=== PATIENT | female | born 1940 | race Caucasian/White ===

== ENCOUNTER → 2016-12-03 | Outpatient (CLI) | payer OTHER ==
[~2016-12-03] MED LIST: ACET-1311 PO; ALLO100T PO; ASPI81TA28 PO; CETI10TA73 PO; CHOL200010 PO; CITA40TA4 PO; CLOP1TAB15 PO; CYAN100020 PO; DICL1GEL34 TOP; FERR325T18 PO; FLV1 PO; METO-217 PO; PANT40TA PO; POLY1SOL6 OPB; SENN-61 PO; SIMV20TA2 PO; TRAM-10 PO
[2016-12-03 12:49] LABS: HEMATOCRIT 38.2 % (37-47); MEAN CORPUSCULAR HEMOGLOBIN 31.9 pg (25-34); MEAN CORPUSCULAR HGB CONC 31.9 g/dl (32-36); MEAN PLATELET VOLUME 10.6 fL (7.4-10.4); PLATELET COUNT 163 K/uL (130-400); RED BLOOD COUNT 3.82 M/uL (4.2-5.4); WHITE BLOOD COUNT 4.51 K/uL (4.8-10.8)
[2016-12-03 13:12] LABS: BLOOD UREA NITROGEN 37 mg/dl (7-18); BUN/CREATININE RATIO 28.4 (10-20); CALCIUM 9.4 mg/dl (8.5-10.1); CARBON DIOXIDE 32 mmol/L (21-32); CHLORIDE 101 mmol/L (98-107); GLUCOSE 72 mg/dl (70-99); POTASSIUM 4.4 mmol/L (3.5-5.1); SODIUM 137 mmol/L (136-145)
== END | disposition home or self-care (01) ==
LOC: C.LABWYN 14:03
PROVIDERS: ATTEND Internal Medicine
DX: I48.91 Unspecified atrial fibrillation (principal); N18.4 Chronic kidney disease, stage 4 (severe)

== ENCOUNTER 2017-03-04 01:22 | Emergency (ER) | payer OTHER ==
[~2017-03-04] VITALS: Ht 157.5 cm; Wt 63.4 kg
[2017-03-04 01:31] VITALS: TEMP 36.5; Ht 157.5 cm; Wt 63.4 kg
[2017-03-04] MEDS ORDERED: CLOP1TAB15 PO (02:37)
[2017-03-04] MEDS ORDERED: SIMV20TA2 PO (02:37)
[2017-03-04] MEDS ORDERED: PANT40TA PO (02:37)
[2017-03-04] MEDS ORDERED: ACET-1311 PO (02:37)
[2017-03-04] MEDS ORDERED: ASPI81TA28 PO (02:39)
[2017-03-04] MEDS ORDERED: CITA40TA4 PO (02:39)
[2017-03-04] MEDS ORDERED: ALLO100T PO (02:39)
[2017-03-04] MEDS ORDERED: FLV1 PO (02:40)
[2017-03-04] MEDS ORDERED: FERR325T18 PO (02:40)
[2017-03-04] MEDS ORDERED: CETI10TA73 PO (02:42)
[2017-03-04] MEDS ORDERED: METO-217 PO (02:42)
[2017-03-04] MEDS ORDERED: DICL1GEL34 TOP (02:43)
[2017-03-04] MEDS ORDERED: SENN-61 PO (02:43)
[2017-03-04] MEDS ORDERED: POLY1SOL6 OPB (02:47)
[2017-03-04] MEDS ORDERED: TRAM-10 PO (02:47)
[2017-03-04] MEDS ORDERED: CHOL200010 PO (02:47)
[2017-03-04] MEDS ORDERED: CYAN100020 PO (02:47)
[2017-03-04 05:11] VITALS: BP 159/90; PULSE 64; O2SAT 98
--- NOTE | 2017-03-04 06:39 | DIAGNOSTIC IMAGING REPORT ---
CT OF THE HEAD WITHOUT CONTRAST CLINICAL HISTORY: Fall. COMPARISON STUDY: No previous studies for comparison. TECHNIQUE: Helical axial images of the head were obtained without IV contrast. Automated exposure control was utilized for the study. A dose lowering technique was utilized adhering to the principles of ALARA. FINDINGS: No acute intracranial hemorrhage, midline shift or mass effect is present. The basilar cisterns are patent. There are no extra-axial collections. Ventricular dilatation is due to atrophy. There is moderate white matter hypodensity which suggests small vessel disease. A moderate size right forehead contusion is present. There is no calvarial fracture. Facial bones will be reported separately. IMPRESSION: 1. No acute intracranial findings. 2. Right forehead contusion. No calvarial fracture. Electronically signed by: Harjeet Myers M.D. 03/04/2017 6:38 AM Dictated Date/Time: 03/04/2017 6:35 AM
--- NOTE | 2017-03-04 06:52 | DIAGNOSTIC IMAGING REPORT ---
CT OF THE CERVICAL SPINE CLINICAL HISTORY: Neck pain status post trauma COMPARISON STUDY: No previous studies for comparison. CT DOSE: 933.08 mGy.cm TECHNIQUE: CT scan of the cervical spine was performed from the skull base to the thoracic inlet. Images are reviewed in the axial, sagittal, and coronal planes. IV contrast was not administered for this examination. A dose lowering technique was utilized adhering to the principles of ALARA. FINDINGS: The visualized portions of the lung apices reveal no evidence of pneumothorax. The prevertebral soft tissues are normal. No fractures or traumatic subluxations are visualized. There are moderately advanced multilevel degenerative changes. There is reversal of the normal cervical lordosis. There is 3.4 mm of anterior subluxation of C3 on C4. There is 3.6 mm of anterior subluxation of C4 on C5. These findings are likely degenerative. IMPRESSION: 1. No acute fractures. 2. Reversal of the normal cervical lordosis 3. 3.4 mm of anterior subluxation of C3 on C4. 3.6 mm of anterior subluxation of C4 and C5. The findings are likely degenerative 4. Multilevel degenerative change Electronically signed by: Roly Hardwick M.D. 03/04/2017 6:50 AM Dictated Date/Time: 03/04/2017 6:47 AM
--- NOTE | 2017-03-04 06:59 | EMERGENCY ROOM VISIT NOTE ---
History Report prepared by Ian: Higinio Solomon Under the Supervision of: Dr. Heron Mcgregor M.D. First contact with patient: 01:31 Chief Complaint: FALL Stated Complaint: FALL History of Present Illness The patient is a 76 year old female who presents to the Emergency Room with complaints of fall that happened prior to arrival. At this time, the patient needed to go the bathroom badly, so she quickly got up to go. On her way to the commode, she tripped and fell, hitting her head and her right arm in the process. She denies any loss of consciousness. She is experiencing a mild headache, posterior neck pain, and right arm pain all secondary to the fall. She denies any facial pain other than her nose. She is currently taking Pradaxa for her history of atrial fibrillation. She denies any hip pain or leg pain. 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 She denies and hip or leg pain. Review of Systems See HPI for pertinent positives & negatives. A total of 10 systems reviewed and were otherwise negative. Past Medical & Surgical Medical Problems: (1) Atrial fibrillation Family History Omitted secondary to patient's age. Social History Smoking Status: Never Smoker Smokeless Tobacco Use: No Alcohol Use: none Drug Use: none Occupation Status: retired Current/Historical Medications Scheduled Acetaminophen (Tylenol), 650 MG PO TID Allopurinol (Zyloprim), 100 MG PO DAILY Aspirin (Aspirin Ec), 81 MG PO DAILY Cetirizine Hcl (All Day Allergy), 5 MG PO DAILY Cholecalciferol (Vitamin D), 2,000 UNIT PO DAILY Citalopram Hydrobromide (Citalopram Hydrobromide), 40 MG PO DAILY Clopidogrel (Plavix), 75 MG PO DAILY Cyanocobalamin (Vitamin B12), 1,000 MCG PO DAILY Diclofenac Sodium (Topical) (Diclofenac Sodium), 1 APPLN TOP BID Ferrous Gluconate (Ferrous Gluconate), 324 MG PO BID Folic Acid (Folic Acid), 1 MG PO Q2D Metoprolol Succinate (Toprol Xl), 50 MG PO BID Pantoprazole (Protonix), 40 MG PO DAILY Polyethylene Glycol-Propylene (Systane Ultra), 2 DROPS OPB BID Senna (Senokot), 1 TAB PO HS Simvastatin (Zocor), 20 MG PO QPM Scheduled PRN Tramadol (Ultram), 50 MG PO Q6 PRN for Pain Allergies Coded Allergies: Ciprofloxacin (Verified Allergy, Unknown, unknown, 03/04/17) Clindamycin (Verified Allergy, Unknown, unknown, 03/04/17) Lisinopril (Verified Allergy, Unknown, unknown, 03/04/17) Physical Exam Vital Signs Date Time Temp Pulse Resp B/P (MAP) Pulse Ox O2 Delivery O2 Flow Rate FiO2 03/04/17 05:11 64 18 159/90 98 03/04/17 03:29 66 18 148/93 97 Room Air 03/04/17 01:31 36.5 85 18 170/102 96 Room Air Physical Exam Constitutional: Vital signs reviewed. Eyes: Pupils are equal round reactive to light. Conjunctiva are noninjected. ENT: Pharynx is clear without erythema or exudate. Mucous membranes are moist. Neck supple without meningeal signs. Hematoma and ecchymosis to the right forehead. Tenderness to the nasal bridge with a small abrasion. No midline tenderness to the c-spine. Respiratory: Clear to auscultation bilaterally. Breath sounds are equal bilaterally. Cardiovascular: Irregularly irregular rhythm and normal rate. No rubs or gallops. GI: Soft, nondistended and nontender. Bowel sounds are present. Musculoskeletal: No peripheral edema. Ecchymosis to the volar aspect of the right forearm. No bony tenderness to the right arm. No hip tenderness. Integumentary: No cyanosis. Neurological: The patient is awake and alert. Cranial nerves II-XII are intact. Motor is 5 out of 5 all extremities. Sensation is intact to light touch all extremities. Normal speech. No pronator drift. GCS 15. Psychiatric: Normal affect. Medical Decision & Procedures ER Provider Diagnostic Interpretation: Radiology results as stated below per my review and the radiologist's interpretation: CT HEAD: No ICH, mass effect or edema. Right frontal scalp hematoma with no underlying fracture. Moderate cerebral volume loss with chronic microvascular ischemia changes. Radiologist: Weston Moreland MD CT FACIAL: Question minimally displaced nasal bone fracture. Correlate for focal tenderness. No other fracture is seen. Right frontal scalp and periorbital hematoma. Radiologist: Weston Moreland MD CT C SPINE: No acute fracture or subluxation. 3 mm anterolisthesis of C3 on C4 and 4 mm anterolisthesis of C4 on C5, likely degenerative. No facet or disk space widening. Multilevel degenerative changes. Radiologist: Weston Moreland MD ED Course 0131: The patient was evaluated in room A12. A complete history and physical exam was performed. 0245: After reassessment, the patient is feeling better. We discussed the her test results and head injury precautions. She verbalized agreement of the treatment plan. She was discharged home. Medical Decision This is a 76-year-old female presents after mechanical fall with facial and head injuries. Differential diagnosis includes contusion, concussion, skull fracture, intracranial hemorrhage, nasal fracture. I did perform a limited focused review of portions of the patient's old chart on the electronic medical record. The patient has had no recent pertinent visits to this hospital. I did evaluate the patient as noted above. The patient suffered a mechanical fall while going to the bathroom. She has injuries to her head and face as well as right arm. Her wound was cleaned and dressed. She has no bony tenderness to her arm or other signs of extremity injuries. I did order a CT of the head, facial bones and cervical spine. I did review the images myself as well as the radiology report as described above. She has no intracranial hemorrhage. She does have a nondisplaced nasal fracture. I did discuss the test results with the patient. She is feeling better at this time. I did discuss head injury precautions with her. She was discharged back home. Head Trauma GCS Score: 15 Medication Reconcilliation Current Medication List: was personally reviewed by me Blood Pressure Screening Patient's blood pressure: Elevated blood pressure Blood pressure disposition: Referred to PCP Impression Primary Impression: Acute head injury Additional Impressions: Injury of right lower arm Nasal fracture Fall Anticoagulated Scribe Attestation The scribe's documentation has been prepared under my direct and personally reviewed by me in its entirety. I confirm that the note above accurately reflects all work, treatment, procedures, and medical decision making performed by me. Departure Information Dispostion Home / Self-Care Referrals Be Ayers D.O. Forms HOME CARE DOCUMENTATION FORM, IMPORTANT VISIT INFORMATION Patient Instructions Broken Nose - [facility], ED Head Injury Closed, My [facility] Additional Instructions You have been examined and treated today on an emergency basis only. This is not a substitute for, or an effort to provide, complete comprehensive medical care. It is impossible to recognize and treat all injuries or illnesses in a single emergency department visit. It is therefore important that you follow up closely with your physician. Call as soon as possible for an appointment. Return for worsening symptoms or if you develop fever, vomiting, severe headache , numbness or weakness on one side of your body, difficulty with your speech, vision or walking or any other concerning symptoms. Problem Qualifiers Primary Impression: Acute head injury Encounter type: initial encounter Qualified Codes: S09.90XA - Unspecified injury of head, initial encounter Additional Impressions: Injury of right lower arm Encounter type: initial encounter Qualified Codes: S59.911A - Unspecified injury of right forearm, initial encounter Nasal fracture Encounter type: initial encounter Fracture type: closed Qualified Codes: S02.2XXA - Fracture of nasal bones, initial encounter for closed fracture Fall Encounter type: initial encounter Qualified Codes: W19.XXXA - Unspecified fall, initial encounter
--- NOTE | 2017-03-04 07:17 | DIAGNOSTIC IMAGING REPORT ---
MAXILLOFACIAL CT CT DOSE: HISTORY: Facial pain. eval for fx TECHNIQUE: Multiaxial CT images of the maxillofacial region were performed and reformatted in the coronal plane without the use of contrast. A dose lowering technique was utilized adhering to the principles of ALARA. COMPARISON: None. FINDINGS: Age-indeterminate minimally displaced nasal bone fractures. Mild right nasal septal deviation. The orbital floors, lamina papyracea, skull base, mandible, pterygoid plates, and zygomatic arches are intact. Right periorbital soft tissue hematoma. The globes and retrobulbar fat are intact. IMPRESSION: Age-indeterminate minimally displaced nasal bone fractures. Right periorbital soft tissue hematoma. Electronically signed by: Cal Griggs M.D. 03/04/2017 7:16 AM Dictated Date/Time: 03/04/2017 7:12 AM
== END 2017-03-04 05:14 | disposition home or self-care (01) ==
LOC: EDBD 01:22 → C.EDA 01:26
DX: S09.90XA Unspecified injury of head, initial encounter (principal); S02.2XXA Fracture of nasal bones, initial encounter for closed fracture; S49.91XA Unspecified injury of right shoulder and upper arm, initial encounter; W01.0XXA Fall on same level from slipping, tripping and stumbling without subsequent striking against object, initial encounter; I48.91 Unspecified atrial fibrillation; Z79.01 Long term (current) use of anticoagulants; Z79.82 Long term (current) use of aspirin; Z79.899 Other long term (current) drug therapy; Z88.2 Allergy status to sulfonamides; Z88.8 Allergy status to other drugs, medicaments and biological substances

== ENCOUNTER 2017-06-30 01:36 | Emergency (ER) | payer OTHER ==
[~2017-06-30] VITALS: Ht 154.9 cm; Wt 63.3 kg
[2017-06-30 01:48] VITALS: TEMP 36.5; Ht 154.9 cm; Wt 63.3 kg
--- NOTE | 2017-06-30 01:53 | EMERGENCY ROOM VISIT NOTE ---
History Report prepared by Ian: Amando Redmond Under the Supervision of: Dr. Artemio Tavares D.O. First contact with patient: 01:41 Chief Complaint: SYNCOPE Stated Complaint: SYNCOPE History of Present Illness The patient is a 77 year old female who presents to the Emergency Room via [facility] following a mechanical fall that occurred just prior to arrival. The patient states that she took a shower this evening with the help of a nurse. She fell asleep in her chair following the shower, and needed to use the restroom when she awoke. 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 She lost consciousness from the fall. Nursing staff states that the patient was found on the floor of the bathroom and was not able to be aroused for 15 minutes. She is complaining of pain in her right forehead and left arm. She is on Plavix and Aspirin as a blood thinner. Source of History: patient Onset: Just prior to arrival Position: head Quality: other (Falling episode) Note: Left arm pain, syncope. Review of Systems See HPI for pertinent positives and negatives. A total of ten systems were reviewed and were otherwise negative. Past Medical & Surgical Medical Problems: (1) Atrial fibrillation Family History No pertinent family history secondary to age. Social History Smoking Status: Never Smoker Alcohol Use: none Drug Use: none Occupation Status: retired Current/Historical Medications Scheduled Acetaminophen (Tylenol), 650 MG PO TID Allopurinol (Zyloprim), 100 MG PO DAILY Aspirin (Aspirin Ec), 81 MG PO DAILY Cetirizine Hcl (All Day Allergy), 5 MG PO DAILY Cholecalciferol (Vitamin D), 2,000 UNIT PO DAILY Citalopram Hydrobromide (Citalopram Hydrobromide), 40 MG PO DAILY Clopidogrel (Plavix), 75 MG PO DAILY Cyanocobalamin (Vitamin B12), 1,000 MCG PO DAILY Diclofenac Sodium (Topical) (Diclofenac Sodium), 1 APPLN TOP BID Ferrous Gluconate (Ferrous Gluconate), 324 MG PO BID Folic Acid (Folic Acid), 1 MG PO Q2D Metoprolol Succinate (Toprol Xl), 50 MG PO BID Pantoprazole (Protonix), 40 MG PO DAILY Polyethylene Glycol-Propylene (Systane Ultra), 2 DROPS OPB BID Senna (Senokot), 1 TAB PO HS Simvastatin (Zocor), 20 MG PO QPM Scheduled PRN Tramadol (Ultram), 50 MG PO Q6 PRN for Pain Allergies Coded Allergies: Ciprofloxacin (Verified Allergy, Unknown, unknown, 03/04/17) Clindamycin (Verified Allergy, Unknown, unknown, 03/04/17) Lisinopril (Verified Allergy, Unknown, unknown, 03/04/17) Physical Exam Vital Signs Date Time Temp Pulse Resp B/P (MAP) Pulse Ox O2 Delivery O2 Flow Rate FiO2 06/30/17 03:10 66 19 122/67 95 Room Air 06/30/17 02:14 65 16 128/69 99 Room Air 06/30/17 02:05 58 06/30/17 01:55 99 Room Air 06/30/17 01:55 99 Room Air 06/30/17 01:48 36.5 60 18 169/81 98 Room Air Physical Exam GENERAL: Awake, alert, well-appearing, in no distress HENT: Right forehead contusion. Oropharynx unremarkable. EYES: Normal conjunctiva. Sclera non-icteric. NECK: Supple. No nuchal rigidity. FROM. No JVD. RESPIRATORY: Clear to auscultation. CARDIAC: Regular rate, normal rhythm. Extremities warm and well perfused. Pulses equal. ABDOMEN: Soft, non-distended. No tenderness to palpation. No rebound or guarding. Large left lateral hernia that is reducible. RECTAL: Deferred. MUSCULOSKELETAL: There is tenderness to the left shoulder proximal. NO obvious deformity. Chest examination reveals no tenderness. The back is symmetrical on inspection without obvious abnormality. There is no CVA tenderness to palpation. No joint edema. LOWER EXTREMITIES: Calves are equal size bilaterally and non-tender. No edema. No discoloration. NEURO: Normal sensorium. No sensory or motor deficits noted. SKIN: No rash or jaundice noted. Medical Decision & Procedures ER Provider Diagnostic Interpretation: X ray results as stated below per my interpretation and radiologist interpretation. Other radiology results as stated below per my review and radiologist interpretation CT HEAD: Involutional and chronic small bessel ischemic changes. No ICH, mass effect, or edema. No skull fracture. Visualized sinuses and mastoid air cells are clear. CT C SPINE: There is cervical kyphosis. Vertebral body heights are maintained. There are multilevel degenerative changes with 2.5 mm atherolisthesis of C2 on C3 and 3.5 anterolisthesis of C3 on C4, likely related to facet arthropathy. There is no evidence of acute fracture or subluxation. Laboratory Results 06/30/17 01:55 Red Blood Count 3.48, Mean Corpuscular Volume 97.4, Mean Corpuscular Hemoglobin 31.9, Mean Corpuscular Hemoglobin Concent 32.7, Mean Platelet Volume 9.5, Neutrophils (%) (Auto) 62.9, Lymphocytes (%) (Auto) 20.5, Monocytes (%) (Auto) 5.8, Eosinophils (%) (Auto) 10.1, Basophils (%) (Auto) 0.3, Neutrophils # (Auto ) 4.53, Lymphocytes # (Auto) 1.48, Monocytes # (Auto) 0.42, Eosinophils # (Auto ) 0.73, Basophils # (Auto) 0.02 06/30/17 01:55 Test 06/30/17 01:55 White Blood Count 7.21 K/uL (4.8-10.8) Red Blood Count 3.48 M/uL (4.2-5.4) Hemoglobin 11.1 g/dL (12.0-16.0) Hematocrit 33.9 % (37-47) Mean Corpuscular Volume 97.4 fL (80-100) Mean Corpuscular Hemoglobin 31.9 pg (25-34) Mean Corpuscular Hemoglobin Concent 32.7 g/dl (32-36) Platelet Count 159 K/uL (130-400) Mean Platelet Volume 9.5 fL (7.4-10.4) Neutrophils (%) (Auto) 62.9 % Lymphocytes (%) (Auto) 20.5 % Monocytes (%) (Auto) 5.8 % Eosinophils (%) (Auto) 10.1 % Basophils (%) (Auto) 0.3 % Neutrophils # (Auto) 4.53 K/uL (1.4-6.5) Lymphocytes # (Auto) 1.48 K/uL (1.2-3.4) Monocytes # (Auto) 0.42 K/uL (0.11-0.59) Eosinophils # (Auto) 0.73 K/uL (0-0.5) Basophils # (Auto) 0.02 K/uL (0-0.2) RDW Standard Deviation 50.8 fL (36.4-46.3) RDW Coefficient of Variation 14.2 % (11.5-14.5) Immature Granulocyte % (Auto) 0.4 % Immature Granulocyte # (Auto) 0.03 K/uL (0.00-0.02) Prothrombin Time 10.7 SECONDS (9.0-12.0) Prothromb Time International Ratio 1.0 (0.9-1.1) Anion Gap 4.0 mmol/L (3-11) Est Creatinine Clear Calc Drug Dose 23.0 ml/min Estimated GFR () 32.9 Estimated GFR (Non- 28.4 BUN/Creatinine Ratio 22.5 (10-20) Calcium Level 9.0 mg/dl (8.5-10.1) Total Bilirubin 0.4 mg/dl (0.2-1) Direct Bilirubin 0.1 mg/dl (0-0.2) Aspartate Amino Transf (AST/SGOT) 49 U/L (15-37) Alanine Aminotransferase (ALT/SGPT) 87 U/L (12-78) Alkaline Phosphatase 68 U/L (45-117) Total Protein 7.1 gm/dl (6.4-8.2) Albumin 3.7 gm/dl (3.4-5.0) Laboratory results reviewed by me ECG Indication: syncope Rate (beats per minute): 63 Rhythm: atrial fibrillation Findings: no acute ischemic change, no ectopy ED Course 0143: The patient was evaluated in room A3. A complete history and physical exam was performed. 0312: I reevaluated the patient. Reevaluation is totally normal. Discussed results and discharge instructions: she verbalized understanding and agreement. The patient is ready for discharge. Medical Decision Differential diagnosis: Etiologies such as vasovagal event, infection, hypoglycemia, electrolyte abnormalities, cardiac sources, intracerebral event, toxicologic, neurologic, as well as others were entertained. Repeat examination of patient at 3:19 AM she is resting in no distress nonfocal GCS of 15. Patient reportedly may have had a non-syncopal fall earlier this evening clearly had right sided for head trauma. Patient's on Plavix and aspirin she underwent lab and radiologic imaging. Patient states that she feels fine on reexamination at 319 and I discussed evaluation with the patient I feel comfortable discharging her home Medication Reconcilliation Current Medication List: was personally reviewed by me Blood Pressure Screening Patient's blood pressure: Normal blood pressure Impression Primary Impression: Closed head injury Additional Impression: Fall Scribe Attestation The scribe's documentation has been prepared under my direction and personally reviewed by me in its entirety. I confirm that the note above accurately reflects all work, treatment, procedures, and medical decision making performed by me. Departure Information Dispostion Home / Self-Care Referrals Be Ayers D.O. (PCP) Patient Instructions ED Head Injury Closed, My [facility] Problem Qualifiers
[2017-06-30 01:55] VITALS: O2SAT 99
[2017-06-30 02:18] LABS: BASO % 0.3 %; BASO ABS # 0.02 K/uL (0-0.2); COMPLETE YES; EOS % 10.1 %; HEMATOCRIT 33.9 % (37-47); IG% 0.4 %; LYMPH % 20.5 %; LYMPH ABS # 1.48 K/uL (1.2-3.4); MEAN CELL VOLUME 97.4 fL (80-100); MEAN CORPUSCULAR HEMOGLOBIN 31.9 pg (25-34); MEAN CORPUSCULAR HGB CONC 32.7 g/dl (32-36); MEAN PLATELET VOLUME 9.5 fL (7.4-10.4); MONO % 5.8 %; NEUT % 62.9 %; PLATELET COUNT 159 K/uL (130-400); RED BLOOD COUNT 3.48 M/uL (4.2-5.4); WHITE BLOOD COUNT 7.21 K/uL (4.8-10.8)
[2017-06-30 02:25] LABS: PROTHROMBIN TIME (PATIENT) 10.7 SECONDS (9.0-12.0)
[2017-06-30 02:27] LABS: BUN/CREATININE RATIO 22.5 (10-20); CREATININE 1.69 mg/dl (0.60-1.20); POTASSIUM 4.4 mmol/L (3.5-5.1)
[2017-06-30 03:30] VITALS: BP 102/65; PULSE 60; O2SAT 95
--- NOTE | 2017-06-30 06:47 | DIAGNOSTIC IMAGING REPORT ---
HEAD WITHOUT CONTRAST (CT) CLINICAL HISTORY: 77 years-old Female with pain. Acute head pain status post syncope TECHNIQUE: Multiple axial CT images of the head were obtained without contrast. A dose lowering technique was utilized adhering to the principles of ALARA. COMPARISON: CT cervical spine of same day, CT head 03/04/2017. FINDINGS: No acute intracranial hemorrhage, midline shift, intracranial mass, hydrocephalus, territorial ischemia or abnormal extra-axial collection. Moderate to advanced atrophy with ex vacuo ventriculomegaly and advanced chronic microvascular ischemic changes. Vascular calcifications are again seen at the level of the skull base. Remote appearing lacunar infarctions of the basal ganglia. The calvarium is intact. The paranasal sinuses, mastoid air cells, and middle ear cavities are clear. Mildly heterogeneous appearance of the bone marrow is unchanged and nonspecific. Mild right periorbital soft tissue swelling. IMPRESSION: Mild right periorbital soft tissue swelling without acute intracranial abnormality or calvarial fracture. The above report was generated using voice recognition software. It may contain grammatical, syntax or spelling errors. Electronically signed by: Momo Drummond M.D. 06/30/2017 6:46 AM Dictated Date/Time: 06/30/2017 6:43 AM
--- NOTE | 2017-06-30 06:53 | DIAGNOSTIC IMAGING REPORT ---
CERVICAL SPINE W/O CT DOSE: 966.16 mGy.cm HISTORY: Trauma. Mental status change. pain TECHNIQUE: Multiaxial CT images of the cervical spine were performed and reformatted in the sagittal and coronal plane without the use of contrast. A dose lowering technique was utilized adhering to the principles of ALARA. COMPARISON: None. FINDINGS: Considerable reversal of the normal cervical curvature. Grade 1 anterolisthesis of C3 on C4 and C4 on C5 felt to be secondary to degenerative changes of the posterior elements. Degenerative change of vertebral endplates. Degenerative changes C1-C2 complex. IMPRESSION: Degenerative change. Muscular spasm. No acute bony abnormality. The above report was generated using voice recognition software. It may contain grammatical, syntax or spelling errors. Electronically signed by: Juan Jose Cardenas M.D. 06/30/2017 6:52 AM Dictated Date/Time: 06/30/2017 6:51 AM
== END 2017-06-30 03:30 | disposition home or self-care (01) ==
LOC: EDBD 01:36 → C.EDA 01:39
DX: S00.83XA Contusion of other part of head, initial encounter (principal); M79.602 Pain in left arm; W18.39XA Other fall on same level, initial encounter; Y93.89 Activity, other specified; Y92.121 Bathroom in nursing home as the place of occurrence of the external cause; I48.91 Unspecified atrial fibrillation; Z79.82 Long term (current) use of aspirin; Z79.02 Long term (current) use of antithrombotics/antiplatelets

== ENCOUNTER 2017-07-17 08:09 | Emergency (ER) | payer OTHER ==
[~2017-07-17] VITALS: Ht 154.9 cm; Wt 64.3 kg
[2017-07-17 08:15] VITALS: TEMP 36.6; Ht 154.9 cm; Wt 64.3 kg
[2017-07-17] MEDS ORDERED: POLYSOL4 OP (08:24)
[2017-07-17] MEDS ORDERED: IBUP-1050 PO (08:24)
[2017-07-17] MEDS ORDERED: DTR5 PO (08:24)
[2017-07-17] MEDS ORDERED: CETI10TA62 PO (08:24)
[2017-07-17 08:36] VITALS: O2SAT 97
--- NOTE | 2017-07-17 08:46 | EMERGENCY ROOM VISIT NOTE ---
History Report prepared by Ian: Alda Gore Under the Supervision of: Dr. Pankaj Covarrubias M.D. First contact with patient: 08:12 Stated Complaint: FALL/HIP PAIN History of Present Illness The patient is a 77 year old white female with a past medical history of atrial fibrillation who presents to the ED with a cc of a sudden fall that occurred just prior to arrival. Positive pain in right hip. Negative loss of consciousness, head trauma, back pain. She currently rates her discomfort as a 7/10 in severity. Per nursing notes that the patient was recently evaluated in the emergency department after a fall. Nursing notes report that the patient had two falls today, one after going to the bathroom and the second while she was ambulating with assistance. The patient states that she is on Aspirin and Plavix. She states that she fell due to the pain in her right hip. Source of History: patient Onset: prior to arrival Position: other (global) Symptom Intensity: 7/10 Quality: other (fall) Timing: other (sudden) Associated Symptoms: No LOC Note: Associated Symptoms: right hip pain Review of Systems See HPI for pertinent positives and negatives. A total of ten systems were reviewed and were otherwise negative. Past Medical & Surgical Medical Problems: (1) Atrial fibrillation Family History Noncontributory secondary to age Social History Smoking Status: Never Smoker Alcohol Use: none Drug Use: none Occupation Status: retired Current/Historical Medications Scheduled Acetaminophen (Tylenol), 650 MG PO TID Allopurinol (Zyloprim), 100 MG PO DAILY Aspirin (Aspirin Ec), 81 MG PO DAILY Cetirizine Hcl (Qc All Day Allergy), 5 MG PO DAILY Cholecalciferol (Vitamin D), 2,000 UNIT PO DAILY Citalopram Hydrobromide (Citalopram Hydrobromide), 40 MG PO DAILY Clopidogrel (Plavix), 75 MG PO DAILY Cyanocobalamin (Vitamin B12), 1,000 MCG PO DAILY Diclofenac Sodium (Topical) (Diclofenac Sodium), 1 APPLN TOP BID Ferrous Gluconate (Ferrous Gluconate), 324 MG PO BID Folic Acid (Folic Acid), 1 MG PO Q2D Metoprolol Succinate (Toprol Xl), 50 MG PO BID Oxybutynin Chloride (Oxybutynin Chloride), 1 TAB PO TID Pantoprazole (Protonix), 40 MG PO DAILY Polyethylene Glycol-Propylene (Systane Ultra), 2 DROPS OPB BID Polyethylene Glycol-Propylene (Systane), 2 DROPS OP QID Senna (Senokot), 1 TAB PO HS Simvastatin (Zocor), 20 MG PO QPM Miscellaneous Medications Ibuprofen (Advil), 200 MG PO Allergies Coded Allergies: Ciprofloxacin (Verified Allergy, Unknown, unknown, 07/17/17) Clindamycin (Verified Allergy, Unknown, unknown, 07/17/17) Lisinopril (Verified Allergy, Unknown, unknown, 07/17/17) Physical Exam Vital Signs Date Time Temp Pulse Resp B/P (MAP) Pulse Ox O2 Delivery O2 Flow Rate FiO2 07/17/17 11:26 83 18 97 07/17/17 11:21 83 20 98 07/17/17 11:16 83 17 94 07/17/17 11:11 81 26 88 07/17/17 11:06 84 14 97 07/17/17 11:01 89 17 125/93 95 07/17/17 10:56 88 17 95 07/17/17 10:51 84 17 96 07/17/17 10:46 87 20 95 07/17/17 10:41 90 18 95 07/17/17 10:36 93 16 97 07/17/17 10:31 93 17 123/77 96 07/17/17 10:26 88 19 97 07/17/17 10:21 84 18 98 07/17/17 10:18 85 18 115/85 97 Room Air 07/17/17 10:16 81 22 91 07/17/17 10:11 82 26 84 07/17/17 10:06 87 17 91 07/17/17 10:05 115/85 07/17/17 09:01 111/69 07/17/17 08:41 84 07/17/17 08:39 82 19 97 07/17/17 08:36 97 Room Air 07/17/17 08:34 120/77 07/17/17 08:15 36.6 76 18 108/81 97 Room Air Physical Exam GENERAL: Awake, alert, well-appearing, NAD HENT: Normocephalic, atraumatic. EYES: Normal conjunctiva. Sclera non-icteric. Right periorbital ecchymosis, no proptosis, EOMI, gross vision intact. NECK: Supple. No nuchal rigidity. FROM. No midline c-spine TTP RESPIRATORY: CTAB, no rhonchi, wheezing, crackles CARDIAC: RRR, no MRG ABDOMEN: Soft, NTND, BS+ MSK: No chest wall, back TTP, no LE edema, right elbow has diffuse posterior swelling with ecchymosis, neuro intact distally. Right hip with large area of ecchymosis and swelling with TTP, leg does not appear short, NVI distally. NEURO: GCS 15, CN 2-12 intact, moves all 4s on command SKIN: No rash or jaundice noted. Medical Decision & Procedures ER Provider Diagnostic Interpretation: Radiology results as stated below per my review and radiologist interpretation: MAXILLOFACIAL CT WITHOUT CONTRAST CLINICAL HISTORY: s/p fall, bruising to R forehead. COMPARISON STUDY: Maxillofacial CT March 04, 2017. TECHNIQUE: A maxillofacial CT was performed without IV contrast. Coronal and sagittal reformats were viewed. A dose lowering technique was utilized adhering to the principles of ALARA. FINDINGS: There is a small left forehead contusion. The globes are intact. There is no retrobulbar hematoma. There is no acute facial fracture. Alignment of the temporomandibular joints is anatomic. There is mild polypoid mucosal thickening of the right maxillary sinus. Cervical spine CT will be reported separately. There are suspected old bilateral nasal bone fractures. These are unchanged since CT of March 04, 2017. IMPRESSION: No acute facial fracture. Electronically signed by: Harjeet Myers M.D. 07/17/2017 9:30 AM Dictated Date/Time: 07/17/2017 9:26 AM R PELVIS/UNILATERAL HIP 2-3VIEWS CLINICAL HISTORY: s/p fall, asa/plavix, hematoma, bruising R hip COMPARISON: None FINDINGS: The patient is status post left hip arthroplasty. The distal aspect of the femoral component is not visualized on this exam but no periprosthetic fracture is identified. There is extensive vascular calcification. The sacroiliac joints and symphysis pubis are intact. No acute fracture within the pelvis or hips is identified. There is moderate right hip arthritis. IMPRESSION: 1. No acute fracture within the pelvis or hips. 2. Status post left hip arthroplasty. Electronically signed by: Harjeet Myers M.D. 07/17/2017 9:13 AM Dictated Date/Time: 07/17/2017 9:[address] HEAD WITHOUT CONTRAST (CT) CLINICAL HISTORY: Head pain status post trauma COMPARISON STUDY: 06/30/2017 TECHNIQUE: Axial CT of the brain is performed from the vertex to the skull base. IV contrast was not administered for this examination. A dose lowering technique was utilized adhering to the principles of ALARA. CT DOSE: 638.56 mGycm FINDINGS: No intra or extra-axial mass lesions are visualized. There is no CT evidence of acute cortical infarction. There is no evidence of midline shift. There is no acute hemorrhage. No calvarial fractures are visualized. There are patchy white matter hypodensities likely on a small vessel basis. There is stable ventricular dilatation, finding which is felt to be secondary to volume loss. There is no evidence of acute sinusitis. There is minor frontal scalp swelling IMPRESSION: No acute intracranial findings Electronically signed by: Roly Hardwick M.D. 07/17/2017 9:18 AM Dictated Date/Time: 07/17/2017 9:17 AM R ELBOW MIN 3 VIEWS ROUTINE HISTORY: 77 years-old Female s/p fall acute right elbow pain status post fall COMPARISON: None available TECHNIQUE: 3 views of the right elbow FINDINGS: Peripheral vascular disease. Moderate to severe soft tissue swelling about the elbow, greatest dorsally. Possible small joint effusion. Dystrophic appearing calcifications are seen within the region of the distal triceps tendon adjacent to the left parotid process and also within the region of the common extensor tendon. Mild marginal spurring and joint space narrowing about the elbow. No acute fracture or subluxation. IMPRESSION: 1. Moderate to severe focal soft tissue swelling about the elbow, greatest dorsally with suspected small joint effusion. No acute fracture or dislocation. 2. Mild degenerative changes about the elbow with dystrophic appearing calcifications within the region of the distal triceps and common extensor tendons. 3. Peripheral vascular disease. The above report was generated using voice recognition software. It may contain grammatical, syntax or spelling errors. Electronically signed by: Momo Drummond M.D. 07/17/2017 8:59 AM Dictated Date/Time: 07/17/2017 8:57 AM CHEST ONE VIEW PORTABLE CLINICAL HISTORY: Fall. COMPARISON STUDY: No previous studies for comparison. FINDINGS: No pneumothorax or pleural effusion is present. Moderate cardiomegaly is noted without evidence of pulmonary edema. No airspace opacities are identified. There is severe arthritis of the left glenohumeral joint with elevation of both humeral heads which suggests chronic rotator cuff tears. Lordotic positioning is noted on this examination. There are numerous bilateral rib fractures which are likely old. An anterolateral right eighth rib fracture is age indeterminate but probably old. There is a suspected calcified AP window lymph node. IMPRESSION: 1. No acute cardiopulmonary findings. 2. Moderate cardiomegaly. 3. Numerous bilateral rib fractures which are likely old. Electronically signed by: Harjeet Myers M.D. 07/17/2017 9:02 AM Dictated Date/Time: 07/17/2017 8:[address] OF THE CERVICAL SPINE WITHOUT CONTRAST CLINICAL HISTORY: Fall. COMPARISON STUDY: Cervical spine CT June 30, 2017. TECHNIQUE: Helical axial images of the cervical spine were obtained without IV contrast. Sagittal and coronal reconstructions were viewed. A dose lowering technique was utilized adhering to the principles of ALARA. FINDINGS: Reversal of the normal cervical lordosis is unchanged from earlier studies. 3 mm of anterolisthesis of C3 on C4 and C4 on C5 is also unchanged and likely due to facet arthrosis. There is no acute cervical spine fracture. There is severe multilevel facet arthrosis and moderate multilevel degenerative disc disease. The craniocervical junction is intact. There is no acute cervical spine fracture. There is no prevertebral edema. IMPRESSION: 1. No acute cervical spine fracture or subluxation. 2. No change in appearance of the cervical spine since prior studies. Moderate multilevel degenerative disc disease and severe facet arthrosis. Electronically signed by: Harjeet Myers M.D. 07/17/2017 9:25 AM Dictated Date/Time: 07/17/2017 9:17 AM Laboratory Results 07/17/17 09:00 Red Blood Count 3.03, Mean Corpuscular Volume 102.0, Mean Corpuscular Hemoglobin 32.7, Mean Corpuscular Hemoglobin Concent 32.0, Mean Platelet Volume 9.2, Neutrophils (%) (Auto) 79.2, Lymphocytes (%) (Auto) 13.5, Monocytes (%) ( Auto) 4.3, Eosinophils (%) (Auto) 2.4, Basophils (%) (Auto) 0.2, Neutrophils # ( Auto) 8.25, Lymphocytes # (Auto) 1.41, Monocytes # (Auto) 0.45, Eosinophils # ( Auto) 0.25, Basophils # (Auto) 0.02 07/17/17 09:00 Test 07/17/17 09:00 White Blood Count 10.42 K/uL (4.8-10.8) Red Blood Count 3.03 M/uL (4.2-5.4) Hemoglobin 9.9 g/dL (12.0-16.0) Hematocrit 30.9 % (37-47) Mean Corpuscular Volume 102.0 fL (80-100) Mean Corpuscular Hemoglobin 32.7 pg (25-34) Mean Corpuscular Hemoglobin Concent 32.0 g/dl (32-36) Platelet Count 192 K/uL (130-400) Mean Platelet Volume 9.2 fL (7.4-10.4) Neutrophils (%) (Auto) 79.2 % Lymphocytes (%) (Auto) 13.5 % Monocytes (%) (Auto) 4.3 % Eosinophils (%) (Auto) 2.4 % Basophils (%) (Auto) 0.2 % Neutrophils # (Auto) 8.25 K/uL (1.4-6.5) Lymphocytes # (Auto) 1.41 K/uL (1.2-3.4) Monocytes # (Auto) 0.45 K/uL (0.11-0.59) Eosinophils # (Auto) 0.25 K/uL (0-0.5) Basophils # (Auto) 0.02 K/uL (0-0.2) RDW Standard Deviation 61.4 fL (36.4-46.3) RDW Coefficient of Variation 16.5 % (11.5-14.5) Immature Granulocyte % (Auto) 0.4 % Immature Granulocyte # (Auto) 0.04 K/uL (0.00-0.02) Prothrombin Time 10.5 SECONDS (9.0-12.0) Prothromb Time International Ratio 1.0 (0.9-1.1) Activated Partial Thromboplast Time 22.7 SECONDS (21.0-31.0) Partial Thromboplastin Ratio 0.9 Anion Gap 4.0 mmol/L (3-11) Est Creatinine Clear Calc Drug Dose 25.3 ml/min Estimated GFR () 36.5 Estimated GFR (Non- 31.5 BUN/Creatinine Ratio 24.0 (10-20) Calcium Level 8.9 mg/dl (8.5-10.1) Total Bilirubin 0.7 mg/dl (0.2-1) Direct Bilirubin 0.2 mg/dl (0-0.2) Aspartate Amino Transf (AST/SGOT) 22 U/L (15-37) Alanine Aminotransferase (ALT/SGPT) 34 U/L (12-78) Alkaline Phosphatase 64 U/L (45-117) Troponin I < 0.015 ng/ml (0-0.045) Total Protein 7.3 gm/dl (6.4-8.2) Albumin 3.7 gm/dl (3.4-5.0) Laboratory results reviewed by me ECG Indication: other (fall) Rate (beats per minute): 78 Rhythm: atrial fibrillation Findings: other (normal QRS, normal axis, no other STS changes or TWI) ED Course 0823: The patient was evaluated in room B7. A complete history and physical exam was performed. 1000: I reevaluated the patient and she is doing well. I discussed the test results with her and I discussed the treatment plan. She verbalized complete understanding and agreement. She is going to have an ambulation trial. 1120: The patient's ambulation trial went well. I discussed the test results with her and I discussed the treatment plan. She verbalized complete understanding and agreement. She is ready to go home. Medical Decision Differential diagnosis: Etiologies such as fracture, dislocation, intra-abdominal, pneumothorax, intrathoracic , intracranial, neurologic, as well as other traumatic pathologies were entertained. The patient is a 77 year old white female with a past medical history of atrial fibrillation who presents to the ED with a cc of a sudden fall that occurred just prior to arrival. Patient was seen and evaluated the bedside. Patient did suffer a fall this morning after she got up to use her walker and fell toward her right side. Patient appears to have struck her head although she denies any LOC. Patient does take aspirin and Plavix but does not take any other blood thinners but does have a history of A. fib. Patient states the other blood thinner was discontinued as she had had some issue prior secondary to bleeding. On exam the patient did have some pain to the right elbow and did have some ecchymosis there in addition to some ecchymosis to the right forehead in addition to some ecchymosis to the right lateral hip. Patient did not appear shortened and was neurovascularly intact distally. Patient did have plain films of the right hip and right elbow. Patient also did have CTs of the head and the neck. Patient had no noted fractures, ICH, or dislocation. Patient's EKG did show A. fib was rate controlled. Patient's other blood work was fairly unremarkable. Patient does have CK D which is essentially at baseline. She does have anemia. 1 point drop in hgb since prior being seen. Normal platelet count. No signs of symptomatic anemia ie SOB, CP, lightheadedness. I do believe this was a mechanical fall in nature and not related to syncope. Patient was able to ambulate although with some mild difficulty. I did discuss with the patient about rehabilitation. Patient declined inpatient rehabilitation. Patient does live at a personal detention where she does receive assistance. Patient was then deemed suitable for outpatient follow-up and treatment. Patient was given strict follow-up, discharge, and return precautions. All questions were answered. Patient was deemed suitable for outpatient follow-up at this time. Patient agreed with the plan of care and was safely discharged home. Medication Reconcilliation Current Medication List: was personally reviewed by me Blood Pressure Screening Patient's blood pressure: Normal blood pressure Blood pressure disposition: Did not require urgent referral Impression Primary Impression: Anemia Additional Impressions: Fall Contusion, hip Elbow contusion Forehead contusion Scribe Attestation The scribe's documentation has been prepared under my direction and personally reviewed by me in its entirety. I confirm that the note above accurately reflects all work, treatment, procedures, and medical decision making performed by me. Departure Information Dispostion Home / Self-Care Referrals Be Ayers D.O. (PCP) Forms HOME CARE DOCUMENTATION FORM, IMPORTANT VISIT INFORMATION, WORK / SCHOOL INSTRUCTIONS Patient Instructions Bruises Contusions, ED Tabatha CASTELAN [facility] Additional Instructions Please return to the emergency department if you have worsening or recurrent symptoms not amenable to at-home treatment. Please call for a follow-up appointment with her primary care physician. Please take your medications as prescribed. If you have other concerns and/or complaints please feel free to also call your primary care physician's office or return the ED for further evaluation, management, and treatment. You may take tylenol 1000 mg every 6 hours as needed for pain. Take your medications as prescribed. You have been examined and treated today on an emergency basis only. This is not a substitute for, or an effort to provide, complete comprehensive medical care. It is impossible to recognize and treat all injuries or illnesses in a single emergency department visit. It is therefore important that you follow up closely with [facility], your PCP, and/or your specialist(s). Call as soon as possible for an appointment. Thank you for your time and consideration. I look forward to speaking with you again soon. Please don't hesitate to call us if you have any questions. Problem Qualifiers Primary Impression: Anemia Anemia type: unspecified type Qualified Codes: D64.9 - Anemia, unspecified Additional Impressions: Fall Encounter type: initial encounter Qualified Codes: W19.XXXA - Unspecified fall, initial encounter Contusion, hip Encounter type: initial encounter Laterality: right Qualified Codes: S70.01XA - Contusion of right hip, initial encounter Elbow contusion Encounter type: initial encounter Laterality: right Qualified Codes: S50.01XA - Contusion of right elbow, initial encounter Forehead contusion Encounter type: initial encounter Qualified Codes: S00.83XA - Contusion of other part of head, initial encounter
--- NOTE | 2017-07-17 09:01 | DIAGNOSTIC IMAGING REPORT ---
R ELBOW MIN 3 VIEWS ROUTINE HISTORY: 77 years-old Female s/p fall acute right elbow pain status post fall COMPARISON: None available TECHNIQUE: 3 views of the right elbow FINDINGS: Peripheral vascular disease. Moderate to severe soft tissue swelling about the elbow, greatest dorsally. Possible small joint effusion. Dystrophic appearing calcifications are seen within the region of the distal triceps tendon adjacent to the left parotid process and also within the region of the common extensor tendon. Mild marginal spurring and joint space narrowing about the elbow. No acute fracture or subluxation. IMPRESSION: 1. Moderate to severe focal soft tissue swelling about the elbow, greatest dorsally with suspected small joint effusion. No acute fracture or dislocation. 2. Mild degenerative changes about the elbow with dystrophic appearing calcifications within the region of the distal triceps and common extensor tendons. 3. Peripheral vascular disease. The above report was generated using voice recognition software. It may contain grammatical, syntax or spelling errors. Electronically signed by: Momo Drummond M.D. 07/17/2017 8:59 AM Dictated Date/Time: 07/17/2017 8:57 AM
--- NOTE | 2017-07-17 09:04 | DIAGNOSTIC IMAGING REPORT ---
CHEST ONE VIEW PORTABLE CLINICAL HISTORY: Fall. COMPARISON STUDY: No previous studies for comparison. FINDINGS: No pneumothorax or pleural effusion is present. Moderate cardiomegaly is noted without evidence of pulmonary edema. No airspace opacities are identified. There is severe arthritis of the left glenohumeral joint with elevation of both humeral heads which suggests chronic rotator cuff tears. Lordotic positioning is noted on this examination. There are numerous bilateral rib fractures which are likely old. An anterolateral right eighth rib fracture is age indeterminate but probably old. There is a suspected calcified AP window lymph node. IMPRESSION: 1. No acute cardiopulmonary findings. 2. Moderate cardiomegaly. 3. Numerous bilateral rib fractures which are likely old. Electronically signed by: Harjeet Myers M.D. 07/17/2017 9:02 AM Dictated Date/Time: 07/17/2017 8:59 AM
--- NOTE | 2017-07-17 09:14 | DIAGNOSTIC IMAGING REPORT ---
R PELVIS/UNILATERAL HIP 2-3VIEWS CLINICAL HISTORY: s/p fall, asa/plavix, hematoma, bruising R hip COMPARISON: None FINDINGS: The patient is status post left hip arthroplasty. The distal aspect of the femoral component is not visualized on this exam but no periprosthetic fracture is identified. There is extensive vascular calcification. The sacroiliac joints and symphysis pubis are intact. No acute fracture within the pelvis or hips is identified. There is moderate right hip arthritis. IMPRESSION: 1. No acute fracture within the pelvis or hips. 2. Status post left hip arthroplasty. Electronically signed by: Harjeet Myers M.D. 07/17/2017 9:13 AM Dictated Date/Time: 07/17/2017 9:02 AM
--- NOTE | 2017-07-17 09:20 | DIAGNOSTIC IMAGING REPORT ---
CT HEAD WITHOUT CONTRAST (CT) CLINICAL HISTORY: Head pain status post trauma COMPARISON STUDY: 06/30/2017 TECHNIQUE: Axial CT of the brain is performed from the vertex to the skull base. IV contrast was not administered for this examination. A dose lowering technique was utilized adhering to the principles of ALARA. CT DOSE: 638.56 mGycm FINDINGS: No intra or extra-axial mass lesions are visualized. There is no CT evidence of acute cortical infarction. There is no evidence of midline shift. There is no acute hemorrhage. No calvarial fractures are visualized. There are patchy white matter hypodensities likely on a small vessel basis. There is stable ventricular dilatation, finding which is felt to be secondary to volume loss. There is no evidence of acute sinusitis. There is minor frontal scalp swelling IMPRESSION: No acute intracranial findings Electronically signed by: Roly Hardwick M.D. 07/17/2017 9:18 AM Dictated Date/Time: 07/17/2017 9:17 AM
[2017-07-17 09:23] LABS: BASO % 0.2 %; BASO ABS # 0.02 K/uL (0-0.2); COMPLETE YES; EOS % 2.4 %; HEMATOCRIT 30.9 % (37-47); IG% 0.4 %; LYMPH % 13.5 %; LYMPH ABS # 1.41 K/uL (1.2-3.4); MEAN CORPUSCULAR HEMOGLOBIN 32.7 pg (25-34); MEAN PLATELET VOLUME 9.2 fL (7.4-10.4); MONO % 4.3 %; NEUT % 79.2 %; PLATELET COUNT 192 K/uL (130-400); RED BLOOD COUNT 3.03 M/uL (4.2-5.4); WHITE BLOOD COUNT 10.42 K/uL (4.8-10.8)
--- NOTE | 2017-07-17 09:26 | DIAGNOSTIC IMAGING REPORT ---
CT OF THE CERVICAL SPINE WITHOUT CONTRAST CLINICAL HISTORY: Fall. COMPARISON STUDY: Cervical spine CT June 30, 2017. TECHNIQUE: Helical axial images of the cervical spine were obtained without IV contrast. Sagittal and coronal reconstructions were viewed. A dose lowering technique was utilized adhering to the principles of ALARA. FINDINGS: Reversal of the normal cervical lordosis is unchanged from earlier studies. 3 mm of anterolisthesis of C3 on C4 and C4 on C5 is also unchanged and likely due to facet arthrosis. There is no acute cervical spine fracture. There is severe multilevel facet arthrosis and moderate multilevel degenerative disc disease. The craniocervical junction is intact. There is no acute cervical spine fracture. There is no prevertebral edema. IMPRESSION: 1. No acute cervical spine fracture or subluxation. 2. No change in appearance of the cervical spine since prior studies. Moderate multilevel degenerative disc disease and severe facet arthrosis. Electronically signed by: Harjeet Myers M.D. 07/17/2017 9:25 AM Dictated Date/Time: 07/17/2017 9:17 AM
[2017-07-17 09:30] LABS: PARTIAL THROMBOPLASTIN RATIO 0.9; PROTHROMBIN TIME (PATIENT) 10.5 SECONDS (9.0-12.0)
--- NOTE | 2017-07-17 09:31 | DIAGNOSTIC IMAGING REPORT ---
MAXILLOFACIAL CT WITHOUT CONTRAST CLINICAL HISTORY: s/p fall, bruising to R forehead. COMPARISON STUDY: Maxillofacial CT March 04, 2017. TECHNIQUE: A maxillofacial CT was performed without IV contrast. Coronal and sagittal reformats were viewed. A dose lowering technique was utilized adhering to the principles of ALARA. FINDINGS: There is a small left forehead contusion. The globes are intact. There is no retrobulbar hematoma. There is no acute facial fracture. Alignment of the temporomandibular joints is anatomic. There is mild polypoid mucosal thickening of the right maxillary sinus. Cervical spine CT will be reported separately. There are suspected old bilateral nasal bone fractures. These are unchanged since CT of March 04, 2017. IMPRESSION: No acute facial fracture. Electronically signed by: Harjeet Myers M.D. 07/17/2017 9:30 AM Dictated Date/Time: 07/17/2017 9:26 AM
[2017-07-17 09:43] LABS: ALT/SGPT 34 U/L (12-78); AST/SGOT 22 U/L (15-37); BLOOD UREA NITROGEN 37 mg/dl (7-18); CALCIUM 8.9 mg/dl (8.5-10.1); CARBON DIOXIDE 29 mmol/L (21-32); CHLORIDE 101 mmol/L (98-107); CREATININE 1.55 mg/dl (0.60-1.20); GLUCOSE 111 mg/dl (70-99); POTASSIUM 4.6 mmol/L (3.5-5.1); SODIUM 134 mmol/L (136-145)
[2017-07-17 09:48] LABS: ALKALINE PHOSPHATASE 64 U/L (45-117)
[2017-07-17 11:01] VITALS: BP 125/93
[2017-07-17 11:26] VITALS: PULSE 83; O2SAT 97
[2017-07-20] MEDS ORDERED: CEFU1TAB35 PEG (11:50)
[2017-07-20] MEDS ORDERED: CEFU1TAB35 PO (12:53)
== END 2017-07-17 11:34 | disposition home or self-care (01) ==
LOC: EDBD 08:09 → C.EDB 08:10
DX: D64.9 Anemia, unspecified (principal); W19.XXXA Unspecified fall, initial encounter; S70.01XA Contusion of right hip, initial encounter; S50.01XA Contusion of right elbow, initial encounter; S00.83XA Contusion of other part of head, initial encounter; I48.91 Unspecified atrial fibrillation; Z79.82 Long term (current) use of aspirin

== ENCOUNTER 2017-07-17 18:34 | Inpatient (IN) | payer OTHER ==
[~2017-07-17] VITALS: Ht 162.6 cm; Wt 62.7 kg
[~2017-07-17 18:34] MED LIST changes: +CETI10TA62 PO; +DTR5 PO; +IBUP-1050 PO; +POLYSOL4 OP
--- NOTE | 2017-07-17 19:08 | EMERGENCY ROOM VISIT NOTE ---
History Report prepared by Ian: Osmany Henderson Under the Supervision of: Dr. Chase Rich M.D. First contact with patient: 18:48 Chief Complaint: SYNCOPE (NEAR SYNCOPE) Stated Complaint: SYNCOPE Nursing Triage Summary: patient brought in by ems from [facility] patient reports being here for syncope this morning staff at [facility] reports patient having 3 syncopal episodes today patient reports right hip pain from previous falls History of Present Illness The patient is a 77 year old female who presents to the Emergency Room with complaints of resolved syncopal episodes that occurred this afternoon. She rates her discomfort as a 7/10 in severity. The patient reports that she was here this morning due to another syncopal episode and was discharged home. She states that since being discharged, she experienced three more syncopal episodes , which she does not remember. The patient reports that she was using her walker to go to the bathroom. She states that she was holding onto the side of the wall and she remembers slipping. The patient states that she hit her head and right hip. She states that she was helped back to bed. The patient states that it happened again on her way to the bathroom in the doorway. She states that she has been experiencing right hip pain since the falls. The patient states that she was able to eat dinner and denies having a syncopal episode after eating. She denies any abdominal pain. Source of History: patient Onset: this afternoon Position: other (global) Symptom Intensity: 7/10 Quality: other (global) Timing: resolved Associated Symptoms: No abdominal pain Note: Associated symptoms include right hip pain. Review of Systems See HPI for pertinent positives & negatives. A total of 10 systems reviewed and were otherwise negative. Past Medical & Surgical Medical Problems: (1) A-fib (2) CKD (chronic kidney disease), stage III (3) CVA (cerebral vascular accident) (4) Depression (5) Gout (6) HTN (hypertension) Surgical Problems: (1) History of hemiarthroplasty of left hip (2) History of hernia repair (3) History of hysterectomy Family History Patient reports no known family medical history. Social History Smoking Status: Former Smoker Alcohol Use: none Drug Use: none Housing Status: assisted living Occupation Status: retired Current/Historical Medications Scheduled Acetaminophen (Tylenol), 650 MG PO TID Allopurinol (Zyloprim), 100 MG PO DAILY Aspirin (Aspirin Ec), 81 MG PO DAILY Cetirizine Hcl (Qc All Day Allergy), 5 MG PO DAILY Cholecalciferol (Vitamin D), 2,000 UNIT PO DAILY Citalopram Hydrobromide (Citalopram Hydrobromide), 40 MG PO DAILY Clopidogrel (Plavix), 75 MG PO DAILY Cyanocobalamin (Vitamin B12), 1,000 MCG PO DAILY Diclofenac Sodium (Topical) (Diclofenac Sodium), 1 APPLN TOP BID Ferrous Gluconate (Ferrous Gluconate), 324 MG PO BID17 Folic Acid (Folic Acid), 1 MG PO Q2D Metoprolol Succinate (Toprol Xl), 50 MG PO BID Oxybutynin Chloride (Oxybutynin Chloride), 1 TAB PO TID Pantoprazole (Protonix), 40 MG PO QAM Polyethylene Glycol-Propylene (Systane Ultra), 2 DROPS OPB BID Senna (Senokot), 1 TAB PO HS Simvastatin (Zocor), 20 MG PO QPM Scheduled PRN Ibuprofen (Advil), 200-400 MG PO Q6H PRN for Pain Allergies Coded Allergies: Ciprofloxacin (Verified Allergy, Unknown, unknown, 07/17/17) Clindamycin (Verified Allergy, Unknown, unknown, 07/17/17) Lisinopril (Verified Allergy, Unknown, unknown, 07/17/17) Physical Exam Vital Signs Date Time Temp Pulse Resp B/P (MAP) Pulse Ox O2 Delivery O2 Flow Rate FiO2 07/17/17 21:22 85 18 142/71 99 Room Air 07/17/17 20:51 93 18 179/87 99 Room Air 95 168/108 111 116/63 07/17/17 19:45 83 18 113/72 98 Room Air 07/17/17 19:27 96 Room Air 07/17/17 18:57 93 07/17/17 18:43 36.8 86 18 126/94 97 Room Air Physical Exam GENERAL: Patient is a healthy-appearing well-nourished 77 year old female HEAD: Normocephalic atraumatic EYES: Ocular movements intact pupils equal and react to light. Ecchymosis to right eye orbit. OROPHARYNX mucous membranes are moist no exudates present no erythema or edema present NECK: Supple no nuchal rigidity CHEST: Good equal expansion LUNGS: Clear and equal to auscultation CARDIAC: Normal S1 and S2 ABDOMEN: Soft nontender no guarding BACK: No CVA tenderness EXTREMITIES: No pain upon palpation normal muscle strength in all groups no clubbing cyanosis or edema. Ecchymosis 1 ft x ft on right hip. Good range of motion to right hip and right knee free from pain. Neurovascularly intact. NEURO: Patient is following commands and answering questions appropriately. Alert and oriented x3 Cranial Nerves 2-12 grossly intact Medical Decision & Procedures ER Provider Diagnostic Interpretation: Radiology results as stated below per my review and radiologist interpretation: HEAD CT NONCONTRAST CT DOSE: HISTORY: Pt multiple syncopal episodes today, hit head TECHNIQUE: Multiaxial CT images of the head were performed without the use of intravenous contrast. Automated exposure control was utilized for this study. A dose lowering technique was utilized adhering to the principles of ALARA. Comparison: Head CT 07/17/2017. Findings: The paranasal sinuses and mastoid air cells are clear. The calvarium and skull base are intact. There is no mass, hematoma, midline shift, acute infarct. White matter hypodensity is nonspecific but suggestive of moderate microvascular ischemic change. The ventricles and sulci demonstrate moderate age-related involutional changes. Impression: No significant change compared to the prior study. No acute intracranial abnormality. Electronically signed by: Cal Griggs M.D. 07/17/2017 9:15 PM Dictated Date/Time: 07/17/2017 9:11 PM CHEST CTA for PULMONARY ARTERIES CT DOSE: HISTORY: Atypical chest pain. TECHNIQUE: Multiaxial CT images of the chest were performed following the intravenous administration of contrast to evaluate the pulmonary arteries. Maximal intensity projection images were also obtained. A dose lowering technique was utilized adhering to the principles of ALARA. COMPARISON STUDY: None. FINDINGS: Multiple old, healed bilateral rib fractures. No acute fractures identified. The central airways are patent. No pneumothorax. Mild interstitial thickening at the lung bases. This is likely chronic. Small focal density at the right lower lobe posteriorly may represent atelectasis. Calcified mediastinal lymph nodes. No hilar or mediastinal lymphadenopathy. The heart is mildly enlarged. No pleural effusions. Normal caliber thoracic aorta. No evidence for dissection within the ascending aorta or aortic arch. Inadequate contrast opacification within the descending thoracic aorta to assess for a dissection. No filling defects within the pulmonary arteries to suggest pulmonary embolus. IMPRESSION: 1. No evidence for pulmonary embolus. 2. Mild cardiomegaly. 3. Small focal density within the right lower lobe posteriorly. This favors atelectasis. However, a small pneumonia could also have a similar appearance. Electronically signed by: Cal Griggs M.D. 07/17/2017 8:58 PM Dictated Date/Time: 07/17/2017 8:47 PM ABDOMEN AND PELVIS CT WITH IV CONTRAST CT DOSE: 1606.85 mGy.cm HISTORY: Recent trauma. Pt anemic TECHNIQUE: Multiaxial CT images of the abdomen and pelvis were performed following the use of intravenous contrast. A dose lowering technique was utilized adhering to the principles of ALARA. COMPARISON STUDY: None. FINDINGS: No pneumoperitoneum. No pneumatosis. There is a left total hip prosthesis. Old distal sacral fracture. Mild superior endplate compression deformity at L1. This is also likely old. No acute fractures within the visualized osseous structures. There is a large left lateral abdominal wall hernia which contains multiple loops of small large bowel. There is associated atrophy of the left lateral abdominal wall musculature. There is a right gluteal/flank subcutaneous hematoma which measures approximately 15 x 14 x 10 cm. No evidence for retroperitoneal hematoma. A 6 mm hypodense lesion within the right hepatic lobe which is too small to characterize. Otherwise, the liver, gallbladder, pancreas, and adrenal glands are unremarkable. There is a 9 mm hypodense lesion within the spleen which is also too small to characterize. No hydronephrosis. A 2.5 cm cyst within the left kidney. A few indeterminate subcentimeter hypodense lesions within the right kidney. Moderate calcified plaque within the normal caliber abdominal aorta. Mild bladder wall thickening. Hysterectomy. No bowel wall thickening or obstruction. IMPRESSION: 1. Large right flank/gluteal subcutaneous hematoma measuring 15 x 14 x 10 cm. 2. No evidence for a retroperitoneal hematoma. 3. Large left lateral abdominal wall hernia containing multiple loops of large and small bowel. No evidence for bowel obstruction. 4. Multiple old fractures as described above. No acute fractures identified. Electronically signed by: Cal Griggs M.D. 07/17/2017 9:07 PM Dictated Date/Time: 07/17/2017 8:58 PM Laboratory Results 07/17/17 19:25 Red Blood Count 2.69, Mean Corpuscular Volume 101.5, Mean Corpuscular Hemoglobin 32.0, Mean Corpuscular Hemoglobin Concent 31.5, Mean Platelet Volume 9.4, Neutrophils (%) (Auto) 71.0, Lymphocytes (%) (Auto) 21.4, Monocytes (%) ( Auto) 7.0, Eosinophils (%) (Auto) 0.4, Basophils (%) (Auto) 0.1, Neutrophils # ( Auto) 5.48, Lymphocytes # (Auto) 1.65, Monocytes # (Auto) 0.54, Eosinophils # ( Auto) 0.03, Basophils # (Auto) 0.01 07/17/17 19:25 Test 07/17/17 19:16 07/17/17 19:25 07/17/17 19:27 Bedside Glucose 139 mg/dl (70-90) White Blood Count 7.72 K/uL (4.8-10.8) Red Blood Count 2.69 M/uL (4.2-5.4) Hemoglobin 8.6 g/dL (12.0-16.0) Hematocrit 27.3 % (37-47) Mean Corpuscular Volume 101.5 fL (80-100) Mean Corpuscular Hemoglobin 32.0 pg (25-34) Mean Corpuscular Hemoglobin Concent 31.5 g/dl (32-36) Platelet Count 185 K/uL (130-400) Mean Platelet Volume 9.4 fL (7.4-10.4) Neutrophils (%) (Auto) 71.0 % Lymphocytes (%) (Auto) 21.4 % Monocytes (%) (Auto) 7.0 % Eosinophils (%) (Auto) 0.4 % Basophils (%) (Auto) 0.1 % Neutrophils # (Auto) 5.48 K/uL (1.4-6.5) Lymphocytes # (Auto) 1.65 K/uL (1.2-3.4) Monocytes # (Auto) 0.54 K/uL (0.11-0.59) Eosinophils # (Auto) 0.03 K/uL (0-0.5) Basophils # (Auto) 0.01 K/uL (0-0.2) RDW Standard Deviation 61.2 fL (36.4-46.3) RDW Coefficient of Variation 16.5 % (11.5-14.5) Immature Granulocyte % (Auto) 0.1 % Immature Granulocyte # (Auto) 0.01 K/uL (0.00-0.02) Ovalocytes 1+ Schistocytes 1+ Bedside D-Dimer > 450 ng/mlFEU (0-450) Est Creatinine Clear Calc Drug Dose 21.9 ml/min Estimated GFR () 30.7 Estimated GFR (Non- 26.5 BUN/Creatinine Ratio 23.4 (10-20) Calcium Level 8.6 mg/dl (8.5-10.1) Total Bilirubin 0.7 mg/dl (0.2-1) Direct Bilirubin 0.2 mg/dl (0-0.2) Aspartate Amino Transf (AST/SGOT) 18 U/L (15-37) Alanine Aminotransferase (ALT/SGPT) 29 U/L (12-78) Alkaline Phosphatase 61 U/L (45-117) Total Creatine Kinase 62 U/L (26-192) Creatine Kinase MB 1.3 ng/ml (0.5-3.6) Creatine Kinase MB Ratio 2.1 (0-3.0) Troponin I < 0.015 ng/ml (0-0.045) Total Protein 6.9 gm/dl (6.4-8.2) Albumin 3.6 gm/dl (3.4-5.0) Thyroid Stimulating Hormone (TSH) 3.700 uIu/ml (0.300-4.500) Bedside Hemoglobin 8.5 g/dl (12.0-16.0) Bedside Hematocrit 25 % (37-47) Bedside Sodium 136 mEq/L (135-144) Bedside Potassium 4.7 mEq/L (3.3-5.0) Bedside Chloride 99 mEq/L (101-112) Bedside Total CO2 26 mEq/l (24-31) Anion Gap 17.0 mmol/L (16-25) Bedside Blood Urea Nitrogen 39 mg/dl (7-18) Bedside Creatinine 1.9 mg/dl (0.6-1.3) Bedside Glucose (other) 110 mg/dl (70-99) Bedside Ionized Calcium (Sharla) 1.12 mmol/l (1.12-1.32) Labs reviewed by ED physician. Medications Administered Medications (Trade) Dose Ordered Sig/Gely Route Start Time Stop Time Status Last Admin Dose Admin Sodium Chloride 500 ml @ 999 mls/hr Q31M STAT IV 07/17/17 19:32 07/17/17 20:02 DC 07/17/17 19:44 999 MLS/HR ECG Indication: syncope Rate (beats per minute): 97 Rhythm: atrial fibrillation Findings: T-wave inversion (Inferior), no acute ischemic change ED Course 1854: Past medical records reviewed. The patient was evaluated in room C07. A complete history and physical examination was performed. 1931: Ordered 500 ml @ 999 mls/hr IV. 2126: I reevaluated the patient and updated her on her results. I discussed the treatment plan and she agrees to the plan. The patient will be further evaluated. 2132: I discussed the patients case with RAMÓN Loomis [facility]ist. She understands the patients case and agrees to accept the patient. The patient will be further evaluated. Medical Decision Differential diagnosis: Etiologies such as vasovagal event, infection, hypoglycemia, electrolyte abnormalities, cardiac sources, intracerebral event, toxicologic, neurologic, as well as others were entertained. This is a 77-year-old female who presents emergency department complaining of syncope. Since the patient was discharged earlier today the patient has syncopized 3 times. She is complaining of pain to the right hip. Due to the multiple falls since her discharge and the patient being on Plavix she was sent for CAT scan of the head abdomen pelvis as well as the chest. The patient has a large hematoma to the right hip area and I believe this is where her hemoglobin drop came from. The patient was typed and crossed. I did discuss the case with the hospitalist service who agreed to admit the patient. She was given fluid for her creatinine. Patient was in agreement with the treatment plan. Medication Reconcilliation Current Medication List: was personally reviewed by me Blood Pressure Screening Patient's blood pressure: Normal blood pressure Consults Time Called: 2132 Consulting Physician: RAMÓN Loomis [facility] Returned Call: 2132 I discussed the patients case with Basia [facility]. She understands the patients case and agrees to accept the patient. The patient will be further evaluated. Impression Primary Impression: Syncope Additional Impressions: Anemia Hematoma Scribe Attestation The scribe's documentation has been prepared under my direction and personally reviewed by me in its entirety. I confirm that the note above accurately reflects all work, treatment, procedures, and medical decision making performed by me. Departure Information Dispostion Being Evaluated By Hospitalist Referrals Be Ayers D.O. (PCP) Patient Instructions My [facility] Health Problem Qualifiers Primary Impression: Syncope Syncope type: unspecified Qualified Codes: R55 - Syncope and collapse Additional Impressions: Anemia Anemia type: unspecified type Qualified Codes: D64.9 - Anemia, unspecified
[2017-07-17] MEDS ORDERED: OPTIRAY 320 IV PRN (19:15)
[2017-07-17] MEDS ORDERED: SODIUM CHLORIDE 0.9% 500ML 500 ML IV STA (19:32)
[2017-07-17 19:36] LABS: BASO % 0.1 %; BASO ABS # 0.01 K/uL (0-0.2); EOS % 0.4 %; HEMATOCRIT 27.3 % (37-47); IG% 0.1 %; LYMPH % 21.4 %; LYMPH ABS # 1.65 K/uL (1.2-3.4); MEAN CELL VOLUME 101.5 fL (80-100); MEAN CORPUSCULAR HGB CONC 31.5 g/dl (32-36); MEAN PLATELET VOLUME 9.4 fL (7.4-10.4); PLATELET COUNT 185 K/uL (130-400); RED BLOOD COUNT 2.69 M/uL (4.2-5.4); WHITE BLOOD COUNT 7.72 K/uL (4.8-10.8)
[2017-07-17 19:40] LABS: ISTAT CREATININE 1.9 mg/dl (0.6-1.3); ISTAT HEMOGLOBIN 8.5 g/dl (12.0-16.0); ISTAT IONIZED CALCIUM 1.12 mmol/l (1.12-1.32)
[2017-07-17 19:57] LABS: ALT/SGPT 29 U/L (12-78); BLOOD UREA NITROGEN 42 mg/dl (7-18); BUN/CREATININE RATIO 23.4 (10-20); CALCIUM 8.6 mg/dl (8.5-10.1); CARBON DIOXIDE 28 mmol/L (21-32); CHLORIDE 101 mmol/L (98-107); CREATININE 1.79 mg/dl (0.60-1.20); GLUCOSE 109 mg/dl (70-99); POTASSIUM 4.6 mmol/L (3.5-5.1); SODIUM 135 mmol/L (136-145)
[2017-07-17 20:08] LABS: ALKALINE PHOSPHATASE 61 U/L (45-117); AST/SGOT 18 U/L (15-37); CKMB/CK RATIO 2.1 (0-3.0)
[2017-07-17 20:11] LABS: COMPLETE YES; OVALOCYTES 1+; SCHISTOCYTES 1+
--- NOTE | 2017-07-17 20:59 | DIAGNOSTIC IMAGING REPORT ---
CHEST CTA for PULMONARY ARTERIES CT DOSE: HISTORY: Atypical chest pain. TECHNIQUE: Multiaxial CT images of the chest were performed following the intravenous administration of contrast to evaluate the pulmonary arteries. Maximal intensity projection images were also obtained. A dose lowering technique was utilized adhering to the principles of ALARA. COMPARISON STUDY: None. FINDINGS: Multiple old, healed bilateral rib fractures. No acute fractures identified. The central airways are patent. No pneumothorax. Mild interstitial thickening at the lung bases. This is likely chronic. Small focal density at the right lower lobe posteriorly may represent atelectasis. Calcified mediastinal lymph nodes. No hilar or mediastinal lymphadenopathy. The heart is mildly enlarged. No pleural effusions. Normal caliber thoracic aorta. No evidence for dissection within the ascending aorta or aortic arch. Inadequate contrast opacification within the descending thoracic aorta to assess for a dissection. No filling defects within the pulmonary arteries to suggest pulmonary embolus. IMPRESSION: 1. No evidence for pulmonary embolus. 2. Mild cardiomegaly. 3. Small focal density within the right lower lobe posteriorly. This favors atelectasis. However, a small pneumonia could also have a similar appearance. Electronically signed by: Cal Griggs M.D. 07/17/2017 8:58 PM Dictated Date/Time: 07/17/2017 8:47 PM
--- NOTE | 2017-07-17 21:09 | DIAGNOSTIC IMAGING REPORT ---
ABDOMEN AND PELVIS CT WITH IV CONTRAST CT DOSE: 1606.85 mGy.cm HISTORY: Recent trauma. Pt anemic TECHNIQUE: Multiaxial CT images of the abdomen and pelvis were performed following the use of intravenous contrast. A dose lowering technique was utilized adhering to the principles of ALARA. COMPARISON STUDY: None. FINDINGS: No pneumoperitoneum. No pneumatosis. There is a left total hip prosthesis. Old distal sacral fracture. Mild superior endplate compression deformity at L1. This is also likely old. No acute fractures within the visualized osseous structures. There is a large left lateral abdominal wall hernia which contains multiple loops of small large bowel. There is associated atrophy of the left lateral abdominal wall musculature. There is a right gluteal/flank subcutaneous hematoma which measures approximately 15 x 14 x 10 cm. No evidence for retroperitoneal hematoma. A 6 mm hypodense lesion within the right hepatic lobe which is too small to characterize. Otherwise, the liver, gallbladder, pancreas, and adrenal glands are unremarkable. There is a 9 mm hypodense lesion within the spleen which is also too small to characterize. No hydronephrosis. A 2.5 cm cyst within the left kidney. A few indeterminate subcentimeter hypodense lesions within the right kidney. Moderate calcified plaque within the normal caliber abdominal aorta. Mild bladder wall thickening. Hysterectomy. No bowel wall thickening or obstruction. IMPRESSION: 1. Large right flank/gluteal subcutaneous hematoma measuring 15 x 14 x 10 cm. 2. No evidence for a retroperitoneal hematoma. 3. Large left lateral abdominal wall hernia containing multiple loops of large and small bowel. No evidence for bowel obstruction. 4. Multiple old fractures as described above. No acute fractures identified. Electronically signed by: Cal Griggs M.D. 07/17/2017 9:07 PM Dictated Date/Time: 07/17/2017 8:58 PM
--- NOTE | 2017-07-17 21:16 | DIAGNOSTIC IMAGING REPORT ---
HEAD CT NONCONTRAST CT DOSE: HISTORY: Pt multiple syncopal episodes today, hit head TECHNIQUE: Multiaxial CT images of the head were performed without the use of intravenous contrast. Automated exposure control was utilized for this study. A dose lowering technique was utilized adhering to the principles of ALARA. Comparison: Head CT 07/17/2017. Findings: The paranasal sinuses and mastoid air cells are clear. The calvarium and skull base are intact. There is no mass, hematoma, midline shift, acute infarct. White matter hypodensity is nonspecific but suggestive of moderate microvascular ischemic change. The ventricles and sulci demonstrate moderate age-related involutional changes. Impression: No significant change compared to the prior study. No acute intracranial abnormality. Electronically signed by: Cal Griggs M.D. 07/17/2017 9:15 PM Dictated Date/Time: 07/17/2017 9:11 PM
[2017-07-17] MEDS ORDERED: ACETAMINOPHEN 325 MG TAB PO PRN (22:15)
[2017-07-17] MEDS ORDERED: ONDANSETRON INJ 2 MG/ML 2 ML VIAL IV PRN (22:15)
--- NOTE | 2017-07-17 23:02 | History and Physical ---
History & Physical Date & Time of Service: Jul 17, 2017 ~ 21:45 Chief Complaint: Low Blood Pressure Primary Care Physician: Be Ayers D.O. History of Present Illness 77 year old female who presents to the ED with frequent falls, low blood pressure, and possible syncope. She reports she has difficulty with urinary frequency and often rushes to go to the bathroom. She has history of frequent falls. Patient reports she woke up early this morning and had to go to the bathroom. She reports she was trying to stand from the toilet when her right arm slipped off the hand rail and she fell to the ground hitting her right hip, right elbow, and head. Patient reports she called for help. She remembers the event and does not believe she passed out. She was helped back to her bed where she went back to sleep. Patient reports she got up to go to the bathroom again and suffered another fall. There is question of a syncopal event however again patient does not feel she passed out. I attempted to call [facility] however staff was not available to provide history of events this morning. Patient was seen in the ED earlier in the day for the aforementioned complaints. Imaging was negative for acute findings and patient was discharged back to [facility]. Patient reports she had a persistently low blood pressure since arriving back and the physician there referred her to back to the ED. Patient denies associated shortness of breath or chest pain. She denies any preceding lightheadedness or dizziness. Reports she otherwise has been feeling well recently. No abdominal pain, nausea, vomiting, or diarrhea. She denies fever and chills. She has chronic urinary frequency and urgency which is unchanged. In the ED, patient's hgb is found to be 8.5, orthostatic BPs are also positive. On exam and on imaging, patient is found to have a large hematoma over the right hip. Past Medical/Surgical History Medical Problems: (1) A-fib Status: Chronic (2) CKD (chronic kidney disease), stage III Status: Chronic (3) CVA (cerebral vascular accident) Status: Chronic (4) Depression Status: Chronic (5) Gout Status: Chronic (6) HTN (hypertension) Status: Chronic Surgical Problems: (1) History of hemiarthroplasty of left hip Status: Chronic (2) History of hernia repair Status: Chronic (3) History of hysterectomy Status: Chronic Family History non contributory due to patient's age Social History Smoking Status: Former Smoker Alcohol Use: none Allergies Coded Allergies: Ciprofloxacin (Verified Allergy, Unknown, unknown, 07/17/17) Clindamycin (Verified Allergy, Unknown, unknown, 07/17/17) Lisinopril (Verified Allergy, Unknown, unknown, 07/17/17) Home Medications Scheduled Acetaminophen (Tylenol), 650 MG PO TID Allopurinol (Zyloprim), 100 MG PO DAILY Aspirin (Aspirin Ec), 81 MG PO DAILY Cetirizine Hcl (Qc All Day Allergy), 5 MG PO DAILY Cholecalciferol (Vitamin D), 2,000 UNIT PO DAILY Citalopram Hydrobromide (Citalopram Hydrobromide), 40 MG PO DAILY Clopidogrel (Plavix), 75 MG PO DAILY Cyanocobalamin (Vitamin B12), 1,000 MCG PO DAILY Diclofenac Sodium (Topical) (Diclofenac Sodium), 1 APPLN TOP BID Ferrous Gluconate (Ferrous Gluconate), 324 MG PO BID17 Folic Acid (Folic Acid), 1 MG PO Q2D Metoprolol Succinate (Toprol Xl), 50 MG PO BID Oxybutynin Chloride (Oxybutynin Chloride), 1 TAB PO TID Pantoprazole (Protonix), 40 MG PO QAM Polyethylene Glycol-Propylene (Systane Ultra), 2 DROPS OPB BID Senna (Senokot), 1 TAB PO HS Simvastatin (Zocor), 20 MG PO QPM Scheduled PRN Ibuprofen (Advil), 200-400 MG PO Q6H PRN for Pain Review of Systems ROS per HPI, all other systems reviewed and negative Physical Exam Vital Signs Date Time Temp Pulse Resp B/P (MAP) Pulse Ox O2 Delivery O2 Flow Rate FiO2 07/17/17 22:16 86 18 162/90 99 Room Air 07/17/17 21:22 85 18 142/71 99 Room Air 07/17/17 20:51 93 18 179/87 99 Room Air 95 168/108 111 116/63 07/17/17 19:45 83 18 113/72 98 Room Air 07/17/17 19:27 96 Room Air 07/17/17 18:57 93 07/17/17 18:43 36.8 86 18 126/94 97 Room Air General Appearance: WD/WN, no apparent distress Head: normocephalic, + evidence of trama (echymosis over the right orbital ridge ) Eyes: normal inspection, EOMI, sclerae normal ENT: hearing grossly normal, + pertinent finding (mucous membranes moist) Neck: supple, no JVD, trachea midline Respiratory/Chest: lungs clear, normal breath sounds, no respiratory distress Cardiovascular: normal peripheral pulses, + irregularly irregular (rate controlled), + pertinent finding (trace edema BLLE) Abdomen/GI: normal bowel sounds, non tender, soft, no organomegaly Extremities/Musculoskelatal: no calf tenderness, normal capillary refill, + pertinent finding (sigfniciant hematoma/edema noted over right hip extending into the right buttocks; edema and ecchymosis noted over right elbow) Neurologic/Psych: no motor/sensory deficits, alert, normal mood/affect, oriented x 3 Skin: warm/dry, + pertinent finding (scattered bruising noted over BLUE in various stages of healing) Diagnostics Laboratory Results Results Past 24 Hours Test 07/17/17 19:16 07/17/17 19:25 07/17/17 19:27 Range/Units Bedside Glucose 139 70-90 mg/dl White Blood Count 7.72 4.8-10.8 K/uL Red Blood Count 2.69 4.2-5.4 M/uL Hemoglobin 8.6 12.0-16.0 g/dL Hematocrit 27.3 37-47 % Mean Corpuscular Volume 101.5 80-100 fL Mean Corpuscular Hemoglobin 32.0 25-34 pg Mean Corpuscular Hemoglobin Concent 31.5 32-36 g/dl Platelet Count 185 130-400 K/uL Mean Platelet Volume 9.4 7.4-10.4 fL Neutrophils (%) (Auto) 71.0 % Lymphocytes (%) (Auto) 21.4 % Monocytes (%) (Auto) 7.0 % Eosinophils (%) (Auto) 0.4 % Basophils (%) (Auto) 0.1 % Neutrophils # (Auto) 5.48 1.4-6.5 K/uL Lymphocytes # (Auto) 1.65 1.2-3.4 K/uL Monocytes # (Auto) 0.54 0.11-0.59 K/uL Eosinophils # (Auto) 0.03 0-0.5 K/uL Basophils # (Auto) 0.01 0-0.2 K/uL RDW Standard Deviation 61.2 36.4-46.3 fL RDW Coefficient of Variation 16.5 11.5-14.5 % Immature Granulocyte % (Auto) 0.1 % Immature Granulocyte # (Auto) 0.01 0.00-0.02 K/uL Ovalocytes 1+ Schistocytes 1+ Bedside D-Dimer > 450 0-450 ng/mlFEU Sodium Level 135 136-145 mmol/L Potassium Level 4.6 3.5-5.1 mmol/L Chloride Level 101 98-107 mmol/L Carbon Dioxide Level 28 21-32 mmol/L Anion Gap 6.0 17.0 16-25 mmol/L Blood Urea Nitrogen 42 7-18 mg/dl Creatinine 1.79 0.60-1.20 mg/dl Est Creatinine Clear Calc Drug Dose 21.9 ml/min Estimated GFR () 30.7 Estimated GFR (Non- 26.5 BUN/Creatinine Ratio 23.4 10-20 Random Glucose 109 70-99 mg/dl Calcium Level 8.6 8.5-10.1 mg/dl Total Bilirubin 0.7 0.2-1 mg/dl Direct Bilirubin 0.2 0-0.2 mg/dl Aspartate Amino Transf (AST/SGOT) 18 15-37 U/L Alanine Aminotransferase (ALT/SGPT) 29 12-78 U/L Alkaline Phosphatase 61 45-117 U/L Total Creatine Kinase 62 26-192 U/L Creatine Kinase MB 1.3 0.5-3.6 ng/ml Creatine Kinase MB Ratio 2.1 0-3.0 Troponin I < 0.015 0-0.045 ng/ml Total Protein 6.9 6.4-8.2 gm/dl Albumin 3.6 3.4-5.0 gm/dl Thyroid Stimulating Hormone (TSH) 3.700 0.300-4.500 uIu/ml Bedside Hemoglobin 8.5 12.0-16.0 g/dl Bedside Hematocrit 25 37-47 % Bedside Sodium 136 135-144 mEq/L Bedside Potassium 4.7 3.3-5.0 mEq/L Bedside Chloride 99 101-112 mEq/L Bedside Total CO2 26 24-31 mEq/l Bedside Blood Urea Nitrogen 39 7-18 mg/dl Bedside Creatinine 1.9 0.6-1.3 mg/dl Bedside Glucose (other) 110 70-99 mg/dl Bedside Ionized Calcium (Sharla) 1.12 1.12-1.32 mmol/l Microbiology Results 07/17/17 Urine Culture, Ordered Pending Diagnostic Radiology CT Head Impression: No significant change compared to the prior study. No acute intracranial abnormality. CTA CHEST IMPRESSION: 1. No evidence for pulmonary embolus. 2. Mild cardiomegaly. 3. Small focal density within the right lower lobe posteriorly. This favors atelectasis. However, a small pneumonia could also have a similar appearance. CT ABD/PELVIS IMPRESSION: 1. Large right flank/gluteal subcutaneous hematoma measuring 15 x 14 x 10 cm. 2. No evidence for a retroperitoneal hematoma. 3. Large left lateral abdominal wall hernia containing multiple loops of large and small bowel. No evidence for bowel obstruction. 4. Multiple old fractures as described above. No acute fractures identified. Impression Assessment and Plan FALL, RIGHT HIP HEMATOMA POSSIBLE SYNCOPE ANEMIA - admit to tele - patient presenting from [facility] with falls x 2 today, possible syncope ( staff unavailable at [facility] to give history) - found to have significant right hip hematoma with hgb 8.5; positive orthostatics - if patient did pass out, likely due to orthostasis from volume depletion from blood loss; noted negative troponin, EKG without acute ST changes, no reports of chest pain - baseline hgb ~ 11.0 - serial H/H, transfuse PRN - hold ASA and Plavix - check U/A for fall work up - imaging preformed in ED earlier today and current visit negative for fractures - PT/OT CKD STAGE III - creat from 2016 ~ 1.0, labs from this month have been running in the mid 1's - creat 1.7 today - will place on IVF - monitor renal functions ATRIAL FIBRILLATION - rate controlled on metoprolol, will continue - not anticoagulated due to frequent falls HX CVA - holding ASA and Plavix due to hematoma - continue statin GOUT - continue allopurinol DVT PROPHYLAXIS - SCDs due to hematoma CODE STATUS - Patient is a full code as per my discussion with her. DISPO - In my clinical judgment this beneficiary meets acute admission criteria, established by [facility], that includes being hospitalized through two midnights. - PT/OT, case management consults; currently at [facility], may need higher level of care at discharge VTE Prophylaxis VTE Risk Assessment Done? Y/N: Yes Risk Level: Moderate Note ATTENDING ADDENDUM Record reviewed. Patient interviewed and examined. Care coordinated with RAMÓN Loomis. Please refer to her documentation for patient's history. Briefly, 77 YO female with history of chronic AF, hypertension, and other problems who resides at [facility]. Referred to ED because of multiple falls and possible syncope. EXAM: General- no acute distress VS- as noted HEENT- right periorbital ecchymosis; anicteric Neck- supple; no JVD Lungs- clear Heart- irregular, no gallop Abdomen- + BS, soft, nontender Back- ecchymoses Extremities- ecchymoses RUE; large hematoma proximal right thigh Neuro- alert, oriented x3, mild confusion DATA: Hgb 8.6, plts 185,000. PT 10.5, INR 1.0, PTT 22.7 earlier today. BUN 42, creatinine 1.79. Other lab studies as noted. ASSESSMENT AND PLAN: ACUTE BLOOD LOSS ANEMIA Hgb 11.1 06/30/17 --> 9.9 this morning --> 8.6 this evening. Acute blood loss anemia secondary to hematomas right flank / buttock / thigh. Hold antiplatelet meds. Follow H/H. Transfuse per guidelines. FALLS Multiple ecchymoses and hematomas right flank / buttock / thigh, but no apparent acute fractures per imaging. CT head neg this morning and again this evening. Falls may be secondary to generalized weakness from UTI. PT / OT evals. SUSPECTED UTI UA shows leukocyte esterase, WBC's, bacteria. Does not appear to be septic. Rx with ceftriaxone pending culture results. URINARY RETENTION Postvoid residual > 200 ml per US. Stop oxybutynin. CHRONIC AF Rate controlled. Not anticoagulated due to falls in past. Continue metoprolol. CEREBROVASCULAR DISEASE History of stroke. Chronic AF; not anticoagulated due to fall risk. No apparent new events per CT head x 2 today. Need to hold aspirin and clopidogrel due to falls and large hematomas. Please refer to ELIDIA Marvin's documentation for discussion of other issues. Sarabjit Osborn MD .
[2017-07-17] MEDS ORDERED: PNEUMOCOCCAL ADMINISTRATION CHARGE ONE (23:45)
[2017-07-17] MEDS ORDERED: PNEUMOCOCCAL POLYSACCHARIDES 25 MCG/0.5 ML VIAL/SYR IM. ONE (23:45)
[2017-07-17 23:49] VITALS: BP 168/89; PULSE 93; TEMP 36.9; O2SAT 95; Ht 162.6 cm; Wt 62.7 kg
[2017-07-18] VITALS (10 sets, daily range): BP systolic 90–138; BP diastolic 58–94; PULSE 82–142; TEMP 36.5–37.1; O2SAT 94–99
[2017-07-18] MEDS: SODIUM CHLORIDE 0.9% 1000ML 1,000 ML IV SCH ×2 (00:05→13:33)
[2017-07-18 00:28] LABS: URINE APPEARANCE TURBID (CLEAR); URINE BILIRUBIN NEG (NEG); URINE COLOR YELLOW; URINE NITRITE NEG (NEG); URINE PH 5.5 (4.5-7.5); URINE SPECIFIC GRAVITY 1.031 (1.000-1.030); UROBILINOGEN NEG (NEG)
[2017-07-18 00:29] LABS: MANUAL MICROSCOPIC REQUIRED? NO; REVIEW REQ? NO
[2017-07-18] MEDS: CEFTRIAXONE SOD INJ 1 GM in DEXTROSE 5% ADD-VANTAGE 50ML 50 ML IV SCH (01:24)
[2017-07-18 02:12] LABS: HEMATOCRIT 26.5 % (37-47)
[2017-07-18 07:46] LABS: HEMATOCRIT 26.5 % (37-47); MEAN CELL VOLUME 102.3 fL (80-100); MEAN CORPUSCULAR HEMOGLOBIN 32.8 pg (25-34); MEAN CORPUSCULAR HGB CONC 32.1 g/dl (32-36); MEAN PLATELET VOLUME 9.1 fL (7.4-10.4); PLATELET COUNT 165 K/uL (130-400); RED BLOOD COUNT 2.59 M/uL (4.2-5.4); WHITE BLOOD COUNT 6.35 K/uL (4.8-10.8)
[2017-07-18 08:19] LABS: BUN/CREATININE RATIO 25.9 (10-20); CALCIUM 8.5 mg/dl (8.5-10.1); CREATININE 1.51 mg/dl (0.60-1.20); POTASSIUM 4.2 mmol/L (3.5-5.1)
[2017-07-18] MEDS: CHOLECALCIFEROL 1000 INTER.UNIT TAB PO SCH (08:32)
[2017-07-18] MEDS: PANTOprazole SOD 40 MG TAB PO SCH (08:32)
[2017-07-18] MEDS: METOPROLOL SUCC 50MG EXT REL TAB PO SCH ×3 (08:33→20:30)
[2017-07-18] MEDS: CETIRIZINE HCL 10 MG TAB PO SCH (08:33)
[2017-07-18] MEDS: FERROUS GLUCONATE 324 MG TAB PO SCH ×2 (08:34→16:51)
[2017-07-18] MEDS: CYANOCOBALAMIN 500 MCG TAB (VIT B-12) PO SCH (08:34)
[2017-07-18] MEDS: CITALOPRAM 40 MG TAB PO SCH (08:34)
[2017-07-18] MEDS: ALLOPURINOL 100 MG TAB PO SCH (08:35)
[2017-07-18] MEDS ORDERED: OXYBUTYNIN CHLORIDE 5 MG TAB PO SCH (09:00)
[2017-07-18] MEDS: ARTIFICIAL TEARS OP SOLN OPB SCH ×4 (09:15→20:31)
--- NOTE | 2017-07-18 16:03 | Progress Note ---
Internal Med Progress Note Date of Service: Jul 18, 2017. Provider Documentation: SUBJECTIVE: Seen and examined at bedside States feeling well Pain at the site of hematoma resolved Denies Urinary symptoms Eager to get discharged Denies any chest pain, SOB, abd pain, dizziness No other complaints OBJECTIVE: Vital Signs-as noted below Physical Exam: General Appearance:Moderately built and nourished, no apparent distress Head: normocephalic, Atraumatic Eyes: normal inspection, EOMI, PERRL Neck: supple, Trachea midline Respiratory/Chest: Decreased breath sounds, CTA Cardiovascular: Irregularly Irregular, No murmur Abdomen/GI:Soft, Non tender, Bowel sounds present +Large abdominal hernia Extremities/Musculoskelatal:normal inspection, no edema, + Hematoma on RUE and RLE Neurologic/Psych:grossly no focal neurological deficits, ecchymosis noted on right orbital region Skin: normal color, warm Lab data as noted below. ASSESSMENT & PLAN: Acute Blood loss Anemia Secondary to Right hip hematoma from fall Possible Syncope from Orthostatic hypotension Hb dropped to 8.4 from Last known Hb 11.1 Positive orthostatics Fall precautions Monitor Hb IV fluids Transfuse PRBCs PRN Held ASA, Plavix PT/OT compression stockings Abnormal UA: Possible UTI Denies Urinary symptoms Continue IV ceftriaxone Urine culture:pending CKD III Cr at baseline monitor renal functions Atrial Fibrillation: Continue metoprolol for rate control Not a candidate for anticoagulated due to frequent falls H/O CVA hold ASA and Plavix due to hematoma continue statin Urinary Retention: Postvoid residual > 200 ml oxybutynin discontinued Gout continue allopurinol DVT Px: SCDs due to hematoma Code Status: full code Disposition: To be determined PROCEDURES: CT Head: No significant change compared to the prior study. No acute intracranial abnormality. CTA: 1. No evidence for pulmonary embolus. 2. Mild cardiomegaly. 3. Small focal density within the right lower lobe posteriorly. This favors atelectasis. However, a small pneumonia could also have a similar appearance. CT ABD: 1. Large right flank/gluteal subcutaneous hematoma measuring 15 x 14 x 10 cm. 2. No evidence for a retroperitoneal hematoma. 3. Large left lateral abdominal wall hernia containing multiple loops of large and small bowel. No evidence for bowel obstruction. 4. Multiple old fractures as described above. No acute fractures identified. Vital Signs: Date Time Temp Pulse Resp B/P (MAP) Pulse Ox O2 Delivery O2 Flow Rate FiO2 07/18/17 11:32 95 Room Air 07/18/17 10:46 36.8 97 18 127/84 (98) 95 07/18/17 08:27 36.9 93 20 113/73 (86) 94 132 108/72 (84) 142 90/58 (69) 07/18/17 08:01 Room Air 07/18/17 07:55 36.9 91 20 117/66 (83) 99 07/18/17 04:47 36.5 82 16 138/94 (109) 97 Room Air 07/18/17 04:00 Room Air 07/18/17 00:00 Room Air 07/17/17 23:49 36.9 93 18 168/89 95 Room Air 07/17/17 22:44 83 18 166/96 99 Room Air 07/17/17 22:16 86 18 162/90 99 Room Air 07/17/17 21:22 85 18 142/71 99 Room Air 07/17/17 20:51 93 18 179/87 99 Room Air 95 168/108 111 116/63 07/17/17 19:45 83 18 113/72 98 Room Air 07/17/17 19:27 96 Room Air 07/17/17 18:57 93 07/17/17 18:43 36.8 86 18 126/94 97 Room Air Lab Results: Results Past 24 Hours Test 07/17/17 19:16 07/17/17 19:25 07/17/17 19:27 07/18/17 00:10 Range/Units Bedside Glucose 139 70-90 mg/dl White Blood Count 7.72 4.8-10.8 K/uL Red Blood Count 2.69 4.2-5.4 M/uL Hemoglobin 8.6 12.0-16.0 g/dL Hematocrit 27.3 37-47 % Mean Corpuscular Volume 101.5 80-100 fL Mean Corpuscular Hemoglobin 32.0 25-34 pg Mean Corpuscular Hemoglobin Concent 31.5 32-36 g/dl Platelet Count 185 130-400 K/uL Mean Platelet Volume 9.4 7.4-10.4 fL Neutrophils (%) (Auto) 71.0 % Lymphocytes (%) (Auto) 21.4 % Monocytes (%) (Auto) 7.0 % Eosinophils (%) (Auto) 0.4 % Basophils (%) (Auto) 0.1 % Neutrophils # (Auto) 5.48 1.4-6.5 K/uL Lymphocytes # (Auto) 1.65 1.2-3.4 K/uL Monocytes # (Auto) 0.54 0.11-0.59 K/uL Eosinophils # (Auto) 0.03 0-0.5 K/uL Basophils # (Auto) 0.01 0-0.2 K/uL RDW Standard Deviation 61.2 36.4-46.3 fL RDW Coefficient of Variation 16.5 11.5-14.5 % Immature Granulocyte % (Auto) 0.1 % Immature Granulocyte # (Auto) 0.01 0.00-0.02 K/uL Ovalocytes 1+ Schistocytes 1+ Bedside D-Dimer > 450 0-450 ng/mlFEU Sodium Level 135 136-145 mmol/L Potassium Level 4.6 3.5-5.1 mmol/L Chloride Level 101 98-107 mmol/L Carbon Dioxide Level 28 21-32 mmol/L Anion Gap 6.0 17.0 16-25 mmol/L Blood Urea Nitrogen 42 7-18 mg/dl Creatinine 1.79 0.60-1.20 mg/dl Est Creatinine Clear Calc Drug Dose 21.9 ml/min Estimated GFR () 30.7 Estimated GFR (Non- 26.5 BUN/Creatinine Ratio 23.4 10-20 Random Glucose 109 70-99 mg/dl Calcium Level 8.6 8.5-10.1 mg/dl Total Bilirubin 0.7 0.2-1 mg/dl Direct Bilirubin 0.2 0-0.2 mg/dl Aspartate Amino Transf (AST/SGOT) 18 15-37 U/L Alanine Aminotransferase (ALT/SGPT) 29 12-78 U/L Alkaline Phosphatase 61 45-117 U/L Total Creatine Kinase 62 26-192 U/L Creatine Kinase MB 1.3 0.5-3.6 ng/ml Creatine Kinase MB Ratio 2.1 0-3.0 Troponin I < 0.015 0-0.045 ng/ml Total Protein 6.9 6.4-8.2 gm/dl Albumin 3.6 3.4-5.0 gm/dl Thyroid Stimulating Hormone (TSH) 3.700 0.300-4.500 uIu/ml Bedside Hemoglobin 8.5 12.0-16.0 g/dl Bedside Hematocrit 25 37-47 % Bedside Sodium 136 135-144 mEq/L Bedside Potassium 4.7 3.3-5.0 mEq/L Bedside Chloride 99 101-112 mEq/L Bedside Total CO2 26 24-31 mEq/l Bedside Blood Urea Nitrogen 39 7-18 mg/dl Bedside Creatinine 1.9 0.6-1.3 mg/dl Bedside Glucose (other) 110 70-99 mg/dl Bedside Ionized Calcium (Sharla) 1.12 1.12-1.32 mmol/l Urine Color YELLOW Urine Appearance TURBID CLEAR Urine pH 5.5 4.5-7.5 Urine Specific [place] 1.031 1.000-1.030 Urine Protein TRACE NEG Urine Glucose (UA) NEG NEG Urine Ketones NEG NEG Urine Occult Blood 1+ NEG Urine Nitrite NEG NEG Urine Bilirubin NEG NEG Urine Urobilinogen NEG NEG Urine Leukocyte Esterase LARGE NEG Urine WBC (Auto) >30 0-5 /hpf Urine RBC (Auto) 10-30 0-4 /hpf Urine Hyaline Casts (Auto) 0 0-5 /lpf Urine Epithelial Cells (Auto) 5-10 0-5 /lpf Urine Bacteria (Auto) 4+ NEG Test 07/18/17 01:59 07/18/17 07:28 Range/Units Hemoglobin 8.4 8.5 12.0-16.0 g/dL Hematocrit 26.5 26.5 37-47 % White Blood Count 6.35 4.8-10.8 K/uL Red Blood Count 2.59 4.2-5.4 M/uL Mean Corpuscular Volume 102.3 80-100 fL Mean Corpuscular Hemoglobin 32.8 25-34 pg Mean Corpuscular Hemoglobin Concent 32.1 32-36 g/dl RDW Standard Deviation 62.3 36.4-46.3 fL RDW Coefficient of Variation 17.0 11.5-14.5 % Platelet Count 165 130-400 K/uL Mean Platelet Volume 9.1 7.4-10.4 fL Sodium Level 137 136-145 mmol/L Potassium Level 4.2 3.5-5.1 mmol/L Chloride Level 104 98-107 mmol/L Carbon Dioxide Level 25 21-32 mmol/L Anion Gap 8.0 3-11 mmol/L Blood Urea Nitrogen 39 7-18 mg/dl Creatinine 1.51 0.60-1.20 mg/dl Est Creatinine Clear Calc Drug Dose 25.5 ml/min Estimated GFR () 37.7 Estimated GFR (Non- 32.5 BUN/Creatinine Ratio 25.9 10-20 Random Glucose 93 70-99 mg/dl Calcium Level 8.5 8.5-10.1 mg/dl Microbiology Results 07/17/17 MRSA DNA Surveillance Screen - Final, Complete Specimen Negative for MRSA by DNA Probe
[2017-07-18 18:16] LABS: HEMATOCRIT 24.6 % (37-47)
[2017-07-18] MEDS: SIMVASTATIN 20 MG TAB PO SCH (20:30)
[2017-07-18] MEDS: SENNA 8.6 MG TAB PO SCH (20:31)
[2017-07-19] VITALS (11 sets, daily range): BP systolic 111–173; BP diastolic 67–93; PULSE 72–90; TEMP 36.7–37.2; O2SAT 92–96
[2017-07-19] MEDS: CEFTRIAXONE SOD INJ 1 GM in DEXTROSE 5% ADD-VANTAGE 50ML 50 ML IV SCH (01:08)
[2017-07-19] MEDS: SODIUM CHLORIDE 0.9% 1000ML 1,000 ML IV SCH (04:25)
[2017-07-19 06:17] LABS: HEMATOCRIT 23.4 % (37-47); MEAN CELL VOLUME 102.6 fL (80-100); MEAN CORPUSCULAR HEMOGLOBIN 32.9 pg (25-34); MEAN CORPUSCULAR HGB CONC 32.1 g/dl (32-36); MEAN PLATELET VOLUME 8.7 fL (7.4-10.4); PLATELET COUNT 140 K/uL (130-400); RED BLOOD COUNT 2.28 M/uL (4.2-5.4); WHITE BLOOD COUNT 4.92 K/uL (4.8-10.8)
[2017-07-19 06:55] LABS: CALCIUM 8.3 mg/dl (8.5-10.1); CREATININE 1.21 mg/dl (0.60-1.20); POTASSIUM 3.9 mmol/L (3.5-5.1)
[2017-07-19] MEDS: CHOLECALCIFEROL 1000 INTER.UNIT TAB PO SCH (08:15)
[2017-07-19] MEDS: CITALOPRAM 40 MG TAB PO SCH (08:15)
[2017-07-19] MEDS: ALLOPURINOL 100 MG TAB PO SCH (08:15)
[2017-07-19] MEDS: CYANOCOBALAMIN 500 MCG TAB (VIT B-12) PO SCH (08:15)
[2017-07-19] MEDS: CETIRIZINE HCL 10 MG TAB PO SCH (08:17)
[2017-07-19] MEDS: FERROUS GLUCONATE 324 MG TAB PO SCH ×2 (08:18→17:07)
[2017-07-19] MEDS: PANTOprazole SOD 40 MG TAB PO SCH (08:18)
[2017-07-19] MEDS: METOPROLOL SUCC 50MG EXT REL TAB PO SCH ×2 (08:18→20:52)
[2017-07-19] MEDS: ARTIFICIAL TEARS OP SOLN OPB SCH ×4 (08:19→20:52)
--- NOTE | 2017-07-19 14:26 | Progress Note ---
Internal Med Progress Note Date of Service: Jul 19, 2017. Provider Documentation: SUBJECTIVE: Seen and examined at bedside Doing well leg pain resolved Denies Urinary symptoms Eager to get discharged Denies any chest pain, SOB, abd pain, dizziness Hb:7.5 today OBJECTIVE: Vital Signs-as noted below Physical Exam: General Appearance:Moderately built and nourished, no apparent distress Head: normocephalic, Atraumatic Eyes: normal inspection, EOMI, PERRL Neck: supple, Trachea midline Respiratory/Chest: Decreased breath sounds, CTA Cardiovascular: Irregularly Irregular, No murmur Abdomen/GI:Soft, Non tender, Bowel sounds present +Large abdominal hernia Extremities/Musculoskelatal:normal inspection, no edema, + Hematoma on RUE and RLE Neurologic/Psych:grossly no focal neurological deficits, ecchymosis noted on right orbital region Skin: normal color, warm Lab data as noted below. ASSESSMENT & PLAN: Acute Blood loss Anemia Secondary to Right hip hematoma from fall Possible Syncope from Orthostatic hypotension Hb dropped to 8.4 from Last known Hb 11.1 Positive orthostatics Fall precautions Monitor Hb: 7.5 today DC IV fluids Transfuse PRBCs PRN Held ASA, Plavix PT/OT compression stockings Abnormal UA: Possible UTI Denies Urinary symptoms Continue IV ceftriaxone Urine culture:gram negative bacilli CKD III Cr at baseline monitor renal functions Atrial Fibrillation: Continue metoprolol for rate control Not a candidate for anticoagulated due to frequent falls H/O CVA hold ASA and Plavix due to hematoma continue statin Urinary Retention: Postvoid residual > 200 ml oxybutynin discontinued Gout continue allopurinol DVT Px: SCDs due to hematoma Code Status: full code Disposition: Expect to discharge to [facility] when stable PROCEDURES: CT Head: No significant change compared to the prior study. No acute intracranial abnormality. CTA: 1. No evidence for pulmonary embolus. 2. Mild cardiomegaly. 3. Small focal density within the right lower lobe posteriorly. This favors atelectasis. However, a small pneumonia could also have a similar appearance. CT ABD: 1. Large right flank/gluteal subcutaneous hematoma measuring 15 x 14 x 10 cm. 2. No evidence for a retroperitoneal hematoma. 3. Large left lateral abdominal wall hernia containing multiple loops of large and small bowel. No evidence for bowel obstruction. 4. Multiple old fractures as described above. No acute fractures identified. Vital Signs: Date Time Temp Pulse Resp B/P (MAP) Pulse Ox O2 Delivery O2 Flow Rate FiO2 07/19/17 11:24 36.7 78 18 169/93 (118) 95 Room Air 07/19/17 08:00 93 Room Air 07/19/17 07:49 37.0 76 18 144/85 (104) 93 Room Air 07/19/17 04:00 Room Air 07/19/17 03:40 36.9 18 93 Room Air 07/19/17 03:00 75 118/67 (84) 78 111/75 (87) 90 115/77 (90) 07/19/17 00:00 36.9 81 18 143/78 (99) 96 Room Air 07/19/17 00:00 Room Air 07/18/17 20:22 36.9 83 20 138/85 (102) 96 Room Air 07/18/17 20:00 96 Room Air 07/18/17 16:09 37.1 86 18 134/83 (100) 95 104 128/85 (99) 106 110/74 (86) 07/18/17 16:00 95 Room Air 07/18/17 16:00 95 Room Air Lab Results: Results Past 24 Hours Test 07/18/17 18:05 07/19/17 05:57 Range/Units Hemoglobin 7.9 7.5 12.0-16.0 g/dL Hematocrit 24.6 23.4 37-47 % White Blood Count 4.92 4.8-10.8 K/uL Red Blood Count 2.28 4.2-5.4 M/uL Mean Corpuscular Volume 102.6 80-100 fL Mean Corpuscular Hemoglobin 32.9 25-34 pg Mean Corpuscular Hemoglobin Concent 32.1 32-36 g/dl RDW Standard Deviation 63.4 36.4-46.3 fL RDW Coefficient of Variation 17.0 11.5-14.5 % Platelet Count 140 130-400 K/uL Mean Platelet Volume 8.7 7.4-10.4 fL Sodium Level 137 136-145 mmol/L Potassium Level 3.9 3.5-5.1 mmol/L Chloride Level 107 98-107 mmol/L Carbon Dioxide Level 26 21-32 mmol/L Anion Gap 4.0 3-11 mmol/L Blood Urea Nitrogen 36 7-18 mg/dl Creatinine 1.21 0.60-1.20 mg/dl Est Creatinine Clear Calc Drug Dose 31.8 ml/min Estimated GFR () 49.3 Estimated GFR (Non- 42.5 BUN/Creatinine Ratio 30.0 10-20 Random Glucose 85 70-99 mg/dl Calcium Level 8.3 8.5-10.1 mg/dl Magnesium Level 2.0 1.8-2.4 mg/dl
[2017-07-19 18:21] LABS: HEMATOCRIT 24.3 % (37-47)
[2017-07-19] MEDS: SENNA 8.6 MG TAB PO SCH (20:51)
[2017-07-19] MEDS: SIMVASTATIN 20 MG TAB PO SCH (20:52)
[2017-07-20] MEDS: CEFTRIAXONE SOD INJ 1 GM in DEXTROSE 5% ADD-VANTAGE 50ML 50 ML IV SCH (01:27)
[2017-07-20 04:28] VITALS: BP 160/96; PULSE 72; TEMP 36.7; O2SAT 98
[2017-07-20 06:17] LABS: HEMATOCRIT 24.3 % (37-47); MEAN CELL VOLUME 103.8 fL (80-100); MEAN CORPUSCULAR HEMOGLOBIN 33.3 pg (25-34); MEAN CORPUSCULAR HGB CONC 32.1 g/dl (32-36); MEAN PLATELET VOLUME 9.3 fL (7.4-10.4); PLATELET COUNT 152 K/uL (130-400); RED BLOOD COUNT 2.34 M/uL (4.2-5.4); WHITE BLOOD COUNT 5.42 K/uL (4.8-10.8)
[2017-07-20 06:45] LABS: BUN/CREATININE RATIO 25.1 (10-20); CALCIUM 8.3 mg/dl (8.5-10.1); CREATININE 1.13 mg/dl (0.60-1.20); MAGNESIUM 1.9 mg/dl (1.8-2.4); POTASSIUM 3.8 mmol/L (3.5-5.1)
[2017-07-20 07:27] VITALS: BP_SYST 167; BP_SYST 175; BP_DIAS 91; BP_DIAS 94; PULSE 76; TEMP 36.9; O2SAT 94
[2017-07-20] MEDS: ARTIFICIAL TEARS OP SOLN OPB SCH ×2 (07:29)
[2017-07-20] MEDS: CETIRIZINE HCL 10 MG TAB PO SCH (07:29)
[2017-07-20] MEDS: METOPROLOL SUCC 50MG EXT REL TAB PO SCH (07:30)
[2017-07-20] MEDS: FERROUS GLUCONATE 324 MG TAB PO SCH (07:30)
[2017-07-20] MEDS: PANTOprazole SOD 40 MG TAB PO SCH (07:30)
[2017-07-20] MEDS: ALLOPURINOL 100 MG TAB PO SCH (07:31)
[2017-07-20] MEDS: CHOLECALCIFEROL 1000 INTER.UNIT TAB PO SCH (07:31)
[2017-07-20] MEDS: CYANOCOBALAMIN 500 MCG TAB (VIT B-12) PO SCH (07:32)
[2017-07-20] MEDS: CITALOPRAM 40 MG TAB PO SCH (07:32)
[2017-07-20 11:30] VITALS: BP 175/94; PULSE 76; TEMP 36.9; O2SAT 94
--- NOTE | 2017-07-20 11:43 | Progress Note ---
Internal Med Progress Note Date of Service: Jul 20, 2017. Provider Documentation: SUBJECTIVE: Seen and examined at bedside Eager to get discharged No complaints Feels well Denies any chest pain, SOB, abd pain, dizziness Hb:7.8 today OBJECTIVE: Vital Signs-as noted below Physical Exam: General Appearance:Moderately built and nourished, no apparent distress Head: normocephalic, Atraumatic Eyes: normal inspection, EOMI, PERRL Neck: supple, Trachea midline Respiratory/Chest: Decreased breath sounds, CTA Cardiovascular: Irregularly Irregular, No murmur Abdomen/GI:Soft, Non tender, Bowel sounds present +Large abdominal hernia Extremities/Musculoskelatal:normal inspection, no edema, + Hematoma on RUE and RLE Neurologic/Psych:grossly no focal neurological deficits, ecchymosis noted on right orbital region Skin: normal color, warm Lab data as noted below. ASSESSMENT & PLAN: Acute Blood loss Anemia Secondary to Right hip hematoma from fall Possible Syncope from Orthostatic hypotension Hb dropped to 8.4 from Last known Hb 11.1 Positive orthostatics Fall precautions Monitor Hb: 7.8 today DC IV fluids Transfuse PRBCs PRN Held ASA, Plavix PT/OT compression stockings UTI Denies Urinary symptoms Continue IV ceftriaxone Urine culture:E.coli CKD III Cr at baseline monitor renal functions Atrial Fibrillation: Continue metoprolol for rate control Not a candidate for anticoagulated due to frequent falls H/O CVA hold ASA and Plavix due to hematoma continue statin Urinary Retention: Postvoid residual > 200 ml oxybutynin discontinued Gout continue allopurinol DVT Px: SCDs due to hematoma Code Status: full code Disposition: Plan to discharge back [facility] today Follow up with your Primary Care Physician in 1 week as advised Complete the antibiotic course as advised Seek immediate medical attention if your symptoms reoccur or worsen Hold Aspirin, Plavix for 1 week and restart after discussing with your Primary Care physician PROCEDURES: CT Head: No significant change compared to the prior study. No acute intracranial abnormality. CTA: 1. No evidence for pulmonary embolus. 2. Mild cardiomegaly. 3. Small focal density within the right lower lobe posteriorly. This favors atelectasis. However, a small pneumonia could also have a similar appearance. CT ABD: 1. Large right flank/gluteal subcutaneous hematoma measuring 15 x 14 x 10 cm. 2. No evidence for a retroperitoneal hematoma. 3. Large left lateral abdominal wall hernia containing multiple loops of large and small bowel. No evidence for bowel obstruction. 4. Multiple old fractures as described above. No acute fractures identified. Vital Signs: Date Time Temp Pulse Resp B/P (MAP) Pulse Ox O2 Delivery O2 Flow Rate FiO2 07/20/17 08:46 Room Air 07/20/17 07:27 36.9 76 20 167/91 (116) 94 Room Air 175/94 (121) 07/20/17 04:28 36.7 72 18 160/96 (117) 98 Room Air 07/20/17 04:00 Room Air 07/20/17 00:00 Room Air 07/19/17 23:36 173/92 (119) 07/19/17 20:00 92 Room Air 07/19/17 19:30 37.2 72 18 165/91 (115) 96 Room Air 07/19/17 16:00 92 Room Air 07/19/17 15:08 37.0 72 18 131/80 (97) 92 Room Air Lab Results: Results Past 24 Hours Test 07/19/17 18:09 07/20/17 05:56 Range/Units Hemoglobin 7.8 7.8 12.0-16.0 g/dL Hematocrit 24.3 24.3 37-47 % White Blood Count 5.42 4.8-10.8 K/uL Red Blood Count 2.34 4.2-5.4 M/uL Mean Corpuscular Volume 103.8 80-100 fL Mean Corpuscular Hemoglobin 33.3 25-34 pg Mean Corpuscular Hemoglobin Concent 32.1 32-36 g/dl RDW Standard Deviation 63.6 36.4-46.3 fL RDW Coefficient of Variation 16.9 11.5-14.5 % Platelet Count 152 130-400 K/uL Mean Platelet Volume 9.3 7.4-10.4 fL Sodium Level 138 136-145 mmol/L Potassium Level 3.8 3.5-5.1 mmol/L Chloride Level 105 98-107 mmol/L Carbon Dioxide Level 27 21-32 mmol/L Anion Gap 5.0 3-11 mmol/L Blood Urea Nitrogen 28 7-18 mg/dl Creatinine 1.13 0.60-1.20 mg/dl Est Creatinine Clear Calc Drug Dose 34.2 ml/min Estimated GFR () 53.5 Estimated GFR (Non- 46.2 BUN/Creatinine Ratio 25.1 10-20 Random Glucose 101 70-99 mg/dl Calcium Level 8.3 8.5-10.1 mg/dl Magnesium Level 1.9 1.8-2.4 mg/dl
[2017-07-20] MEDS ORDERED: CEFU1TAB35 PEG (11:50)
--- NOTE | 2017-07-20 11:53 | Discharge Summary ---
Discharge Summary Date of Service Jul 20, 2017. Discharge Summary Admission Date: Jul 17, 2017 at 22:05 Discharge Date: Jul 20, 2017 Discharge Disposition: Home with services Principal Diagnosis: Acute Blood loss anemia, UTI, Fall Procedures: CT head: No significant change compared to the prior study. No acute intracranial abnormality. CTA: 1. No evidence for pulmonary embolus. 2. Mild cardiomegaly. 3. Small focal density within the right lower lobe posteriorly. This favors atelectasis. However, a small pneumonia could also have a similar appearance. CT ABD: 1. Large right flank/gluteal subcutaneous hematoma measuring 15 x 14 x 10 cm. 2. No evidence for a retroperitoneal hematoma. 3. Large left lateral abdominal wall hernia containing multiple loops of large and small bowel. No evidence for bowel obstruction. 4. Multiple old fractures as described above. No acute fractures identified. Consultations: None Pending Studies/Follow-Up: Follow up with your Primary Care Physician in 1 week as advised Complete the antibiotic course as advised Seek immediate medical attention if your symptoms reoccur or worsen Hold Aspirin, Plavix for 1 week and restart after discussing with your Primary Care physician Your Oxybutynin is discontinued secondary to Urinary Retention Medication Reconciliation New Medications: Cefuroxime Axetil (Cefuroxime Axetil) 500 Mg Tab 500 MG PO BID for 4 Days, #8 TABS Continued Medications: Acetaminophen (Tylenol) 325 Mg Tab 650 MG PO TID administration times 0800/1200/1700 Allopurinol (Zyloprim) 100 Mg Tab 100 MG PO DAILY Aspirin (Aspirin Ec) 81 Mg Tab 81 MG PO DAILY Cetirizine Hcl (Qc All Day Allergy) 10 Mg Tab 5 MG PO DAILY for Allergic Reaction Cholecalciferol (Vitamin D) 2,000 Unit Cap 2000 UNIT PO DAILY Citalopram Hydrobromide (Citalopram Hydrobromide) 40 Mg Tab 40 MG PO DAILY Clopidogrel (Plavix) 75 Mg Tab 75 MG PO DAILY Cyanocobalamin (Vitamin B12) 1,000 Mcg Tab 1000 MCG PO DAILY Diclofenac Sodium (Topical) (Diclofenac Sodium) 1 % Gel 1 APPLN TOP BID application for left knee Ferrous Gluconate (Ferrous Gluconate) 324 Mg Tab 324 MG PO BID17 Folic Acid (Folic Acid) 1 Mg Tab 1 MG PO Q2D Metoprolol Succinate (Toprol Xl) 50 Mg Tabcr 50 MG PO BID Pantoprazole (Protonix) 40 Mg Tab 40 MG PO QAM Polyethylene Glycol-Propylene (Systane Ultra) 1 Ariadna Ariadna 2 DROPS OPB BID, 1 Refill Senna (Senokot) 8.6 Mg Tab 1 TAB PO HS hold for loose stools Simvastatin (Zocor) 20 Mg Tab 20 MG PO QPM Discontinued Medications: Ibuprofen (Advil) 200 Mg Tab 200-400 MG PO Q6H PRN for Pain, TAB Oxybutynin Chloride (Oxybutynin Chloride) 5 Mg Tab 1 TAB PO TID for Bladder pain TAKES AT 0800, 1200,1700 Admission Information HPI (per Admitting provider): 77 year old female who presents to the ED with frequent falls, low blood pressure, and possible syncope. She reports she has difficulty with urinary frequency and often rushes to go to the bathroom. She has history of frequent falls. Patient reports she woke up early this morning and had to go to the bathroom. She reports she was trying to stand from the toilet when her right arm slipped off the hand rail and she fell to the ground hitting her right hip, right elbow, and head. Patient reports she called for help. She remembers the event and does not believe she passed out. She was helped back to her bed where she went back to sleep. Patient reports she got up to go to the bathroom again and suffered another fall. There is question of a syncopal event however again patient does not feel she passed out. I attempted to call [facility] however staff was not available to provide history of events this morning. Patient was seen in the ED earlier in the day for the aforementioned complaints. Imaging was negative for acute findings and patient was discharged back to [facility]. Patient reports she had a persistently low blood pressure since arriving back and the physician there referred her to back to the ED. Patient denies associated shortness of breath or chest pain. She denies any preceding lightheadedness or dizziness. Reports she otherwise has been feeling well recently. No abdominal pain, nausea, vomiting, or diarrhea. She denies fever and chills. She has chronic urinary frequency and urgency which is unchanged. In the ED, patient's hgb is found to be 8.5, orthostatic BPs are also positive. On exam and on imaging, patient is found to have a large hematoma over the right hip. Physical Exam (per Admitting): General Appearance: WD/WN, no apparent distress Head: normocephalic, + evidence of trama (echymosis over the right orbital ridge ) Eyes: normal inspection, EOMI, sclerae normal ENT: hearing grossly normal, + pertinent finding (mucous membranes moist) Neck: supple, no JVD, trachea midline Respiratory/Chest: lungs clear, normal breath sounds, no respiratory distress Cardiovascular: normal peripheral pulses, + irregularly irregular (rate controlled), + pertinent finding (trace edema BLLE) Abdomen/GI: normal bowel sounds, non tender, soft, no organomegaly Extremities/Musculoskelatal: no calf tenderness, normal capillary refill, + pertinent finding (sigfniciant hematoma/edema noted over right hip extending into the right buttocks; edema and ecchymosis noted over right elbow) Neurologic/Psych: no motor/sensory deficits, alert, normal mood/affect, oriented x 3 Skin: warm/dry, + pertinent finding (scattered bruising noted over BLUE in various stages of healing) Hospital Course Acute Blood loss Anemia Secondary to Right hip hematoma from fall Possible Syncope from Orthostatic hypotension Hb dropped to 8.4 from Last known Hb 11.1 Positive orthostatics Fall precautions Monitor Hb: 7.8 today DC IV fluids Transfuse PRBCs PRN Held ASA, Plavix PT/OT compression stockings UTI Denies Urinary symptoms Continue IV ceftriaxone Urine culture:E.coli CKD III Cr at baseline monitor renal functions Atrial Fibrillation: Continue metoprolol for rate control Not a candidate for anticoagulated due to frequent falls H/O CVA hold ASA and Plavix due to hematoma continue statin Urinary Retention: Postvoid residual > 200 ml oxybutynin discontinued Gout continue allopurinol DVT Px: SCDs due to hematoma Code Status: full code Disposition: Plan to discharge back to [facility] today Follow up with your Primary Care Physician in 1 week as advised Complete the antibiotic course as advised Seek immediate medical attention if your symptoms reoccur or worsen Hold Aspirin, Plavix for 1 week and restart after discussing with your Primary Care physician PROCEDURES: CT Head: No significant change compared to the prior study. No acute intracranial abnormality. CTA: 1. No evidence for pulmonary embolus. 2. Mild cardiomegaly. 3. Small focal density within the right lower lobe posteriorly. This favors atelectasis. However, a small pneumonia could also have a similar appearance. CT ABD: 1. Large right flank/gluteal subcutaneous hematoma measuring 15 x 14 x 10 cm. 2. No evidence for a retroperitoneal hematoma. 3. Large left lateral abdominal wall hernia containing multiple loops of large and small bowel. No evidence for bowel obstruction. 4. Multiple old fractures as described above. No acute fractures identified. Total time spent on discharge = 33 minutes This includes examination of the patient, discharge planning, medication reconciliation, and communication with other providers. Discharge Instructions Discharge Instructions Date of Service Jul 20, 2017. Admission Reason for Admission: Anemia, Syncope Discharge Discharge Diagnosis / Problem: Acute Blood loss anemia, UTI, Fall Discharge Goals Goal(s): Decrease discomfort, Improve function Activity Recommendations Activity Limitations: resume your previous activity Exercise/Sports Limitations: as tolerated . Instructions / Follow-Up Instructions / Follow-Up Follow up with your Primary Care Physician in 1 week as advised Complete the antibiotic course as advised Seek immediate medical attention if your symptoms reoccur or worsen Hold Aspirin, Plavix for 1 week and restart after discussing with your Primary Care physician Your Oxybutynin is discontinued secondary to Urinary Retention Current Hospital Diet Patient's current hospital diet: AHA Diet (Heart Healthy) Discharge Diet Recommended Diet: AHA Diet (Heart Healthy) Pending Studies Studies pending at discharge: no Medical Emergencies . Who to Call and When: Medical Emergencies: If at any time you feel your situation is an emergency, please call 911 immediately. . Non-Emergent Contact Non-Emergency issues call your: Primary Care Provider Call Non-Emergent contact if: you have a fever, your pain is not controlled, your pain is worsening, your pain is unusual for you, your pain is concerning you, you have any medication questions Seek immediate medical attention if your symptoms reoccur or worsen . . "Provider Documentation" section prepared by Thien Craig. . VTE Core Measure Inpt VTE Proph given/why not?: SCD's
[2017-07-20 12:00] VITALS: BP 142/84; PULSE 84; TEMP 36.4; O2SAT 95
[2017-07-20] MEDS ORDERED: CEFU1TAB35 PO (12:53)
== END 2017-07-20 14:24 | disposition home or self-care (01) | DRG 812 ==
LOC: EDBD 18:34 → C.EDC 18:36 → C.MED 22:05 → ENRESERV 22:32
PROVIDERS: ADMIT Hospitalist; ATTEND Internal Medicine
DX: D62 Acute posthemorrhagic anemia (principal); N39.0 Urinary tract infection, site not specified; R55 Syncope and collapse; S05.11XA Contusion of eyeball and orbital tissues, right eye, initial encounter; S70.01XA Contusion of right hip, initial encounter; R29.6 Repeated falls; I48.2 Chronic atrial fibrillation; N18.3 Chronic kidney disease, stage 3 (moderate); M10.9 Gout, unspecified; F32.9 Major depressive disorder, single episode, unspecified; I12.9 Hypertensive chronic kidney disease with stage 1 through stage 4 chronic kidney disease, or unspecified chronic kidney disease; R35.0 Frequency of micturition; R33.9 Retention of urine, unspecified; Z79.02 Long term (current) use of antithrombotics/antiplatelets; Z79.82 Long term (current) use of aspirin; Z79.899 Other long term (current) drug therapy; Z86.73 Personal history of transient ischemic attack (TIA), and cerebral infarction without residual deficits; Z87.891 Personal history of nicotine dependence; Z88.1 Allergy status to other antibiotic agents; Z91.81 History of falling; W18.30XA Fall on same level, unspecified, initial encounter; Y92.121 Bathroom in nursing home as the place of occurrence of the external cause; S50.01XA Contusion of right elbow, initial encounter

== ENCOUNTER → 2018-03-03 | Outpatient (CLI) | payer OTHER ==
[~2018-03-03] MED LIST changes: +CEFU1TAB35 PO; -CETI10TA73 PO; -DTR5 PO; -IBUP-1050 PO; -POLYSOL4 OP; -TRAM-10 PO
[2018-03-03 12:52] LABS: HEMOGLOBIN 12.4 g/dL (12.0-16.0); MEAN CORPUSCULAR HEMOGLOBIN 32.3 pg (25-34); MEAN CORPUSCULAR HGB CONC 32.6 g/dl (32-36); MEAN PLATELET VOLUME 10.4 fL (7.4-10.4); PLATELET COUNT 154 K/uL (130-400); RED CELL DISTRIBUTION WIDTH CV 13.3 % (11.5-14.5); RED CELL DISTRIBUTION WIDTH SD 47.8 fL (36.4-46.3); WHITE BLOOD COUNT 3.66 K/uL (4.8-10.8)
[2018-03-03 13:42] LABS: BLOOD UREA NITROGEN 34 mg/dl (7-18); CALCIUM 8.9 mg/dl (8.5-10.1); CARBON DIOXIDE 27 mmol/L (21-32); CREATININE 1.44 mg/dl (0.60-1.20); GLUCOSE 76 mg/dl (70-99); POTASSIUM 4.5 mmol/L (3.5-5.1); SODIUM 135 mmol/L (136-145)
== END | disposition home or self-care (01) ==
LOC: C.LABWYN 16:19
PROVIDERS: ATTEND Internal Medicine
DX: I11.9 Hypertensive heart disease without heart failure (principal); Z88.1 Allergy status to other antibiotic agents; Z88.8 Allergy status to other drugs, medicaments and biological substances

== ENCOUNTER 2019-05-14 08:58 | Inpatient (IN) ==
--- NOTE | 2019-05-12 08:56 | Anesthesiology Consultation ---
Date of Service May 12, 2019 Assessment & Plan Chart Review Chart Review: Acceptable Risk for Surgery and Patient NOT seen in Pre Admission Testing Pt had a stroke--> fall--> broken hip/wrist on 04/02/19 Consults Requested none History Surgery Operation Date: 05/14/19 13:30 Proposed Procedures p Right Hip Incision and Drainage, - Trev Gupta DO s Possible Right Hip Arthroplasty Head Exchange - Trev Gupta DO Allergies Allergy/AdvReac Type Severity Reaction Status Date / Time Cipro Allergy Unknown unknown Verified 07/17/17 19:21 ciprofloxacin Allergy Unknown unknown Verified 04/22/19 20:22 clindamycin Allergy Unknown unknown Verified 04/22/19 20:22 lisinopril Allergy Unknown unknown Verified 04/22/19 20:22 Medications Home Medications Medication Instructions Recorded Confirmed Last Taken acetaminophen 650 mg PO TID PRN 04/02/19 04/22/19 Unknown allopurinol 100 mg PO DAILY 04/02/19 04/22/19 04/22/19 amlodipine 5 mg PO DAILY 04/02/19 04/22/19 04/22/19 aspirin 81 mg PO DAILY 04/02/19 04/22/19 04/22/19 cetirizine 5 mg PO DAILY PRN 04/02/19 04/22/19 04/22/19 citalopram 40 mg PO DAILY 04/02/19 04/22/19 04/22/19 clopidogrel [Plavix] 75 mg PO DAILY 04/02/19 04/22/19 04/22/19 cyanocobalamin (vitamin B-12) 1,000 mcg PO DAILY 04/02/19 04/22/19 04/22/19 diclofenac sodium 2 g TOPICAL QID 04/02/19 04/22/19 04/22/19 ferrous gluconate 324 mg PO DAILY 04/02/19 04/22/19 04/22/19 folic acid 1 mg PO Q2D 04/02/19 04/22/19 Unknown metoprolol succinate 50 mg PO BID 04/02/19 04/22/19 04/22/19 oxybutynin chloride 5 mg PO BID 04/02/19 04/22/19 04/22/19 sennosides [senna] 8.6 mg PO HS 04/02/19 04/22/19 04/21/19 docusate sodium 100 mg PO BID PRN #30 cap 04/07/19 04/22/19 Unknown polyethylene glycol 3350 [Miralax] 17 g PO DAILY PRN #30 ea 04/07/19 04/22/19 Unknown simvastatin 40 mg PO DAILY 04/22/19 04/22/19 04/21/19 Past Medical History Medical History A-fib (Chronic) CVA (cerebral vascular accident) (Chronic) CKD (chronic kidney disease), stage III (Chronic) Gout (Chronic) HTN (hypertension) (Chronic) Depression (Chronic) Past Surgical History Surgical History History of hemiarthroplasty of left hip (Chronic) History of hysterectomy (Chronic) History of hernia repair (Chronic) Social History Smoking Status: Former smoker Hx Alcohol Use: Yes Alcohol type: beer and wine alcohol intake frequency: 3 or more drinks per day Hx Substance Use: No substance use type: does not use Testing Electrocardiogram Date: 04/05/19 Findings: + AFIB @ (91 bpm) T wave abnormality inferior/anterior ischemia Echocardiogram Date: 04/05/19 EF: 55-60% Other Findings: + diastolic dysfunction (grade 3) Valvular Disease: + (moderate) and + pertinent finding (severe TR) severely reduced RV systolic function
--- NOTE | 2019-05-13 19:50 | History & Physical Report ---
Date of Service May 13, 2019 Assessment & Plan (1) Seroma after procedure: Schedule a right hip I & D and possible right hip hemiarthroplasty head exchange for 05.14.19. All potential risks, benefits, complications, alternatives, and rehab have been discussed with the patient and she wishes to proceed. Plan for restarting Plavix and ASA post op for DVT prophylaxis. (2) History of right hip hemiarthroplasty: (3) Delayed surgical wound healing: History of Present Illness Chief Complaint: right hip wound This is a patient who sustained a right hip fx approximately 6 weeks ago and had a right bipolar hemiarthroplasty done by Dr. Gupta during the admission. She was seen in a post operative visit and had an open area at the central portion of the incision with what appeared to be a draining seroma. She was placed on antibiotics and seen back the following week. She still had the draining wound and now she is being set up for surgical I & D. Allergies Allergy/AdvReac Type Severity Reaction Status Date / Time Cipro Allergy Unknown unknown Verified 07/17/17 19:21 ciprofloxacin Allergy Unknown unknown Verified 05/13/19 14:55 clindamycin Allergy Unknown unknown Verified 05/13/19 14:55 lisinopril Allergy Unknown unknown Verified 05/13/19 14:55 Home Medications Home Medications Medication Instructions Recorded Confirmed Type acetaminophen 650 mg PO TID PRN 04/02/19 05/13/19 History allopurinol 100 mg PO DAILY 04/02/19 05/13/19 History amlodipine 5 mg PO DAILY 04/02/19 05/13/19 History aspirin 81 mg PO DAILY 04/02/19 05/13/19 History cetirizine 5 mg PO DAILY PRN 04/02/19 05/13/19 History citalopram 40 mg PO DAILY 04/02/19 05/13/19 History clopidogrel [Plavix] 75 mg PO DAILY 04/02/19 05/13/19 History cyanocobalamin (vitamin B-12) 1,000 mcg PO DAILY 04/02/19 05/13/19 History diclofenac sodium 2 g TOPICAL QID 04/02/19 05/13/19 History ferrous gluconate 324 mg PO DAILY 04/02/19 05/13/19 History folic acid 1 mg PO Q2D 04/02/19 05/13/19 History metoprolol succinate 50 mg PO BID 04/02/19 05/13/19 History oxybutynin chloride 5 mg PO BID 04/02/19 05/13/19 History sennosides [senna] 8.6 mg PO HS 04/02/19 05/13/19 History docusate sodium 100 mg PO BID PRN #30 cap 04/07/19 05/13/19 Rx polyethylene glycol 3350 [Miralax] 17 g PO DAILY PRN #30 ea 04/07/19 05/13/19 Rx simvastatin 40 mg PO DAILY 04/22/19 05/13/19 History ascorbic acid (vitamin C) [Vitamin 500 mg PO DAILY 05/13/19 05/13/19 History C] multivitamin 1 cap PO DAILY 05/13/19 05/13/19 History Past Med/Surg History Medical History A-fib (Chronic) CVA (cerebral vascular accident) (Chronic) embolism of right cerebellar artery CKD (chronic kidney disease), stage III (Chronic) Gout (Chronic) HTN (hypertension) (Chronic) Depression (Chronic) Stenosis of right carotid artery Surgical History History of hemiarthroplasty of left hip (Chronic) History of hysterectomy (Chronic) History of hernia repair (Chronic) Social History Preferred Language: Luxembourgish Communication Ability: Effective Clinical Review Specialist Required: No Beliefs That Will Affect Care: None marital status: / Current Living Situation: [facility] Current Living Situation Comment: [facility] Other Information That Helps Us Care for You: No Feels Safe at Home: Yes Safety Concerns: Feels Safe At This Time Smoking Status: Never smoker Do You Dip or Chew Tobacco: No ; Second Hand Exposure: No ; Tobacco Cessation Education Requested by Patient: No Hx Alcohol Use: Yes Alcohol type: beer and wine Hx Substance Use: No Physical Exam Constitutional: well developed and well nourished; no acute distress ENMT: external ear and nose normal, oropharynx normal Neck: trachea midline, no thyromegaly Respiratory: normal respiratory effort, lungs clear to auscultation Cardiovascular: Rate/Rhythm: + irregularly irregular Gastrointestinal (Abdomen): normal bowel sounds, soft, nontender, no hepatosplenomegaly Musculoskeletal: Hip: + surgical incision (right hip with central draining area. Serous drainage.); no skin erythema, no ecchymosis, no crepitation with hip ROM and log roll test negative Skin: no rashes, warm and dry + wound (Draining right hip wound at incision , ~5 mm.) Neurologic: normal touch/pain/proprioception Psychiatric: A+Ox3, euthymic affect Lymphatic: no cervical or axillary lymphadenopathy
[~2019-05-14 08:58] MED LIST changes: -ACET-1311 PO; +ACETAMINOPHEN 500 MG TAB PO SCH; -ALLO100T PO; -ASPI81TA28 PO; -CEFU1TAB35 PO; -CETI10TA62 PO; -CHOL200010 PO; -CITA40TA4 PO; -CLOP1TAB15 PO; -CYAN100020 PO; +CeleBREX 200 MG CAP PO SCH; -DICL1GEL34 TOP; +FAMOTIDINE 20 MG TAB PO SCH; -FERR325T18 PO; -FLV1 PO; +GABAPENTIN 300 MG CAP PO SCH; +LR 15ML/HR IV SCH; -METO-217 PO; +METOCLOPRAMIDE HCL 10 MG TABLET PO SCH; -PANT40TA PO; -POLY1SOL6 OPB; -SENN-61 PO; -SIMV20TA2 PO; +dexAMETHasone 4 MG TAB PO SCH
[2019-05-14] MEDS ORDERED: CEFAZOLIN 1,000 MG/7.5 ML IV PUSH IV ONE (10:01)
[2019-05-14] MEDS ORDERED: ROPIVACAINE 0.5% HCL/PF 150 MG, BUPIVACAINE 0.5% MPF 30 ML, EPINEPHrine 30MG/30ML (OR U... INSTIL ONE (10:45)
[2019-05-14 11:06] LABS: Basophils # (auto) 0.02 K/uL (0-0.2); Basophils % (auto) 0.3 %; Eosinophils # (auto) 0.26 K/uL (0-0.5); Eosinophils % (auto) 3.8 %; Hematocrit (blood only) 32.7 % (37-47); Hemoglobin 10.5 g/dL (12.0-16.0); Immature Granulocytes # (auto) 0.01 K/uL (0.00-0.02); Immature Granulocytes % (auto) 0.1 %; Lymphocytes # (auto) 2.35 K/uL (1.2-3.4); Lymphocytes % (auto) 34.5 %; Mean Corpuscular Hemoglobin 32.7 pg (25-34); Mean Corpuscular Volume 101.9 fL (80-100); Mean Platelet Volume 9.3 fL (7.4-10.4); Monocytes # (auto) 0.42 K/uL (0.11-0.59); Monocytes % (auto) 6.2 %; Neutrophils # (auto) 3.76 K/uL (1.4-6.5); Neutrophils % (auto) 55.1 %; Platelet Count 212 K/uL (130-400); RDW Coefficient of Variation 16.7 % (11.5-14.5); RDW Standard Deviation 62.4 fL (36.4-46.3); Red Blood Count 3.21 M/uL (4.2-5.4); White Blood Count 6.82 K/uL (4.8-10.8)
[2019-05-14 11:12] LABS: Mean Corpuscular Hgb Conc 32.1 g/dL (32-36)
--- NOTE | 2019-05-14 11:13 | History & Physical Bridge Note ---
Date of Service May 14, 2019 History & Physical Bridge Note I have examined the patient, reviewed the History & Physical and in the interval since the performance of the History & Physical I have noted the following changes of clinical significance: no changes noted
[2019-05-14] MEDS ORDERED: ATROPINE SULFATE 0.1 MG/ML 10ML SYR IV PRN (12:30)
[2019-05-14] MEDS ORDERED: ONDANSETRON INJ 2 MG/ML 2 ML VIAL IV PRN ×2 (12:30→17:43)
[2019-05-14] MEDS ORDERED: KETOROLAC 30 MG/ML VIAL IV PRN (12:30)
[2019-05-14] MEDS ORDERED: LABETALOL HCL IV 5 MG/ML 20ML IV PRN (12:30)
[2019-05-14] MEDS ORDERED: HYDROmorphone INJ 1 MG/ML SYRINGE IV PRN (12:30)
[2019-05-14] MEDS ORDERED: MIDAZOLAM HCL 1 MG/ML 2ML VIAL ONE (12:55)
[2019-05-14] MEDS ORDERED: fentaNYL citrate 100 MCG/2 ML VIAL ONE (12:56)
[2019-05-14] MEDS ORDERED: ROCURONIUM BROMIDE 10 MG/ML 5 ML VIAL ONE (12:59)
[2019-05-14] MEDS ORDERED: LIDOCAINE HCL 2% 2 ML VIAL/AMP(20MG/ML) INFIL ONE (12:59)
[2019-05-14] MEDS ORDERED: PROPOFOL IV EMULSION 10 MG/ML 20 ML VIAL IV ONE (12:59)
[2019-05-14] MEDS ORDERED: ONDANSETRON INJ 2 MG/ML 2 ML VIAL ONE (12:59)
[2019-05-14] MEDS ORDERED: BACITRACIN INJ 50,000 UNIT VIAL ONE (13:22)
[2019-05-14] MEDS ORDERED: PHENYLEPHRINE HCL 10 MG/ML VIAL ONE (14:17)
--- NOTE | 2019-05-14 16:21 | Post Operative Brief Note ---
Immediate Post Op Note v1 Date of Surgery May 14, 2019 Pre & Post Diagnosis Operation Date: 05/14/19 11:30 Pre-Op Diagnosis: (1)Seroma after procedure: (2) History of right hip hemiarthroplasty: (3) Delayed surgical wound healing: Post-Op Diagnosis: (1)Seroma after procedure: (2) History of right hip hemiarthroplasty: (3) Delayed surgical wound healing: I identified the patient and participated in the time-out.: Yes Procedure Operation Date: 05/14/19 11:30 Actual Procedures p Right Hip Incision and Drainage, Right Hip Debridement skin, fascia, vastus lateralis, iliotibial band (Right) - Trev Gupta DO Surgeon Trev Gupta DO Reverberatory Skimmer Weston Felix PA-C Estimated Blood Loss 50 Findings Consistent with Post-Op Diagnosis Specimens Aerobic anaerobic Gram stain right hip, Deep tissue for frozen section Drains Hemovac Drain (10 fr dual x2) Anesthesia Type General Complications none Disposition Accompanied Patient To Recovery: Yes Disposition: Recovery Room
--- NOTE | 2019-05-14 16:46 | Anesthesiology Progress Note ---
Date of Service May 14, 2019 Anesthesia Post Procedure Vital Signs Vital Signs: Temp Pulse Pulse Resp BP BP Pulse Ox 05/14/19 16:35 83 18 81/59 L 100 05/14/19 16:25 92 H 18 94/58 L 100 05/14/19 16:19 36.3 C L 93 H 18 80/58 L 100 05/14/19 09:46 36.6 C 76 18 151/84 H 98 Transfer of Care Handoff Completed per policy Notes Mental Status: alert / awake / arousable Patient Amnestic to Procedure: Yes Nausea / Vomiting: adequately controlled Pain: adequately controlled Airway Patency, RR, SpO2: stable & adequate BP & HR: stable & adequate Hydration State: stable & adequate Anesthetic Complications: no major complications apparent
[2019-05-14] MEDS ORDERED: POLYETHYLENE (MIRALAX) 17 GM PACK PO PRN (17:43)
[2019-05-14] MEDS ORDERED: bisacodyL 10 MG SUPP PR PRN (17:43)
[2019-05-14] MEDS ORDERED: METOCLOPRAMIDE HCL INJ 5 MG/ML 2 ML VIAL IV PRN (17:43)
[2019-05-14] MEDS ORDERED: MAGNESIUM HYDROXIDE SUSP 30 ML UDC PO PRN (17:43)
[2019-05-14] MEDS ORDERED: OXYCODONE HCL IR 5 MG TAB (IMMEDIATE RELEASE) PO PRN (17:43)
[2019-05-14] MEDS ORDERED: NALOXONE HCL 0.4 MG/1 ML VIAL/CARP IV PRN (17:43)
[2019-05-14] MEDS ORDERED: HYDROmorphone INJ 0.5 MG/0.5 ML SYR IV PRN (17:43)
--- NOTE | 2019-05-14 18:04 | Operative Report ---
DATE OF OPERATION: 05/14/2019 PREOPERATIVE DIAGNOSES: 1. Right hip seroma. 2. Nonhealing surgical wound, wound dehiscence status post right hip hemiarthroplasty. POSTOPERATIVE DIAGNOSES: 1. Right hip seroma. 2. Nonhealing surgical wound, wound dehiscence status post right hip hemiarthroplasty. PROCEDURES: 1. Evacuation seroma, right hip. 2. Irrigation and debridement including hip skin, fascia, iliotibial band, vastus lateralis muscle. SURGEON: Trev Gupta DO. ADVERTISING REP: Weston Felix PA-C. who was present for patient positioning, sterile prep and drape, management of retractors and instruments. He was present through the critical portions of the case including wound closure, application of sterile dressing and transport of the patient to recovery. ANESTHESIA: General. SPECIMENS: 1. Aerobic, anaerobic, Gram stain, superficial right hip. 2. Tissue for frozen section and examination under microscopy. DRAINS: Hemovac x2 complete sets, 4 drains tubes with a Prevena drain, right hip. COMPLICATIONS: None. BLOOD LOSS: 50 mL. PERTINENT HISTORY: This is an 78-year-old female who had previously undergone a hemiarthroplasty of the right hip status post fall for fracture. Initially, she had an unremarkable recovery course with good progress with physical therapy and then developed persistent clear drainage which lasted for approximately 2-1/2 weeks until she was seen in clinic earlier this week and she was then scheduled for surgical treatment as indicated for persistent draining of the right hip. All potential risks, benefits, complications, alternatives, rehab, potential for incomplete the symptoms, need for further surgery, DVT, PE, , persistent pain, swelling, scarring, weakness, neurovascular injury, wound complications, hardware failure, need for revision surgery were discussed with the patient. The patient decided to proceed with the procedure as indicated. DESCRIPTION OF PROCEDURE: The patient was taken to the operative suite, placed supine on the operating room table. After review of consent and identification of proper operative site, the patient was anesthetized and rolled into the left lateral decubitus position with the affected side up. Stulberg positioner was used to stabilize the pelvis. All bony prominences were properly padded and protected. Next, the right hip was then sterilely prepped and draped in usual fashion. Next, 10 blade scalpel was used to make an incision in the mid pole of the incision extending proximally and distally. Incision through the soft tissue then yielded entry into the sinus which turned into a superficial pocket of tissue and fluid. Hemosiderin stained fluid was noted. This was then cultured, aerobic, anaerobic, Gram stain. Next, the blunt and sharp dissection was then used to open the soft tissue over the iliotibial band. This was clearly defined and noted to be more as a larger seroma pocket which involved the tissue superficial to the iliotibial band as well as the tissue deep to the iliotibial band to the level of the vastus lateralis. Next tissue plane was then further developed and further fluid was encountered. There was no evidence of obvious purulence. The deep capsular closure appeared to be intact using finger palpation and use of range of motion. There was noted to be no extrusion of any further fluid into the space. After the seroma was evacuated with suction, there was no more drainage into the seroma pocket. Next, a superficial soft tissue was harvested for aerobic, anaerobic, Gram stain and then a deep soft tissue adjacent to the greater trochanteric closure of the hip joint capsule was then taken for specimen with a rongeur and passed in a sterile cup for frozen section with high powered field analysis. Next, there was noted to be no obvious tracking into the deep structures were into the hip joint capsule. Initial debridement was performed with a large curette and rongeur, removing any obvious scar tissue or any encapsulation of the seroma. Next, after curettage was performed of the entire incision, the Versajet was used to debride the soft tissues in all surfaces of the hip joint including subcutaneous fascia, skin fascia multiple layers down below the lateral hip joint capsule closure. After this was completed laboratory informed there was no evidence of any obvious organisms for the Gram stain and the analysis per high powered field was inconclusive. The decision was made to stop with debridement only and not involve exchange of the head or polyethylene liner. Range of motion was noted to be stable. There was no extrusion of any fluid deep at the level of the hip joint prosthesis. Next, the tissue was then lavaged once again with pulsatile lavage with bacitracin, top gloves and top sheet were then changed, new sterile instruments were used and then closure over drains was performed in multiple layers after debridement of the vastus lateralis iliotibial band, skin and fascia had been completed. #1 Vicryl closure was performed over multiple layers with multiple drains x4. The vastus lateralis closed using #1 Vicryl. The iliotibial band was closed using #1 Vicryl. Next, the skin was then closed using a combination of skin bartolo and 2-0 nylon vertical mattress sutures. A Prevena drain was then applied and the drains were all placed to suction. Sterile compressive dressing was applied. The patient was awakened, rolled supine and taken to recovery in stable condition. I attest to the content of the Intraoperative Record and any orders documented therein. Any exception s are noted below.
[2019-05-14] MEDS ORDERED: CETIRIZINE HCL 10 MG TABLET PO PRN (18:30)
[2019-05-14] MEDS: SODIUM CHLORIDE 0.9% 1000ML 1,000 ML IV SCH ×2 (18:37→22:35)
[2019-05-14] MEDS: FERROUS GLUCONATE 324 MG TAB PO SCH (19:30)
[2019-05-14] MEDS ORDERED: SODIUM CHLORIDE 0.9% 500 ML IV SCH ×2 (19:30→21:15)
[2019-05-14] MEDS: FOLIC ACID 1 MG TAB PO SCH (19:31)
[2019-05-14] MEDS: OXYBUTYNIN CHLORIDE 5 MG TAB PO SCH (20:30)
[2019-05-14] MEDS: DOCUSATE SODIUM 100 MG CAP PO SCH (20:30)
[2019-05-14] MEDS: SENNA 8.6 MG TAB PO SCH (20:30)
[2019-05-14] MEDS: ASPIRIN 81 MG ECTAB PO SCH (20:30)
[2019-05-14] MEDS ORDERED: METOPROLOL SUCC 50MG EXT REL TAB PO SCH (21:00)
[2019-05-14] MEDS: ACETAMINOPHEN 500 MG TAB PO SCH (21:19)
--- NOTE | 2019-05-14 21:46 | Internal Medicine Consult Note ---
Date of Consultation May 14, 2019 Assessment & Plan (1) Postoperative hypotension: Hypotension postoperatively. Systolic BP's in 80s - 90s postop. Patient appears to be clinically stable and is in no distress. Creatinine elevated compared to baseline; may be dehydrated. No apparent significant postop blood loss, but consider thigh hematoma. Afebrile. No signs / symptoms of sepsis. IV NSS boluses ordered. Hold parameters for BP meds. Continue to monitor. (2) Dysphagia: Episode of airway obstruction while eating supper. Successful expulsion of large piece of meat after Heimlich maneuver performed by staff. Clear liquid diet. Aspiration precautions. Bedside swallow evaluation by MACHINING DEPARTMENT SUPERVISOR. (3) A-fib: Rate-controlled with metoprolol. Not anticoagulated because of high fall risk. (4) HTN (hypertension): BP's low postop. Hold parameters for metoprolol and amlodipine. (5) CKD (chronic kidney disease), stage III: CKD III with recent recent baseline creatinine 1.2 - 1.4. Creatinine this evening 1.61. Maintain adequate volume status. Avoid NSAID's if possible. Follow. (6) Gout: Continue allopurinol. (7) Dementia: Monitor for delirium. Avoid meds with BUHR DRESSER side effects whenever possible. (8) DVT prophylaxis: Per Orthopedics protocol. (9) Encounter for consultation: Thank you for this consultation. We will follow the patient with you during their hospital stay. My cell # is [phone]. You can reach a member of the [facility] Medicine Team 17/02 via pager @ [phone]. History of Present Illness Reason for Consultation: postoperative medical management Requesting Physician: Dr. Gupta. Attending Physician: Trev Gupta DO History of Present Illness 78-year-old female with history of atrial fibrillation, cerebrovascular disease, CKD, hypertension, dementia, and other problems. Resident at [facility], followed by Dr. Ayers. She fell on 04/02/2019 and suffered fractures of the right hip and right distal radius. Right hip fracture repaired on 04/03/2019. Patient transferred to [facility] for custodial care on 04/07/2019. She developed a postoperative seroma and poor healing of surgical wound. Readmitted today for evacuation of seroma, irrigation, debridement. Procedure was performed under general anesthesia. Estimated blood loss was around 50 mL's. Patient had low blood pressures in the 80s and 90s in the PACU and received IV fluids. She was admitted to the Mid-Surge Unit. This evening she had an episode of dysphagia and difficulty breathing while eating her dinner. Staff performed Heimlich maneuver with successful expulsion of a large piece of meat. Patient felt fine after the episode. At time of my assessment, she denied chest pain, shortness of breath, nausea, vomiting, or other problems. Allergies Allergy/AdvReac Type Severity Reaction Status Date / Time Cipro Allergy Unknown unknown Verified 07/17/17 19:21 ciprofloxacin Allergy Unknown unknown Verified 05/14/19 09:32 clindamycin Allergy Unknown unknown Verified 05/14/19 09:32 lisinopril Allergy Unknown unknown Verified 05/14/19 09:32 Home Medications Home Medications Medication Instructions Recorded Confirmed Type acetaminophen 650 mg PO TID PRN 04/02/19 05/14/19 History allopurinol 100 mg PO DAILY 04/02/19 05/14/19 History amlodipine 5 mg PO DAILY 04/02/19 05/14/19 History aspirin 81 mg PO DAILY 04/02/19 05/14/19 History cetirizine 5 mg PO DAILY PRN 04/02/19 05/14/19 History citalopram 40 mg PO DAILY 04/02/19 05/14/19 History clopidogrel [Plavix] 75 mg PO DAILY 04/02/19 05/14/19 History cyanocobalamin (vitamin B-12) 1,000 mcg PO DAILY 04/02/19 05/14/19 History diclofenac sodium 2 g TOPICAL QID 04/02/19 05/14/19 History ferrous gluconate 324 mg PO DAILY 04/02/19 05/14/19 History folic acid 1 mg PO Q2D 04/02/19 05/14/19 History metoprolol succinate 50 mg PO BID 04/02/19 05/14/19 History oxybutynin chloride 5 mg PO BID 04/02/19 05/14/19 History sennosides [senna] 8.6 mg PO HS 04/02/19 05/14/19 History docusate sodium 100 mg PO BID PRN #30 cap 04/07/19 05/14/19 Rx polyethylene glycol 3350 [Miralax] 17 g PO DAILY PRN #30 ea 04/07/19 05/14/19 Rx simvastatin 40 mg PO DAILY 04/22/19 05/14/19 History ascorbic acid (vitamin C) [Vitamin 500 mg PO DAILY 05/13/19 05/14/19 History C] multivitamin 1 cap PO DAILY 05/13/19 05/14/19 History Patient History Medical History Dementia (Chronic) A-fib (Chronic) CVA (cerebral vascular accident) (Chronic) embolism of right cerebellar artery CKD (chronic kidney disease), stage III (Chronic) Gout (Chronic) HTN (hypertension) (Chronic) Depression (Chronic) Dementia (Chronic) Stenosis of right carotid artery (Chronic) Surgical History History of hemiarthroplasty of left hip (Chronic) History of hysterectomy (Chronic) History of hernia repair (Chronic) Family History Mother , childbirth No problems noted. Social History Preferred Language: Finnish Communication Ability: Effective Screen Printing Stencil Preparer Required: No Beliefs That Will Affect Care: None marital status: / Current Living Situation: Jail Current Living Situation Comment: [facility] Other Information That Helps Us Care for You: No Feels Safe at Home: Yes Safety Concerns: Feels Safe At This Time Smoking Status: Never smoker Do You Dip or Chew Tobacco: No ; Second Hand Exposure: No ; Tobacco Cessation Education Requested by Patient: No Hx Alcohol Use: Yes Alcohol type: beer and wine Hx Substance Use: No Review of Systems Constitutional: no fever and no weight loss Respiratory: no cough and no dyspnea Cardiovascular: no chest pain Gastrointestinal: no nausea, no vomiting, no constipation, no diarrhea/loose stools and no blood in stools Genitourinary: no dysuria and no hematuria Musculoskeletal: + joint pain Physical Exam Constitutional: WD/WN, vitals as above no acute distress Eyes: PERRL, conjunctivae normal, anicteric sclerae ENMT: external ear and nose normal, oropharynx normal Mouth: + dentition abnormality (poor dentition) Neck: trachea midline, no thyromegaly Respiratory: normal respiratory effort, lungs clear to auscultation Cardiovascular: Rate/Rhythm: + irregularly irregular Heart Sounds: no gallop, no murmur and no cardiac rub Vessels: no JVD Extremities: normal capillary refill; no calf tenderness and no edema Gastrointestinal (Abdomen): normal bowel sounds, soft, nontender, no hepatosplenomegaly Musculoskeletal: Head/Neck/Chest: neck supple Extremities: strength 5/5 throughout; no cyanosis and no clubbing right hip / thigh bandaged Skin: no rashes, warm and dry Neurologic: PERRL, EOMI no facial palsy no dysarthria or aphasia Psychiatric: Orientation: alert, oriented to person and oriented to place; + not oriented x 3 and + not oriented to time (day of week, but not year) Affect: euthymic affect Lymphatic: no cervical lymphadenopathy Results & Data Vital Signs (Past 12 Hours) Vital Signs Temp Pulse Pulse Resp BP BP Pulse Ox 05/14/19 18:56 36.3 C L 18 85/56 L 05/14/19 18:34 90/59 L 05/14/19 18:14 36.3 C L 94 H 16 85/59 L 97 05/14/19 17:46 36.3 C L 86 16 92/64 L 100 05/14/19 17:30 36.2 C L 83 17 92/66 L 100 05/14/19 17:15 74 18 95/61 L 100 05/14/19 17:05 36.2 C L 87 18 96/54 L 100 05/14/19 16:55 36.2 C L 75 18 97/60 L 100 05/14/19 16:45 76 18 94/63 L 100 05/14/19 16:35 83 18 81/59 L 100 05/14/19 16:25 92 H 18 94/58 L 100 05/14/19 16:19 36.3 C L 93 H 18 80/58 L 100 05/14/19 09:46 36.6 C 76 18 151/84 H 98 Laboratory Results Laboratory Results - last 24 hr 05/14/19 05/14/19 05/14/19 09:48 10:48 10:48 WBC 6.82 RBC 3.21 L Hgb 10.5 L Hct 32.7 L MCV 101.9 H MCH 32.7 MCHC 32.1 RDW Std Deviation 62.4 H RDW Coeff of Marcia 16.7 H Plt Count 212 MPV 9.3 Immature Gran % (Auto) 0.1 Neut % (Auto) 55.1 Lymph % (Auto) 34.5 Cache % (Auto) 6.2 Eos % (Auto) 3.8 Baso % (Auto) 0.3 Immature Gran # (Auto) 0.01 Neut # (Auto) 3.76 Lymph # (Auto) 2.35 Cache # (Auto) 0.42 Eos # (Auto) 0.26 Baso # (Auto) 0.02 ESR 36 H Sodium Potassium Chloride Carbon Dioxide Anion Gap BUN Creatinine Est Cr Clr Drug Dosing Est GFR ( Amer) Est GFR (Non-Af Amer) BUN/Creatinine Ratio Glucose Calcium C-Reactive Protein Nasal Screen MRSA (PCR) Blood Type A Positive Antibody Screen NEGATIVE 05/14/19 05/14/19 05/14/19 10:48 18:30 21:34 WBC RBC Hgb 8.0 L Hct 24.9 L MCV MCH MCHC RDW Std Deviation RDW Coeff of Marcia Plt Count MPV Immature Gran % (Auto) Neut % (Auto) Lymph % (Auto) Cache % (Auto) Eos % (Auto) Baso % (Auto) Immature Gran # (Auto) Neut # (Auto) Lymph # (Auto) Cache # (Auto) Eos # (Auto) Baso # (Auto) ESR Sodium Potassium Chloride Carbon Dioxide Anion Gap BUN Creatinine Est Cr Clr Drug Dosing Est GFR ( Amer) Est GFR (Non-Af Amer) BUN/Creatinine Ratio Glucose Calcium C-Reactive Protein 1.47 H Nasal Screen MRSA (PCR) Negative Blood Type Antibody Screen 05/14/19 21:34 WBC RBC Hgb Hct MCV MCH MCHC RDW Std Deviation RDW Coeff of Marcia Plt Count MPV Immature Gran % (Auto) Neut % (Auto) Lymph % (Auto) Cache % (Auto) Eos % (Auto) Baso % (Auto) Immature Gran # (Auto) Neut # (Auto) Lymph # (Auto) Cache # (Auto) Eos # (Auto) Baso # (Auto) ESR Sodium 138 Potassium 4.3 Chloride 109 H Carbon Dioxide 21 Anion Gap 8.0 BUN 33 H Creatinine 1.61 H Est Cr Clr Drug Dosing 23.6 Est GFR ( Amer) 34.6 Est GFR (Non-Af Amer) 29.9 BUN/Creatinine Ratio 20.6 H Glucose 156 H Calcium 8.1 L C-Reactive Protein Nasal Screen MRSA (PCR) Blood Type Antibody Screen
[2019-05-14 21:51] LABS: Hematocrit (blood only) 24.9 % (37-47)
[2019-05-14] MEDS ORDERED: CEFAZOLIN IV SCH (22:00)
[2019-05-14 22:07] LABS: BUN Creatinine Ratio 20.6 (10-20); Calcium 8.1 mg/dl (8.5-10.1); Creatinine Clr Calc Pharmacy 23.6 ml/min; Est GFR (African American) 34.6; Est GFR (Non-African American) 29.9; Potassium 4.3 mmol/L (3.5-5.1)
[2019-05-14] MEDS: CEFAZOLIN 500 MG in SYRINGE 0 ML IV SCH (22:19)
[2019-05-15] MEDS: LACTATED RINGER'S 1,000 ML IV SCH ×3 (00:40→20:12)
[2019-05-15] MEDS ORDERED: DiphenhydrAMINE HCL 50 MG/ML VIAL IV SCH (06:00)
[2019-05-15] MEDS: ACETAMINOPHEN 500 MG TAB PO SCH ×3 (06:13→22:43)
[2019-05-15 06:58] LABS: Hematocrit (blood only) 21.8 % (37-47); Hemoglobin 6.8 g/dL (12.0-16.0); Mean Corpuscular Hemoglobin 32.1 pg (25-34); Mean Corpuscular Hgb Conc 31.2 g/dL (32-36); Mean Corpuscular Volume 102.8 fL (80-100); Platelet Count 167 K/uL (130-400); RDW Coefficient of Variation 17.1 % (11.5-14.5); RDW Standard Deviation 63.9 fL (36.4-46.3); Red Blood Count 2.12 M/uL (4.2-5.4); White Blood Count 12.97 K/uL (4.8-10.8)
[2019-05-15] MEDS ORDERED: SODIUM CHLORIDE 0.9% 250 ML IV PRN (07:25)
[2019-05-15 07:32] LABS: BUN Creatinine Ratio 20.4 (10-20); Creatinine Clr Calc Pharmacy 22.4 ml/min; Est GFR (African American) 30.1; Est GFR (Non-African American) 25.9; Potassium 4.7 mmol/L (3.5-5.1)
[2019-05-15] MEDS: METOPROLOL SUCC 25MG EXT REL TAB PO SCH ×2 (07:50→20:08)
[2019-05-15] MEDS: AMLODIPINE BESYLATE 5 MG TAB PO SCH (07:50)
[2019-05-15] MEDS: FERROUS GLUCONATE 324 MG TAB PO SCH ×2 (07:53→16:25)
[2019-05-15] MEDS: CITALOPRAM 40 MG TAB PO SCH (07:53)
[2019-05-15] MEDS: ASPIRIN 81 MG ECTAB PO SCH ×2 (07:54→20:08)
[2019-05-15] MEDS: allopurinoL 100 MG TAB PO SCH (07:54)
[2019-05-15] MEDS: MULTIVITAMIN TAB PO SCH (07:54)
[2019-05-15] MEDS: OXYBUTYNIN CHLORIDE 5 MG TAB PO SCH ×2 (07:54→20:09)
[2019-05-15] MEDS: DOCUSATE SODIUM 100 MG CAP PO SCH ×2 (07:54→20:12)
[2019-05-15] MEDS: SIMVASTATIN 40 MG TAB PO SCH (07:54)
[2019-05-15] MEDS ORDERED: NON-FORMULARY MEDICATION (Multivitamin 1 CAP) PO SCH (09:00)
[2019-05-15] MEDS: CEFAZOLIN 500 MG in SYRINGE 0 ML IV SCH ×2 (09:34→22:42)
--- NOTE | 2019-05-15 11:01 | Orthopedic Progress Note ---
Date of Service May 15, 2019 Assessment & Plan (1) Seroma after procedure: Postop day 1 status post evacuation hematoma right hip Fluid appeared to be a seroma the time of surgery. Cultures were obtained. We will follow cultures Plavix and ASA post op for DVT prophylaxis. Weightbearing as tolerated Hypotension postoperatively. She is currently receiving blood. Appreciate Medicine assistance. (2) History of right hip hemiarthroplasty: (3) Delayed surgical wound healing: Physical Exam Musculoskeletal: Dressings clean dry intact. Sensation is intact distally. Cap refill less than 2 seconds. Leg lengths appear appropriate with appropriate rotation Results & Data Vital Signs (Past 12 Hours) Vital Signs Temp Pulse Pulse Pulse Resp BP BP 05/15/19 09:18 36.8 C 94 H 18 92/63 L 05/15/19 07:50 36.7 C 90 18 92/50 L 05/15/19 06:09 91/61 L 05/15/19 04:00 36.4 C L 101 H 19 97/67 L 05/15/19 03:25 97 H 100/68 05/15/19 02:27 101 H 89/62 L 05/15/19 01:22 100 H 88/57 L 05/15/19 00:34 105 H 85/58 L 05/14/19 23:38 36.3 C L 105 H 20 73/50 L Pulse Ox 05/15/19 09:18 100 05/15/19 07:50 99 05/15/19 06:09 05/15/19 04:00 96 05/15/19 03:25 05/15/19 02:27 05/15/19 01:22 05/15/19 00:34 05/14/19 23:38 100
--- NOTE | 2019-05-15 13:25 | Hospitalist Progress Note ---
Date of Service May 15, 2019 Assessment & Plan (1) Postoperative hypotension: Status post evacuation of right thigh hematoma 0n 05/14 with history of right hip arthroplasty Hypotension postoperatively. Systolic BP's in 80s - 90s postop. Patient appears to be clinically stable and is in no distress. Creatinine elevated compared to baseline; may be dehydrated. No apparent significant postop blood loss, but consider thigh hematoma. Afebrile. No signs / symptoms of sepsis. Hemoglobin dropped down to 6.8-likely secondary to blood loss and administration of intravenous fluid Blood pressure remains on the lower side Will give 2 units of PRBC (2) Dysphagia: Episode of airway obstruction while eating supper. Successful expulsion of large piece of meat after Heimlich maneuver performed by staff. Clear liquid diet. Aspiration precautions. Bedside swallow evaluation by AUDIO SPECIALIST-appreciate input and recommendation (3) A-fib: Rate-controlled with metoprolol. Not anticoagulated because of high fall risk. Heart rate remains under control (4) HTN (hypertension): BP's low postop. Hold parameters for metoprolol and amlodipine. Continue to hold blood pressure medications for now (5) CKD (chronic kidney disease), stage III: CKD III with recent recent baseline creatinine 1.2 - 1.4. Creatinine this evening 1.61. Maintain adequate volume status. Avoid NSAID's if possible. Creatinine has been increased to 1.81 (6) Gout: Continue allopurinol. (7) Dementia: Monitor for delirium. Avoid meds with TIRE SETTER side effects whenever possible. Denies any acute delirium (8) DVT prophylaxis: Per Orthopedics protocol. (9) Encounter for consultation: Thank you for this consultation. We will follow the patient with you during their hospital stay. My cell # is [phone]. You can reach a member of the [facility] Medicine Team 17/02 via pager @ [phone]. Subjective 05/15 The patient was seen and examined in telemetry unit Please status post evacuation of right hip hematoma POD #1 Was noted to have low blood pressure following surgery Complains to have weakness but otherwise stable as of this morning Review of Systems Review of Systems: All systems reviewed and are unremarkable except as noted below Constitutional: + fatigue, + weakness and + anorexia Musculoskeletal: Pain in the right hip Physical Exam Physical Exam: Lying in bed comfortably Constitutional: + ill appearing; no acute distress Eyes: PERRL, conjunctivae normal, anicteric sclerae ENMT: external ear and nose normal, oropharynx normal Mouth: + dentition abnormality (poor dentition) Neck: trachea midline, no thyromegaly Respiratory: normal respiratory effort; no respiratory distress Auscultation: lungs clear to auscultation bilaterally Cardiovascular: Rate/Rhythm: + irregularly irregular Heart Sounds: no gallop, no murmur and no cardiac rub Vessels: no JVD Extremities: normal capillary refill; no calf tenderness and no edema Gastrointestinal (Abdomen): Inspection/Auscultation: abdomen normal to inspection Percussion/Palpation: abdomen soft Musculoskeletal: Head/Neck/Chest: neck supple Extremities: strength 5/5 throughout; no cyanosis and no clubbing Swelling of the right upper thigh at the site of surgery. Minimally tender Skin: no rashes, warm and dry Psychiatric: Orientation: alert, oriented to person and oriented to place; + not oriented x 3 and + not oriented to time (day of week, but not year) Affect: euthymic affect Lymphatic: no cervical lymphadenopathy Results & Data Vital Signs (Past 12 Hours) Vital Signs Temp Pulse Pulse Pulse Resp BP BP 05/15/19 12:08 36.7 C 82 20 91/48 L 05/15/19 09:18 36.8 C 94 H 18 92/63 L 05/15/19 07:50 36.7 C 90 18 92/50 L 05/15/19 06:09 91/61 L 05/15/19 04:00 36.4 C L 101 H 19 97/67 L 05/15/19 03:25 97 H 100/68 05/15/19 02:27 101 H 89/62 L Pulse Ox 05/15/19 12:08 98 05/15/19 09:18 100 05/15/19 07:50 99 05/15/19 06:09 05/15/19 04:00 96 05/15/19 03:25 05/15/19 02:27 Laboratory Results Short CBC 05/14/19 05/15/19 Range/Units 21:34 06:46 WBC 12.97 H (4.8-10.8) K/uL Hgb 8.0 L 6.8 L* (12.0-16.0) g/dL Hct 24.9 L 21.8 L (37-47) % Plt Count 167 (130-400) K/uL BMP 05/14/19 05/15/19 21:34 06:46 Sodium 138 136 Potassium 4.3 4.7 Chloride 109 H 106 Carbon Dioxide 21 22 BUN 33 H 37 H Creatinine 1.61 H 1.81 H Glucose 156 H 121 H Calcium 8.1 L 8.0 L Medications Administered Current Inpatient Medications Acetaminophen (Tylenol) 1,000 mg PO Q8 TIMMY Stop: 06/13/19 21:59 Last Admin: 05/15/19 06:13 Dose: 1,000 mg Documented by: Allopurinol (Zyloprim) 100 mg PO DAILY TIMMY Stop: 06/14/19 08:59 Last Admin: 05/15/19 07:54 Dose: 100 mg Documented by: Amlodipine Besylate (Norvasc) 5 mg PO DAILY TIMMY Stop: 06/14/19 08:59 Last Admin: 05/15/19 07:50 Dose: Not Given Documented by: Aspirin (Ecotrin Ectab) 81 mg PO BID TIMMY Stop: 06/13/19 20:59 Last Admin: 05/15/19 07:54 Dose: 81 mg Documented by: Bisacodyl (Dulcolax) 10 mg NH DAILY PRN PRN Reason: Constipation Stop: 06/13/19 17:42 Cetirizine HCl (Zyrtec) 5 mg PO DAILY PRN PRN Reason: ALLERGY SYMPTOMS Stop: 06/13/19 18:29 Citalopram Hydrobromide (Celexa) 40 mg PO DAILY TIMMY Stop: 06/14/19 08:59 Last Admin: 05/15/19 07:53 Dose: 40 mg Documented by: Clopidogrel Bisulfate (Plavix) 75 mg PO DAILY TIMMY Stop: 06/15/19 08:59 Diphenhydramine HCl (Benadryl) 25 mg IV PRE-TREAT TIMMY Stop: 05/15/19 21:00 Last Admin: 05/15/19 09:16 Dose: 25 mg Documented by: Docusate Sodium (Colace) 100 mg PO BID TIMMY Stop: 06/13/19 20:59 Last Admin: 05/15/19 07:54 Dose: 100 mg Documented by: Ferrous Gluconate (Ferrous Gluconate) 324 mg PO BIDM TIMMY Stop: 06/13/19 17:42 Last Admin: 05/15/19 07:53 Dose: 324 mg Documented by: Folic Acid (Folvite) 1 mg PO Q2D@0900 [facility] Stop: 06/13/19 17:42 Last Admin: 05/14/19 19:31 Dose: 1 mg Documented by: Hydromorphone HCl (Dilaudid) 0.5 mg IV Q4H PRN PRN Reason: Pain Stop: 05/28/19 17:42 Cefazolin Sodium 500 mg/ (Syringe) 3.75 mls @ 2.5 mls/min IV Q12H [facility] Stop: 05/24/19 21:59 Last Admin: 05/15/19 09:34 Dose: 2.5 mls/min Documented by: Lactated Ringer's (Lr) 1,000 mls @ 150 mls/hr IV .[id number] [facility] Stop: 06/14/19 00:22 Last Infusion: 05/15/19 09:34 Dose: 0 mls/hr Documented by: Sodium Chloride (Nss) 250 mls @ 15 mls/hr IV .[id number] PRN PRN Reason: For Transfusion Stop: 06/14/19 07:24 Magnesium Hydroxide (Milk Of Magnesia) 30 ml PO Q6H PRN PRN Reason: Constipation Stop: 06/13/19 17:42 Metoclopramide HCl (Reglan) 10 mg IV Q6H PRN PRN Reason: Nausea And Vomiting Stop: 06/13/19 17:42 Metoprolol Succinate (Toprol Xl) 25 mg PO BID [facility] Stop: 06/14/19 08:59 Last Admin: 05/15/19 07:50 Dose: Not Given Documented by: Multivitamins (Multivitamin Tab) 1 tab PO QAM [facility] Stop: 06/14/19 08:59 Last Admin: 05/15/19 07:54 Dose: 1 tab Documented by: Naloxone HCl (Narcan) 0.1 mg IV Q5M PRN PRN Reason: Oversedation/Resp Depression Stop: 06/13/19 17:42 Ondansetron HCl (Zofran) 4 mg IV Q6H PRN PRN Reason: Nausea And Vomiting Stop: 06/13/19 17:42 Oxybutynin Chloride (Ditropan) 5 mg PO BID [facility] Stop: 06/13/19 20:59 Last Admin: 05/15/19 07:54 Dose: 5 mg Documented by: Oxycodone HCl (Roxicodone Immediate Rel) 5 - 10 mg PO Q4H PRN PRN Reason: Pain Stop: 05/28/19 17:42 Polyethylene Glycol (Miralax Powder Packet) 17 gm PO DAILY PRN PRN Reason: constipation Stop: 06/13/19 17:42 Sennosides (Senokot) 17.2 mg PO [facility] Stop: 06/13/19 20:59 Last Admin: 05/14/19 20:30 Dose: 17.2 mg Documented by: Simvastatin (Zocor) 40 mg PO DAILY TIMMY Stop: 06/14/19 08:59 Last Admin: 05/15/19 07:54 Dose: 40 mg Documented by:
[2019-05-15] MEDS: SENNA 8.6 MG TAB PO SCH (20:09)
[2019-05-16] MEDS: LACTATED RINGER'S 1,000 ML IV SCH ×6 (02:52→21:23)
[2019-05-16 07:14] LABS: Basophils # (auto) 0.01 K/uL (0-0.2); Basophils % (auto) 0.1 %; Eosinophils # (auto) 0.02 K/uL (0-0.5); Eosinophils % (auto) 0.2 %; Hemoglobin 8.3 g/dL (12.0-16.0); Immature Granulocytes # (auto) 0.03 K/uL (0.00-0.02); Immature Granulocytes % (auto) 0.3 %; Lymphocytes # (auto) 2.31 K/uL (1.2-3.4); Lymphocytes % (auto) 26.8 %; Mean Corpuscular Hemoglobin 32.4 pg (25-34); Mean Corpuscular Hgb Conc 33.2 g/dL (32-36); Mean Corpuscular Volume 97.7 fL (80-100); Mean Platelet Volume 9.2 fL (7.4-10.4); Monocytes # (auto) 0.58 K/uL (0.11-0.59); Monocytes % (auto) 6.7 %; Neutrophils # (auto) 5.66 K/uL (1.4-6.5); Neutrophils % (auto) 65.9 %; Platelet Count 140 K/uL (130-400); RDW Coefficient of Variation 18.5 % (11.5-14.5); RDW Standard Deviation 66.2 fL (36.4-46.3); Red Blood Count 2.56 M/uL (4.2-5.4); White Blood Count 8.61 K/uL (4.8-10.8)
[2019-05-16 07:49] LABS: BUN Creatinine Ratio 21.2 (10-20); Calcium 7.8 mg/dl (8.5-10.1); Creatinine Clr Calc Pharmacy 19.8 ml/min; Est GFR (African American) 25.7; Est GFR (Non-African American) 22.2; Magnesium 1.8 mg/dl (1.8-2.4); Phosphorus 3.5 mg/dl (2.5-4.9); Potassium 4.4 mmol/L (3.5-5.1)
[2019-05-16] MEDS: METOPROLOL SUCC 25MG EXT REL TAB PO SCH ×2 (08:41→20:37)
[2019-05-16] MEDS: SIMVASTATIN 40 MG TAB PO SCH (08:41)
[2019-05-16] MEDS: ACETAMINOPHEN 500 MG TAB PO SCH ×3 (08:41→21:23)
[2019-05-16] MEDS: MULTIVITAMIN TAB PO SCH (08:42)
[2019-05-16] MEDS: CLOPIDOGREL BISULFATE 75 MG TAB PO SCH (08:42)
[2019-05-16] MEDS: ASPIRIN 81 MG ECTAB PO SCH ×2 (08:42→20:37)
[2019-05-16] MEDS: allopurinoL 100 MG TAB PO SCH (08:42)
[2019-05-16] MEDS: OXYBUTYNIN CHLORIDE 5 MG TAB PO SCH ×2 (08:42→20:37)
[2019-05-16] MEDS: FERROUS GLUCONATE 324 MG TAB PO SCH ×2 (08:42→16:10)
[2019-05-16] MEDS: CITALOPRAM 40 MG TAB PO SCH (08:42)
[2019-05-16] MEDS: AMLODIPINE BESYLATE 5 MG TAB PO SCH (08:42)
[2019-05-16] MEDS: FOLIC ACID 1 MG TAB PO SCH (08:42)
[2019-05-16] MEDS: DOCUSATE SODIUM 100 MG CAP PO SCH ×2 (08:44→20:37)
[2019-05-16] MEDS: CEFAZOLIN 500 MG in SYRINGE 0 ML IV SCH ×2 (08:46→21:23)
--- NOTE | 2019-05-16 09:30 | Orthopedic Progress Note ---
Date of Service May 16, 2019 Assessment & Plan (1) Seroma after procedure: Postop day 2 status post evacuation hematoma right hip Fluid appeared to be a seroma the time of surgery. Hip joint not entered. Cultures as noted above. Infectious disease consult placed. Plavix and ASA post op for DVT prophylaxis. Weightbearing as tolerated Medical management per [facility] service (2) History of right hip hemiarthroplasty: (3) Delayed surgical wound healing: Subjective Patient currently sitting up in bed. Awake and alert. Physical therapist is present and getting ready to work with the patient. States she feels well. Pain is controlled. No overt complaints at this time. Hemovac drain was removed this morning. Physical Exam Physical Exam: Prevena external wound VAC is intact and functioning. No overt drainage in the collection canister. No erythema around the edges of the dressing. Thigh is mildly swollen but soft calves are soft and nontender. Neurovascular is intact. Results & Data Vital Signs (Past 12 Hours) Vital Signs Temp Pulse Pulse Pulse Resp BP Pulse Ox 05/16/19 07:52 36.7 C 85 19 116/73 97 05/16/19 04:10 36.4 C L 89 16 124/77 97 05/15/19 23:40 99 H 05/15/19 23:18 37.0 C 78 18 103/65 100 05/15/19 22:48 106/65 [place] [address] / Director: Lucio Abraham M.D. Clinical Laboratory Report Name: RACHELLE HOPKINS Acct: [id number] Status: ADM IN : 1940 [facility] Date: 05/14/19 Age: 78 Sex: F Dis Date: Loc: Telemetry [address] [place] [address] Rm/Bed: S241-2 Spec: [id number] Collected: 05/14/19-UNK Received: 05/14/19-[address]: Trev Gupta D.O. Source: Hip,Right OV Order: Ordered: Aer/Isa Cult/Sm Comments: Reason for Exam surgical Comment with sensitivity Procedure Result Verified Site Gram Stain Final 05/15/19 Gram Stain Result Few WBCs Seen No Organisms Seen Aero/Isa Cult Preliminary 05/15/19-1242 Organism 1 Corynebacterium species Quantity Rare Sens No Sensitivities to Follow
--- NOTE | 2019-05-16 12:45 | Hospitalist Progress Note ---
Date of Service May 16, 2019 Assessment & Plan (1) Postoperative hypotension: Status post evacuation of right thigh hematoma 0n 05/14 with history of right hip arthroplasty Hypotension postoperatively. Systolic BP's in 80s - 90s postop. Patient appears to be clinically stable and is in no distress. Creatinine elevated compared to baseline; may be dehydrated. No apparent significant postop blood loss, but consider thigh hematoma. Afebrile. No signs / symptoms of sepsis. Hemoglobin dropped down to 6.8-likely secondary to blood loss and administration of intravenous fluid Blood pressure remains on the lower side Will give 2 units of PRBC Hemoglobin went up to more than 8.0 and blood pressure has been more than 100 systolic Clinically a lot better She can be moved to medical floor (2) Dysphagia: Episode of airway obstruction while eating supper. Successful expulsion of large piece of meat after Heimlich maneuver performed by staff. Clear liquid diet. Aspiration precautions. Bedside swallow evaluation by PUBLIC HEALTH TEACHER-appreciate input and recommendation Denies any problem with swallowing (3) A-fib: Rate-controlled with metoprolol. Not anticoagulated because of high fall risk. Heart rate remains under control (4) HTN (hypertension): BP's low postop. Hold parameters for metoprolol and amlodipine. Continue to hold blood pressure medications for now Blood pressure has been stable now (5) CKD (chronic kidney disease), stage III: CKD III with recent recent baseline creatinine 1.2 - 1.4. Creatinine this evening 1.61. Maintain adequate volume status. Avoid NSAID's if possible. Creatinine has been increased to 1.81 Creatinine is minimally worse at 2.06 We will continue cautious amount of intravenous fluid Monitor PRP (6) Gout: Continue allopurinol. (7) Dementia: Monitor for delirium. Avoid meds with ASSISTANT COUNTY ENGINEER side effects whenever possible. Denies any acute delirium (8) DVT prophylaxis: Per Orthopedics protocol. (9) Encounter for consultation: Thank you for this consultation. We will follow the patient with you during their hospital stay. My cell # is [phone]. You can reach a member of the [facility] Medicine Team 17/02 via pager @ [phone]. Subjective 05/15 The patient was seen and examined in telemetry unit Please status post evacuation of right hip hematoma POD #1 Was noted to have low blood pressure following surgery Complains to have weakness but otherwise stable as of this morning 05/16 The patient was seen and examined in telemetry unit She is out of bed on a chair this morning Denies any significant symptoms except some pain in the right hip and upper thigh Her blood pressure seems to be sustaining Review of Systems Review of Systems: All systems reviewed and are unremarkable except as noted below Constitutional: + fatigue, + weakness and + anorexia Musculoskeletal: Pain in the right hip Physical Exam Physical Exam: Sitting on a chair without any distress Constitutional: + ill appearing; no acute distress Eyes: PERRL, conjunctivae normal, anicteric sclerae ENMT: external ear and nose normal, oropharynx normal Mouth: + dentition abnormality (poor dentition) Neck: trachea midline, no thyromegaly Respiratory: normal respiratory effort; no respiratory distress Auscultation: lungs clear to auscultation bilaterally Cardiovascular: Rate/Rhythm: + irregularly irregular Heart Sounds: no gallop, no murmur and no cardiac rub Vessels: no JVD Extremities: normal capillary refill; no calf tenderness and no edema Gastrointestinal (Abdomen): Inspection/Auscultation: abdomen normal to inspection and normal bowel sounds Percussion/Palpation: abdomen soft Musculoskeletal: Head/Neck/Chest: neck supple Extremities: no cyanosis and no clubbing Pain in the right hip and appetite on movement Skin: no rashes, warm and dry Neurologic: no focal motor deficits Psychiatric: Orientation: alert, oriented to person and oriented to place; + not oriented x 3 and + not oriented to time (day of week, but not year) Affect: euthymic affect Lymphatic: no cervical or axillary lymphadenopathy no cervical lymphadenopathy Results & Data Vital Signs (Past 12 Hours) Vital Signs Temp Pulse Pulse Resp BP BP Pulse Ox 05/16/19 11:46 36.5 C 78 18 116/78 95 05/16/19 07:52 36.7 C 85 19 116/73 97 05/16/19 04:10 36.4 C L 89 16 124/77 97 Laboratory Results Short CBC 05/16/19 Range/Units 06:53 WBC 8.61 (4.8-10.8) K/uL Hgb 8.3 L (12.0-16.0) g/dL Hct 25.0 L (37-47) % Plt Count 140 (130-400) K/uL BMP 05/16/19 06:53 Sodium 139 Potassium 4.4 Chloride 109 H Carbon Dioxide 25 BUN 44 H Creatinine 2.06 H Glucose 85 Calcium 7.8 L Medications Administered Current Inpatient Medications Acetaminophen (Tylenol) 1,000 mg PO Q8 [facility] Stop: 06/13/19 21:59 Last Admin: 05/16/19 08:41 Dose: 1,000 mg Documented by: Allopurinol (Zyloprim) 100 mg PO DAILY [facility] Stop: 06/14/19 08:59 Last Admin: 05/16/19 08:42 Dose: 100 mg Documented by: Amlodipine Besylate (Norvasc) 5 mg PO DAILY [facility] Stop: 06/14/19 08:59 Last Admin: 05/16/19 08:42 Dose: 5 mg Documented by: Aspirin (Ecotrin Ectab) 81 mg PO BID [facility] Stop: 06/13/19 20:59 Last Admin: 05/16/19 08:42 Dose: 81 mg Documented by: Bisacodyl (Dulcolax) 10 mg MS DAILY PRN PRN Reason: Constipation Stop: 06/13/19 17:42 Cetirizine HCl (Zyrtec) 5 mg PO DAILY PRN PRN Reason: ALLERGY SYMPTOMS Stop: 06/13/19 18:29 Citalopram Hydrobromide (Celexa) 40 mg PO DAILY [facility] Stop: 06/14/19 08:59 Last Admin: 05/16/19 08:42 Dose: 40 mg Documented by: Clopidogrel Bisulfate (Plavix) 75 mg PO DAILY [facility] Stop: 06/15/19 08:59 Last Admin: 05/16/19 08:42 Dose: 75 mg Documented by: Docusate Sodium (Colace) 100 mg PO BID [facility] Stop: 06/13/19 20:59 Last Admin: 05/16/19 08:44 Dose: 100 mg Documented by: Ferrous Gluconate (Ferrous Gluconate) 324 mg PO BIDM [facility] Stop: 06/13/19 17:42 Last Admin: 05/16/19 08:42 Dose: 324 mg Documented by: Folic Acid (Folvite) 1 mg PO Q2D@0900 [facility] Stop: 06/13/19 17:42 Last Admin: 05/16/19 08:42 Dose: 1 mg Documented by: Hydromorphone HCl (Dilaudid) 0.5 mg IV Q4H PRN PRN Reason: Pain Stop: 05/28/19 17:42 Cefazolin Sodium 500 mg/ (Syringe) 3.75 mls @ 2.5 mls/min IV Q12H [facility] Stop: 05/24/19 21:59 Last Admin: 05/16/19 08:46 Dose: 2.5 mls/min Documented by: Lactated Ringer's (Lr) 1,000 mls @ 150 mls/hr IV .Q6H40M [facility] Stop: 06/14/19 00:22 Last Admin: 05/16/19 08:48 Dose: 150 mls/hr Documented by: Sodium Chloride (Nss) 250 mls @ 15 mls/hr IV .[id number] PRN PRN Reason: For Transfusion Stop: 06/14/19 07:24 Magnesium Hydroxide (Milk Of Magnesia) 30 ml PO Q6H PRN PRN Reason: Constipation Stop: 06/13/19 17:42 Metoclopramide HCl (Reglan) 10 mg IV Q6H PRN PRN Reason: Nausea And Vomiting Stop: 06/13/19 17:42 Metoprolol Succinate (Toprol Xl) 25 mg PO BID [facility] Stop: 06/14/19 08:59 Last Admin: 05/16/19 08:41 Dose: 25 mg Documented by: Multivitamins (Multivitamin Tab) 1 tab PO QAM [facility] Stop: 06/14/19 08:59 Last Admin: 05/16/19 08:42 Dose: 1 tab Documented by: Naloxone HCl (Narcan) 0.1 mg IV Q5M PRN PRN Reason: Oversedation/Resp Depression Stop: 06/13/19 17:42 Ondansetron HCl (Zofran) 4 mg IV Q6H PRN PRN Reason: Nausea And Vomiting Stop: 06/13/19 17:42 Oxybutynin Chloride (Ditropan) 5 mg PO BID [facility] Stop: 06/13/19 20:59 Last Admin: 05/16/19 08:42 Dose: 5 mg Documented by: Oxycodone HCl (Roxicodone Immediate Rel) 5 - 10 mg PO Q4H PRN PRN Reason: Pain Stop: 05/28/19 17:42 Polyethylene Glycol (Miralax Powder Packet) 17 gm PO DAILY PRN PRN Reason: constipation Stop: 06/13/19 17:42 Sennosides (Senokot) 17.2 mg PO HS [facility] Stop: 06/13/19 20:59 Last Admin: 05/15/19 20:09 Dose: 17.2 mg Documented by: Simvastatin (Zocor) 40 mg PO DAILY [facility] Stop: 06/14/19 08:59 Last Admin: 05/16/19 08:41 Dose: 40 mg Documented by:
[2019-05-16] MEDS: SENNA 8.6 MG TAB PO SCH (20:37)
[2019-05-17] MEDS: LACTATED RINGER'S 1,000 ML IV SCH ×3 (03:57→19:15)
[2019-05-17 05:13] LABS: Basophils # (auto) 0.02 K/uL (0-0.2); Basophils % (auto) 0.2 %; Eosinophils # (auto) 0.22 K/uL (0-0.5); Eosinophils % (auto) 2.3 %; Hematocrit (blood only) 25.3 % (37-47); Hemoglobin 8.3 g/dL (12.0-16.0); Immature Granulocytes # (auto) 0.03 K/uL (0.00-0.02); Immature Granulocytes % (auto) 0.3 %; Lymphocytes # (auto) 1.71 K/uL (1.2-3.4); Lymphocytes % (auto) 18.1 %; Mean Corpuscular Hemoglobin 32.3 pg (25-34); Mean Corpuscular Hgb Conc 32.8 g/dL (32-36); Mean Corpuscular Volume 98.4 fL (80-100); Mean Platelet Volume 9.4 fL (7.4-10.4); Monocytes # (auto) 0.56 K/uL (0.11-0.59); Monocytes % (auto) 5.9 %; Neutrophils # (auto) 6.92 K/uL (1.4-6.5); Neutrophils % (auto) 73.2 %; Platelet Count 143 K/uL (130-400); RDW Coefficient of Variation 18.2 % (11.5-14.5); RDW Standard Deviation 64.6 fL (36.4-46.3); Red Blood Count 2.57 M/uL (4.2-5.4); White Blood Count 9.46 K/uL (4.8-10.8)
[2019-05-17 05:38] LABS: BUN Creatinine Ratio 22.3 (10-20); Calcium 7.9 mg/dl (8.5-10.1); Creatinine Clr Calc Pharmacy 26.9 ml/min; Est GFR (African American) 37.1; Magnesium 1.7 mg/dl (1.8-2.4); Potassium 4.2 mmol/L (3.5-5.1)
[2019-05-17] MEDS: ACETAMINOPHEN 500 MG TAB PO SCH ×3 (06:10→20:20)
[2019-05-17] MEDS: SIMVASTATIN 40 MG TAB PO SCH (08:36)
[2019-05-17] MEDS: allopurinoL 100 MG TAB PO SCH (08:36)
[2019-05-17] MEDS: CITALOPRAM 40 MG TAB PO SCH (08:37)
[2019-05-17] MEDS: MULTIVITAMIN TAB PO SCH (08:37)
[2019-05-17] MEDS: CLOPIDOGREL BISULFATE 75 MG TAB PO SCH (08:37)
[2019-05-17] MEDS: DOCUSATE SODIUM 100 MG CAP PO SCH ×2 (08:37→20:20)
[2019-05-17] MEDS: AMLODIPINE BESYLATE 5 MG TAB PO SCH (08:37)
[2019-05-17] MEDS: OXYBUTYNIN CHLORIDE 5 MG TAB PO SCH ×2 (08:37→20:13)
[2019-05-17] MEDS: FERROUS GLUCONATE 324 MG TAB PO SCH ×2 (08:37→16:04)
[2019-05-17] MEDS: METOPROLOL SUCC 25MG EXT REL TAB PO SCH ×2 (08:37→20:17)
[2019-05-17] MEDS: ASPIRIN 81 MG ECTAB PO SCH ×2 (08:37→20:14)
--- NOTE | 2019-05-17 09:59 | Anesthesiology Progress Note ---
Date of Service May 17, 2019 Anesthesia Post Procedure Vital Signs Vital Signs: Temp Pulse Resp BP BP Pulse Ox Pulse Ox 05/17/19 07:18 36.9 C 88 16 133/89 92 05/16/19 23:24 36.9 C 79 17 118/77 90 05/16/19 20:33 77 110/70 05/16/19 18:30 36.9 C 77 15 108/75 96 05/16/19 15:29 36.6 C 85 16 102/69 92 05/16/19 13:44 96 05/16/19 13:05 95 05/16/19 11:46 36.5 C 78 18 116/78 95 Notes Mental Status: alert / awake / arousable and participated in evaluation Nausea / Vomiting: adequately controlled Pain: adequately controlled Airway Patency, RR, SpO2: stable & adequate BP & HR: stable & adequate Hydration State: stable & adequate Anesthetic Complications: no major complications apparent and Pt Satisfied with anesthetic care
[2019-05-17] MEDS: CEFAZOLIN 500 MG in SYRINGE 0 ML IV SCH (10:13)
--- NOTE | 2019-05-17 10:50 | Infectious Disease Consult ---
Date of Consultation May 17, 2019 Assessment & Plan (1) Post op infection: will change abx to ertapenem. she is allergic to cipro and would not suggest bactrim in this patient due to ckd. will need 6 weeks IV ertapenem. weekly cbc,cmp,esr. ok for picc line. can follow with ID post d/c. History of Present Illness Attending Physician: Trev Gupta DO pt admitted with worsening infection of right hip. had hip replacement done due to fracture 6 weeks ago. was doing well until recently when she had increased pain and wound opening, was on abx with ortho, being managed as outpt but no significant improvement. decision was made to admit and wash out, this was done on 05/14. OR cultures growing Enterobacter, she is on Ancef. tolerating well. she is oob to chair on my exam, denies post op pain, no f/c. no cp, sob, cough. no abd pain, no n/v/d. santos in place, yellow urine. ESR 36 on admission. wbc 9, creat 1.5 (baseline)no imaging done. ID consulted for abx therapy. Allergies Allergy/AdvReac Type Severity Reaction Status Date / Time Cipro Allergy Unknown unknown Verified 07/17/17 19:21 ciprofloxacin Allergy Unknown unknown Verified 05/14/19 09:32 clindamycin Allergy Unknown unknown Verified 05/14/19 09:32 lisinopril Allergy Unknown unknown Verified 05/14/19 09:32 Home Medications Home Medications Medication Instructions Recorded Confirmed Type acetaminophen 650 mg PO TID PRN 04/02/19 05/14/19 History allopurinol 100 mg PO DAILY 04/02/19 05/14/19 History amlodipine 5 mg PO DAILY 04/02/19 05/14/19 History aspirin 81 mg PO DAILY 04/02/19 05/14/19 History cetirizine 5 mg PO DAILY PRN 04/02/19 05/14/19 History citalopram 40 mg PO DAILY 04/02/19 05/14/19 History clopidogrel [Plavix] 75 mg PO DAILY 04/02/19 05/14/19 History cyanocobalamin (vitamin B-12) 1,000 mcg PO DAILY 04/02/19 05/14/19 History diclofenac sodium 2 g TOPICAL QID 04/02/19 05/14/19 History ferrous gluconate 324 mg PO DAILY 04/02/19 05/14/19 History folic acid 1 mg PO Q2D 04/02/19 05/14/19 History metoprolol succinate 50 mg PO BID 04/02/19 05/14/19 History oxybutynin chloride 5 mg PO BID 04/02/19 05/14/19 History sennosides [senna] 8.6 mg PO HS 04/02/19 05/14/19 History docusate sodium 100 mg PO BID PRN #30 cap 04/07/19 05/14/19 Rx polyethylene glycol 3350 [Miralax] 17 g PO DAILY PRN #30 ea 04/07/19 05/14/19 Rx simvastatin 40 mg PO DAILY 04/22/19 05/14/19 History ascorbic acid (vitamin C) [Vitamin 500 mg PO DAILY 05/13/19 05/14/19 History C] multivitamin 1 cap PO DAILY 05/13/19 05/14/19 History Patient History Medical History Dementia (Chronic) A-fib (Chronic) CVA (cerebral vascular accident) (Chronic) embolism of right cerebellar artery CKD (chronic kidney disease), stage III (Chronic) Gout (Chronic) HTN (hypertension) (Chronic) Depression (Chronic) Dementia (Chronic) Stenosis of right carotid artery (Chronic) Surgical History History of hemiarthroplasty of left hip (Chronic) History of hysterectomy (Chronic) History of hernia repair (Chronic) Family History Mother , childbirth No problems noted. Social History Preferred Language: Romanian Communication Ability: Effective Design Coordinator Required: No Beliefs That Will Affect Care: None marital status: / Current Living Situation: Senior Care Current Living Situation Comment: [facility] Other Information That Helps Us Care for You: No Feels Safe at Home: Yes Safety Concerns: Feels Safe At This Time Smoking Status: Never smoker Do You Dip or Chew Tobacco: No ; Second Hand Exposure: No ; Tobacco Cessation Education Requested by Patient: No Hx Alcohol Use: Yes Alcohol type: beer and wine Hx Substance Use: No Review of Systems Review of Systems: All systems reviewed & are unremarkable except as noted in HPI & below Physical Exam Constitutional: WD/WN, vitals as above Eyes: PERRL, conjunctivae normal, anicteric sclerae ENMT: external ear and nose normal, oropharynx normal Neck: normal visual inspection Respiratory: normal respiratory effort, lungs clear to auscultation Cardiovascular: RRR, no murmur, no edema Gastrointestinal (Abdomen): normal bowel sounds, soft, nontender, no hepatosplenomegaly Musculoskeletal: no cyanosis or clubbing, extremities motor strength 5/5 Skin: no rashes, warm and dry Psychiatric: A+Ox3, euthymic affect Results & Data Vital Signs (Past 12 Hours) Vital Signs Temp Pulse Resp BP BP Pulse Ox 05/17/19 07:18 36.9 C 88 16 133/89 92 05/16/19 23:24 36.9 C 79 17 118/77 90 Laboratory Results Microbiology 05/15/19 12:05 Urine,Indwelling Cath Urine Culture - Preliminary Yeast- ident to follow 05/14/19 Unknown Hip,Right Gram Stain - Final 05/14/19 Unknown Hip,Right Aerobic and Anaerobic Culture - Preliminary Enterobacter cloacae 05/14/19 Unknown Hip,Right Gram Stain - Final 05/14/19 Unknown Hip,Right Aerobic and Anaerobic Culture - Preliminary Corynebacterium species Gram negative bacilli PG Care Time/CCT Total # of Minutes Spent Total Time Spent with Patient: Total time spent is greater than 50% in coordination of care (as documented) at patient's floor/unit and/or counseling patient:
--- NOTE | 2019-05-17 11:11 | Orthopedic Progress Note ---
Date of Service May 17, 2019 Assessment & Plan (1) Seroma after procedure: Postop day 3 status post evacuation hematoma right hip Fluid appeared to be a seroma the time of surgery. Hip joint not entered. Cultures as noted above. Infectious disease consult placed. Recommending 6 weeks IV ertapenem. Will have PICC line placed and social service technician will be able to begin placement. Plavix and ASA post op for DVT prophylaxis. Weightbearing as tolerated Medical management per [facility] service (2) History of right hip hemiarthroplasty: (3) Delayed surgical wound healing: Subjective Patient currently sitting up in bed. Awake and alert. Pain is controlled. No complaints of pain with the right hip. Denies CP, SOB, LH. Physical Exam Constitutional: well developed and well nourished; no acute distress ENMT: external ear and nose normal, oropharynx normal Neck: trachea midline, no thyromegaly Respiratory: normal respiratory effort, lungs clear to auscultation Cardiovascular: Rate/Rhythm: + irregularly irregular Gastrointestinal (Abdomen): normal bowel sounds, soft, nontender, no hepatosplenomegaly Musculoskeletal: Hip: + surgical incision (right hip: Prevena in place and functioning. ); no skin erythema, no ecchymosis, no crepitation with hip ROM and log roll test negative Skin: no rashes, warm and dry Neurologic: normal touch/pain/proprioception Psychiatric: A+Ox3, euthymic affect Lymphatic: no cervical or axillary lymphadenopathy Results & Data Vital Signs (Past 12 Hours) Vital Signs Temp Pulse Resp BP BP Pulse Ox 05/17/19 07:18 36.9 C 88 16 133/89 92 05/16/19 23:24 36.9 C 79 17 118/77 90
[2019-05-17] MEDS: ERTAPENEM SODIUM 500 MG in SODIUM CHLORIDE 0.9% 50 ML IV SCH (12:53)
--- NOTE | 2019-05-17 15:28 | Hospitalist Progress Note ---
Date of Service May 17, 2019 Assessment & Plan (1) Postoperative hypotension: Status post evacuation of right thigh hematoma 0n 05/14 with history of right hip arthroplasty Hypotension postoperatively. Systolic BP's in 80s - 90s postop. Patient appears to be clinically stable and is in no distress. Creatinine elevated compared to baseline; may be dehydrated. No apparent significant postop blood loss, but consider thigh hematoma. Afebrile. No signs / symptoms of sepsis. Hemoglobin dropped down to 6.8-likely secondary to blood loss and administration of intravenous fluid Blood pressure remains on the lower side Received 2 units of PRBC Hemoglobin remains a stable following transfusion Clinically not better Noted to have a right hip infection with Enterobacter Has been getting Ancef since surgery Appreciate ID input and recommendation Recommended ertapenem for a total of 6 weeks Advised to have weekly CBC, CMP and ESR as longshe will be on ertapenem (2) Dysphagia: Episode of airway obstruction while eating supper. Successful expulsion of large piece of meat after Heimlich maneuver performed by staff. Clear liquid diet. Aspiration precautions. Bedside swallow evaluation by MACHINE SIZER-appreciate input and recommendation Denies any problem with swallowing (3) A-fib: Rate-controlled with metoprolol. Not anticoagulated because of high fall risk. Heart rate remains under control (4) HTN (hypertension): BP's low postop. Hold parameters for metoprolol and amlodipine. Continue to hold blood pressure medications for now Blood pressure has been stable now (5) CKD (chronic kidney disease), stage III: CKD III with recent recent baseline creatinine 1.2 - 1.4. Creatinine this evening 1.61. Maintain adequate volume status. Avoid NSAID's if possible. Creatinine has been increased to 1.81 Creatinine is minimally worse at 2.06 We will continue cautious amount of intravenous fluid Monitor PRP-renal function has been improving (6) Gout: Continue allopurinol. (7) Dementia: Monitor for delirium. Avoid meds with [employer]QUISTION side effects whenever possible. Denies any acute delirium (8) DVT prophylaxis: Per Orthopedics protocol. (9) Encounter for consultation: Thank you for this consultation. We will follow the patient with you during their hospital stay. My cell # is [phone]. You can reach a member of the [facility] Medicine Team 17/02 via pager @ [phone]. Discharge As per primary care Subjective 05/15 The patient was seen and examined in telemetry unit Please status post evacuation of right hip hematoma POD #1 Was noted to have low blood pressure following surgery Complains to have weakness but otherwise stable as of this morning 05/16 The patient was seen and examined in telemetry unit She is out of bed on a chair this morning Denies any significant symptoms except some pain in the right hip and upper thigh Her blood pressure seems to be sustaining 05/17 The patient was seen and examined in medical floor She has been feeling a lot better Denies any significant symptoms Review of Systems Review of Systems: All systems reviewed and are unremarkable except as noted below Constitutional: + fatigue, + weakness and + anorexia Musculoskeletal: Pain in the right hip Physical Exam Physical Exam: No apparent distress at rest Constitutional: WD/WN, vitals as above + ill appearing; no acute distress Eyes: PERRL, conjunctivae normal, anicteric sclerae ENMT: external ear and nose normal, oropharynx normal Mouth: + dentition abnormality (poor dentition) Neck: trachea midline, no thyromegaly Respiratory: normal respiratory effort, lungs clear to auscultation normal respiratory effort; no respiratory distress Auscultation: lungs clear to auscultation bilaterally Cardiovascular: Rate/Rhythm: + irregularly irregular Heart Sounds: no gallop, no murmur and no cardiac rub Vessels: no JVD Extremities: normal capillary refill; no calf tenderness and no edema Gastrointestinal (Abdomen): Inspection/Auscultation: abdomen normal to inspection and normal bowel sounds Percussion/Palpation: abdomen soft Musculoskeletal: Head/Neck/Chest: neck supple Extremities: no cyanosis and no clubbing Skin: no rashes, warm and dry Neurologic: moves all extremities; no focal motor deficits Psychiatric: Orientation: alert, oriented to person and oriented to place; + not oriented x 3 and + not oriented to time (day of week, but not year) Affect: euthymic affect Lymphatic: no cervical or axillary lymphadenopathy no cervical lymphadenopathy Results & Data Vital Signs (Past 12 Hours) Vital Signs Temp Pulse Resp BP Pulse Ox 05/17/19 07:18 36.9 C 88 16 133/89 92 Laboratory Results Short CBC 05/17/19 Range/Units 04:50 WBC 9.46 (4.8-10.8) K/uL Hgb 8.3 L (12.0-16.0) g/dL Hct 25.3 L (37-47) % Plt Count 143 (130-400) K/uL BMP 05/17/19 04:50 Sodium 139 Potassium 4.2 Chloride 109 H Carbon Dioxide 26 BUN 34 H Creatinine 1.52 H D Glucose 81 Calcium 7.9 L Medications Administered Current Inpatient Medications Acetaminophen (Tylenol) 1,000 mg PO Q8 TIMMY Stop: 06/13/19 21:59 Last Admin: 05/17/19 13:25 Dose: 1,000 mg Documented by: Allopurinol (Zyloprim) 100 mg PO DAILY TIMMY Stop: 06/14/19 08:59 Last Admin: 05/17/19 08:36 Dose: 100 mg Documented by: Amlodipine Besylate (Norvasc) 5 mg PO DAILY [facility] Stop: 06/14/19 08:59 Last Admin: 05/17/19 08:37 Dose: 5 mg Documented by: Aspirin (Ecotrin Ectab) 81 mg PO BID [facility] Stop: 06/13/19 20:59 Last Admin: 05/17/19 08:37 Dose: 81 mg Documented by: Bisacodyl (Dulcolax) 10 mg [place] DAILY PRN PRN Reason: Constipation Stop: 06/13/19 17:42 Cetirizine HCl (Zyrtec) 5 mg PO DAILY PRN PRN Reason: ALLERGY SYMPTOMS Stop: 06/13/19 18:29 Citalopram Hydrobromide (Celexa) 40 mg PO DAILY [facility] Stop: 06/14/19 08:59 Last Admin: 05/17/19 08:37 Dose: 40 mg Documented by: Clopidogrel Bisulfate (Plavix) 75 mg PO DAILY [facility] Stop: 06/15/19 08:59 Last Admin: 05/17/19 08:37 Dose: 75 mg Documented by: Docusate Sodium (Colace) 100 mg PO BID [facility] Stop: 06/13/19 20:59 Last Admin: 05/17/19 08:37 Dose: 100 mg Documented by: Ferrous Gluconate (Ferrous Gluconate) 324 mg PO BIDM [facility] Stop: 06/13/19 17:42 Last Admin: 05/17/19 08:37 Dose: 324 mg Documented by: Folic Acid (Folvite) 1 mg PO Q2D@0900 [facility] Stop: 06/13/19 17:42 Last Admin: 05/16/19 08:42 Dose: 1 mg Documented by: Hydromorphone HCl (Dilaudid) 0.5 mg IV Q4H PRN PRN Reason: Pain Stop: 05/28/19 17:42 Lactated Ringer's (Lr) 1,000 mls @ 150 mls/hr IV .Q6H40M [facility] Stop: 06/14/19 00:22 Last Infusion: 05/17/19 13:28 Dose: 150 mls/hr Documented by: Sodium Chloride (Nss) 250 mls @ 15 mls/hr IV .[id number] PRN PRN Reason: For Transfusion Stop: 06/14/19 07:24 Ertapenem 500 mg/ Sodium (Chloride) 55 mls @ 100 mls/hr IV Q24H [facility]; Protocol Stop: 06/28/19 11:59 Last Infusion: 05/17/19 13:28 Dose: Infused Documented by: Magnesium Hydroxide (Milk Of Magnesia) 30 ml PO Q6H PRN PRN Reason: Constipation Stop: 06/13/19 17:42 Metoclopramide HCl (Reglan) 10 mg IV Q6H PRN PRN Reason: Nausea And Vomiting Stop: 06/13/19 17:42 Metoprolol Succinate (Toprol Xl) 25 mg PO BID [facility] Stop: 06/14/19 08:59 Last Admin: 05/17/19 08:37 Dose: 25 mg Documented by: Multivitamins (Multivitamin Tab) 1 tab PO QAM [facility] Stop: 06/14/19 08:59 Last Admin: 05/17/19 08:37 Dose: 1 tab Documented by: Naloxone HCl (Narcan) 0.1 mg IV Q5M PRN PRN Reason: Oversedation/Resp Depression Stop: 06/13/19 17:42 Ondansetron HCl (Zofran) 4 mg IV Q6H PRN PRN Reason: Nausea And Vomiting Stop: 06/13/19 17:42 Oxybutynin Chloride (Ditropan) 5 mg PO BID [facility] Stop: 06/13/19 20:59 Last Admin: 05/17/19 08:37 Dose: 5 mg Documented by: Oxycodone HCl (Roxicodone Immediate Rel) 5 - 10 mg PO Q4H PRN PRN Reason: Pain Stop: 05/28/19 17:42 Polyethylene Glycol (Miralax Powder Packet) 17 gm PO DAILY PRN PRN Reason: constipation Stop: 06/13/19 17:42 Sennosides (Senokot) 17.2 mg PO [facility] Stop: 06/13/19 20:59 Last Admin: 05/16/19 20:37 Dose: 17.2 mg Documented by: Simvastatin (Zocor) 40 mg PO DAILY [facility] Stop: 06/14/19 08:59 Last Admin: 05/17/19 08:36 Dose: 40 mg Documented by:
[2019-05-17] MEDS: SENNA 8.6 MG TAB PO SCH (20:12)
[2019-05-17 23:33] VITALS: TEMP 99.1
[2019-05-18] MEDS: LACTATED RINGER'S 1,000 ML IV SCH ×2 (02:07→08:54)
[2019-05-18 05:52] LABS: Basophils # (auto) 0.01 K/uL (0-0.2); Basophils % (auto) 0.1 %; Eosinophils # (auto) 0.26 K/uL (0-0.5); Eosinophils % (auto) 2.7 %; Hematocrit (blood only) 26.1 % (37-47); Hemoglobin 8.5 g/dL (12.0-16.0); Immature Granulocytes # (auto) 0.02 K/uL (0.00-0.02); Immature Granulocytes % (auto) 0.2 %; Lymphocytes # (auto) 1.89 K/uL (1.2-3.4); Lymphocytes % (auto) 19.7 %; Mean Corpuscular Hemoglobin 32.1 pg (25-34); Mean Corpuscular Hgb Conc 32.6 g/dL (32-36); Mean Corpuscular Volume 98.5 fL (80-100); Mean Platelet Volume 9.7 fL (7.4-10.4); Monocytes # (auto) 0.54 K/uL (0.11-0.59); Monocytes % (auto) 5.6 %; Neutrophils # (auto) 6.87 K/uL (1.4-6.5); Neutrophils % (auto) 71.7 %; Platelet Count 169 K/uL (130-400); RDW Coefficient of Variation 17.6 % (11.5-14.5); RDW Standard Deviation 61.8 fL (36.4-46.3); Red Blood Count 2.65 M/uL (4.2-5.4); White Blood Count 9.59 K/uL (4.8-10.8)
[2019-05-18] MEDS: ACETAMINOPHEN 500 MG TAB PO SCH ×2 (06:18→13:15)
[2019-05-18 06:33] LABS: BUN Creatinine Ratio 19.8 (10-20); Creatinine Clr Calc Pharmacy 35.5 ml/min; Est GFR (Non-African American) 44.9; Potassium 3.5 mmol/L (3.5-5.1)
[2019-05-18] MEDS: FERROUS GLUCONATE 324 MG TAB PO SCH (07:42)
[2019-05-18] MEDS: allopurinoL 100 MG TAB PO SCH (08:14)
[2019-05-18] MEDS: DOCUSATE SODIUM 100 MG CAP PO SCH (08:14)
[2019-05-18] MEDS: SIMVASTATIN 40 MG TAB PO SCH (08:14)
[2019-05-18] MEDS: MULTIVITAMIN TAB PO SCH (08:15)
[2019-05-18] MEDS: FOLIC ACID 1 MG TAB PO SCH (08:15)
[2019-05-18] MEDS: OXYBUTYNIN CHLORIDE 5 MG TAB PO SCH (08:15)
[2019-05-18] MEDS: CLOPIDOGREL BISULFATE 75 MG TAB PO SCH (08:15)
[2019-05-18] MEDS: CITALOPRAM 40 MG TAB PO SCH (08:15)
[2019-05-18] MEDS: ASPIRIN 81 MG ECTAB PO SCH (08:15)
[2019-05-18] MEDS: AMLODIPINE BESYLATE 5 MG TAB PO SCH (08:19)
[2019-05-18 08:20] VITALS: BP 130/79; PULSE 80; O2SAT 96
[2019-05-18] MEDS: METOPROLOL SUCC 25MG EXT REL TAB PO SCH (08:20)
--- NOTE | 2019-05-18 08:47 | Hospitalist Progress Note ---
Date of Service May 18, 2019 Assessment & Plan (1) Postoperative hypotension: Status post evacuation of right thigh hematoma 0n 05/14 with history of right hip arthroplasty Noted to have a right hip infection with Enterobacter Was initially receiving Ancef since surgery. ID consulted and was changed to ertapenem. ID recommends ertapenem for a total of 6 weeks. Pt awaiting PICC line placement. It is advised pt has weekly CBC, CMP and ESR while on ertapenem Had Hypotension postoperatively with SBPs in 80's-90's. Has since improved and BP stable and home BP's have been resumed. Has been afebrile. No signs or symptoms of sepsis. Hgb dropped to 6.8 on 05/15/19. Probable secondary to acute blood loss anemia, thigh hematoma. Received 2 units of PRBC on 05/16/19. Since Hgb stable Today Hgb: 8.5. Creatinine elevated post-op with high of 2 on 05/16/19. Received IVF. Today Cr: 1.15. Baseline Cr is 1.2-1.4 Today pt appears stable. (2) Dysphagia: Had Episode of airway obstruction while eating dinner on 05/14/19. Had Successful expulsion of large piece of meat after Heimlich maneuver performed by staff. Bedside swallow evaluation by PAN SHOVER- recommended set up meal tray and ensure small bolus size. Was on liquid diet and now tolerating regular diet. Aspiration precautions. (3) A-fib: Rate-controlled with metoprolol. Not anticoagulated because of high fall risk. Heart rate remains under control (4) HTN (hypertension): Had Hypotension postoperatively with SBPs in 80's-90's. Has since improved and BP stable and home BP's have been resumed. Continue metoprolol and amlodipine with hold parameters (5) CKD (chronic kidney disease), stage III: CKD III, Recent baseline creatinine 1.2 - 1.4. Had CASSIE with Cr high of 2.06 on 05/16/19. Creatinine has improved Today Cr: 1.15 Had received IVF. Avoid NSAIDs and other nephrotoxic agents if possible. Monitor renal functions (6) Gout: Continue allopurinol. (7) Dementia: Monitor for delirium. No acute delirium noted throughout hospitalization. Avoid meds with F[employer]ER side effects whenever possible. (8) DVT prophylaxis: ASA 81mg BID, SCDs per ortho Disposition per ortho. Will need follow up with PCP upon discharge. Pt was seen and care coordinated with Dr Castro. See addendum Supervising Physician Co-Signing Physician Notes Attending addendum The patient was seen and examined She has been feeling a lot better following blood transfusion Has been antibiotic for infection in the right thigh wound On examination Hemodynamically stable Chest-clear Heart S1-S2 regular-, Abdomen-benign Extremities-negative for any edema Labs and imaging studies noted Agree with assessment and plan as outlined above by ILENE Ortega Dr Subjective Pt seen and examined. Sitting up in bed eating breakfast. Reports doing well today. Denies pain currently. Eating and drinking well with no nausea or vomiting. Has Chiu catheter in place. Reports BM yesterday. Denies fever/chills, SHEA, dizziness, CP, SOB, palpitations, cough, sore throat, recurrent choking, abdominal pain, paresthesias, extremity edema, rashes. Review of Systems Review of Systems: All systems reviewed & are unremarkable except as noted in HPI & below Physical Exam Physical Exam: General: no distress, WDWN Head: normocephalic, atraumatic Eyes: conjunctiva non-injected, anicteric ENT: normal inspection external ears, nose, mucous membranes moist Neck: supple, trachea midline Lungs: clear, no respiratory distress, no wheezing/rhonchi/rales CV: irregularly irregular, no murmur, no pretibial edema Abd: normal BS, soft, non-tender Ext: Right hip: +dressing, wound vac in place. no cyanosis, no calf tenderness, pedal pushes and pulls intact Neuro: Alert, oriented to person, place, knows month, no focal deficits noted, normal affect Skin: warm, dry Results & Data Vital Signs (Past 12 Hours) Vital Signs Temp Pulse Resp BP BP Pulse Ox 05/18/19 08:19 37.3 C 80 14 130/79 96 05/18/19 07:05 37.2 C 84 18 128/76 93 05/17/19 23:32 37.3 C 85 16 118/73 95 Laboratory Results Short CBC 05/14/19 05/15/19 05/16/19 Range/Units 21:34 06:46 06:53 WBC (4.8-10.8) K/uL Hgb (12.0-16.0) g/dL Hct (37-47) % Plt Count (130-400) K/uL Potassium 4.3 4.7 4.4 (3.5-5.1) mmol/L Creatinine 1.61 H 1.81 H 2.06 H (0.6-1.2) mg/dl 05/17/19 05/18/19 05/18/19 Range/Units 04:50 05:20 05:20 WBC 9.59 (4.8-10.8) K/uL Hgb 8.5 L (12.0-16.0) g/dL Hct 26.1 L (37-47) % Plt Count 169 (130-400) K/uL Potassium 4.2 3.5 D (3.5-5.1) mmol/L Creatinine 1.52 H D 1.15 D (0.6-1.2) mg/dl BMP 05/18/19 05:20 Sodium 137 Potassium 3.5 D Chloride 106 Carbon Dioxide 28 BUN 23 H Creatinine 1.15 D Glucose 85 Calcium 8.0 L
--- NOTE | 2019-05-18 09:44 | Orthopedic Progress Note ---
Date of Service May 18, 2019 Assessment & Plan (1) Post op infection: 78 yo female stable s/p I&D right hip(superficial), on IV Ertapenem, awaiting PICC line prior to d/c 1. Med management- PICC line and 6 weeks IV abx 2. DVT prophylaxis- ASA, SCDs 3. PT/OT 4. D/C planning- return to [facility] when stable Subjective Pt resting in bed, pain controlled, denies complaints, awaiting PICC line, unable to get in last evening Physical Exam Physical Exam: Prevena in place, thigh swollen but reasonably soft, toes mobile, NVI Results & Data Vital Signs (Past 12 Hours) Vital Signs Temp Pulse Resp BP BP Pulse Ox 05/18/19 08:19 37.3 C 80 14 130/79 96 05/18/19 07:05 37.2 C 84 18 128/76 93 05/17/19 23:32 37.3 C 85 16 118/73 95 Laboratory Results 05/18/19 05/18/19 Range/Units 05:20 05:20 WBC 9.59 (4.8-10.8) K/uL RBC 2.65 L (4.2-5.4) M/uL Hgb 8.5 L (12.0-16.0) g/dL Hct 26.1 L (37-47) % MCV 98.5 (80-100) fL MCH 32.1 (25-34) pg MCHC 32.6 (32-36) g/dL RDW Std Deviation 61.8 H (36.4-46.3) fL RDW Coeff of Marcia 17.6 H (11.5-14.5) % Plt Count 169 (130-400) K/uL MPV 9.7 (7.4-10.4) fL Immature Gran % (Auto) 0.2 % Neut % (Auto) 71.7 % Lymph % (Auto) 19.7 % [place] % (Auto) 5.6 % Eos % (Auto) 2.7 % Baso % (Auto) 0.1 % Immature Gran # (Auto) 0.02 (0.00-0.02) K/uL Neut # (Auto) 6.87 H (1.4-6.5) K/uL Lymph # (Auto) 1.89 (1.2-3.4) K/uL [place] # (Auto) 0.54 (0.11-0.59) K/uL Eos # (Auto) 0.26 (0-0.5) K/uL Baso # (Auto) 0.01 (0-0.2) K/uL Sodium 137 (136-145) mmol/L Potassium 3.5 D (3.5-5.1) mmol/L Chloride 106 (98-107) mmol/L Carbon Dioxide 28 (21-32) mmol/L Anion Gap 3.0 (3-11) BUN 23 H (7-18) mg/dl Creatinine 1.15 D (0.6-1.2) mg/dl Est Cr Clr Drug Dosing 35.5 ml/min Est GFR ( Amer) 52.0 Est GFR (Non-Af Amer) 44.9 BUN/Creatinine Ratio 19.8 (10-20) Glucose 85 (70-99) mg/dl Calcium 8.0 L (8.5-10.1) mg/dl
[2019-05-18] MEDS: ERTAPENEM SODIUM 500 MG in SODIUM CHLORIDE 0.9% 50 ML IV SCH (13:19)
--- NOTE | 2019-05-19 17:35 | Discharge Summary ---
DISCHARGE DIAGNOSIS: Infected right hip seroma, nonhealing surgical wound with wound dehiscence status post right hip hemiarthroplasty. SECONDARY DIAGNOSES: History of chronic AFib, history of CVA, CKD stage III, gout, hypertension, depression, right carotid artery stenosis. CONSULTS: Dr. Osborn. COMPLICATIONS: None. PROCEDURES: Evacuation of seroma right hip, irrigation and debridement including skin, fascia and iliotibial band and vastus lateralis muscle by Dr. Gupta on 05/14/2019 with cultures taken. BRIEF HISTORY: As dictated in the history and physical. HOSPITAL SUMMARY: The patient was admitted on the above-noted date and had the above-noted surgery performed, which she tolerated well. Dr. Osborn from the [facility] service was consulted for medical management during her stay. On her first postoperative day, she was feeling somewhat weak but was otherwise without complaints. Dressings were intact. Sensation was intact distally. Cap refill was less than 2 seconds. Leg lengths appeared appropriate. Blood pressures were running somewhat low at 92/63. Hemoglobin had dropped to 6.8 and she was transfused 2 units of PRBCs. Plans were to follow cultures and continue weightbearing as tolerated. Continue PT and OT protocols. [facility] service continued to follow the patient during her stay. By her second postoperative day, she was sitting up in bed, awake and alert. Physical therapist is present and getting ready to work with the patient. She states she feels well. Pain is controlled. No overt complaints at that time. Hemovac drain was removed that morning. Prevena external wound VAC was intact and functioning. She had no overt drainage in the collection canister. No erythema around the edge of the dressing. Thigh is mildly swollen but calves were soft and nontender. Neurovascularly was intact. Vital signs were stable. BP was 116/73. Cultures were showing corynebacterium species at this point in time and infectious disease consult was placed for antibiotic management. She was continued on Plavix and aspirin for DVT prophylaxis and was otherwise remaining stable. She was seen by Dr. Paniagua by 05/17/2019 and had the patient changed from her current antibiotics to ertapenem. The OR cultures also showed Enterobacter and along with a corynebacterium. She was otherwise remaining stable and plans were for 6 weeks of IV ertapenem with weekly CBC, CMP and sed rate. Plans were for PICC line which by 05/18/2019 the IV team was unable to insert and instead went with an ultrasound guided line that would also work for her antibiotics. Case management had been consulted to arrange for her antibiotics at her [facility] facility. She was otherwise remaining stable and by 05/18/2019 her pain was controlled. Prevena was in place and remaining stable and had no overt drainage. Toes were mobile. Neurovascularly intact. Arrangements had been made for her IV antibiotics. She was transferred back to her [facility] facility on 05/18/2019. For further review, please see chart. LABORATORY AND X-RAY DATA: As per chart. DISCHARGE INSTRUCTIONS: The patient was discharged to [facility] facility on 05/18/2019. DIET: Regular. ACTIVITY: Weightbearing as tolerated. Follow current instruction sheets and instructions on the Prevena wound VAC. Plans for IV antibiotics for 6 weeks with lab draws with results to be sent to Dr. Paniagua and Candy. Follow up with Dr. Gupta in 10-14 days from the day of surgery. The patient to call for appointment. DISCHARGE MEDICATIONS: Aspirin 81 mg p.o. b.i.d., ertapenem 500 mg IV daily, Percocet 1-2 tabs p.o. q. 6 hours p.r.n. Resume home meds as listed including Plavix p.o. daily. Stop taking previous acetaminophen and aspirin dosages.
== END 2019-05-18 15:12 | DRG 908 ==
LOC: ASU 08:58 → 3E 16:33 → 2S 23:00 → 3W 05-16 18:28
PROC: M.IDHIP (2019-05-14 11:30)

== ENCOUNTER 2019-05-25 12:03 | Inpatient (IN) ==
[2019-05-25] MEDS ORDERED: SODIUM CHLORIDE 0.9% 1000ML 2,000 ML IV ONE (12:32)
--- NOTE | 2019-05-25 13:23 | XRay Report ---
XR chest 1V portable HISTORY: 78 years-old Female Sepsis acute sepsis COMPARISON: Chest radiograph 04/02/2019 TECHNIQUE: Portable AP view of the chest FINDINGS: Cardiac silhouette is enlarged, unchanged. No overt pulmonary edema. Calcified lymph node inferior to the aortic arch. No pneumothorax. Trace pleural effusions with patchy left greater than right bibasi lar opacities. Degenerative changes of the shoulders and spine. IMPRESSION: 1. Patchy left greater than right bibasilar opacities suggest atelectasis versus pneumonitis. 2. Trace pleural effusions. 3. Cardiomegaly without overt pulmonary edema. The above report was generated using voice recognition software. It may contain grammatical, syntax o r spelling errors. Electronically signed by: Momo Drummond M.D. 05/25/2019 1:22 PM
[2019-05-25 14:11] LABS: Albumin Level 2.2 gm/dl (3.4-5.0); BUN Creatinine Ratio 22.2 (10-20); Creatinine Clr Calc Pharmacy 33.4 ml/min; Est GFR (African American) 49.4; Est GFR (Non-African American) 42.7
[2019-05-25 14:13] LABS: Albumin Globulin Ratio 0.6 (0.9-2); Bilirubin,Total 0.4 mg/dl (0.2-1); Globulin 3.8 gm/dl (2.5-4.0)
[2019-05-25 15:01] LABS: Partial Thromboplastin Time 27.7 Seconds (21.0-31.0); Prothrombin Time 10.7 Seconds (9.0-12.0)
[2019-05-25 15:12] LABS: Basophils # (auto) 0.01 K/uL (0-0.2); Basophils % (auto) 0.1 %; Eosinophils # (auto) 0.23 K/uL (0-0.5); Eosinophils % (auto) 2.3 %; Hematocrit (blood only) 23.7 % (37-47); Hemoglobin 7.6 g/dL (12.0-16.0); Immature Granulocytes # (auto) 0.03 K/uL (0.00-0.02); Immature Granulocytes % (auto) 0.3 %; Lymphocytes # (auto) 1.75 K/uL (1.2-3.4); Lymphocytes % (auto) 17.8 %; Mean Corpuscular Hemoglobin 31.4 pg (25-34); Mean Corpuscular Hgb Conc 32.1 g/dL (32-36); Mean Corpuscular Volume 97.9 fL (80-100); Mean Platelet Volume 8.9 fL (7.4-10.4); Monocytes # (auto) 0.62 K/uL (0.11-0.59); Monocytes % (auto) 6.3 %; Neutrophils # (auto) 7.17 K/uL (1.4-6.5); Neutrophils % (auto) 73.2 %; Platelet Count 296 K/uL (130-400); RDW Coefficient of Variation 16.2 % (11.5-14.5); RDW Standard Deviation 58.5 fL (36.4-46.3); Red Blood Count 2.42 M/uL (4.2-5.4); White Blood Count 9.81 K/uL (4.8-10.8)
[2019-05-25] MEDS ORDERED: PIPERACILLIN/TAZOBACTAM 3.375 GM/115 ML BAG IV STA (15:32)
[2019-05-25] MEDS ORDERED: PIPERACILL/TAZOBAC CONSULT ACTIVE PRN (15:32)
[2019-05-25 15:38] LABS: Appearance Urine Clear (Clear); Bilirubin Urine Negative (Negative); Blood Urine Trace (Negative); Color Urine Yellow; Glucose Urine UA Negative (Negative); Ketones Urine Negative (Negative); Leukocyte Esterase Urine 3+ (Negative); Nitrite Urine Negative (Negative); Protein Urine Trace (Negative); Specific Gravity Urine 1.015 (1.000-1.030); Urobilinogen Urine Negative (Negative)
[2019-05-25 15:40] LABS: Anisocytosis Present
--- NOTE | 2019-05-25 15:40 | XRay Report ---
XR hip RT 2V w pelvis CLINICAL HISTORY: r hip pain COMPARISON: None. DISCUSSION: Bilateral total hip arthroplasties. Could contact between prosthetic and underlying bone bilaterally. Avulsion of the greater trochanter is noted on the right. Circumferential wires are pres ent. No evidence for acetabular protrusion. There is no evidence for soft tissue swelling. IMPRESSION: Anatomic alignment posttotal bilateral hip arthroplasties. The above report was generated using voice recognition software. It may contain grammatical, syntax or spelling errors. Electronically signed by: Juan Jose Cardenas M.D. 05/25/2019 3:39 PM
[2019-05-25 16:01] LABS: Bacteria Urine 2+ (Negative); Epithelial Cell Urine >30 /lpf (0-5); RBC Urine >30 /hpf (0-4); WBC Urine >30 /hpf (0-5)
[2019-05-25] MEDS ORDERED: CEFEPIME 1,000 MG in SYRINGE 0 ML IV STA (16:05)
--- NOTE | 2019-05-25 16:45 | History & Physical Report ---
Date of Service May 25, 2019 Assessment & Plan (1) Draining postoperative wound: Right hip wound growing Enterobacter and corynebacterium. She was placed on ertapenem but is having fevers (101.2 this am per notes) reported mental status changes and intermittent hip drainage. Patient is not able to report accurately on the quality or consistency of the drainage. She denies any pain. Will stop ertapenem at this time and switch to Zosyn for broader coverage. Will reengage with infectious diseases and consult with orthopedics. Repeat hip x- ray reveals appropriate alignment with no evidence for acetabular protrusion. There is no evidence of soft tissue swelling. The incision site is closed and nondraining on my exam. There is no surrounding erythema or other overt signs of infection at this time. She is also not septic and appears clinically well. Cont to monitor clinical response. (2) Anemia: post operative anemia recently requiring two units of pRBCs. Iron studies in am. Cont to monitor. No need for transfusion at this time. (3) Fever: unconfirmed. Reported by staff at [facility], [place]. Cont to monitor for this. (4) UTI (urinary tract infection): Possible bacteremia. Covered with empiric antibiotics as above. Urine culture is pending. Hold oxybutinin while ruling this out. (5) CKD (chronic kidney disease), stage III: At goal, no increase from baseline. Avoid nephrotoxic substances. (6) Depression: cont celexa per home regimen. (7) Cerebrovascular disease: recent stroke during last hospitalization and is high risk for stroke with atrial fibrillation unable to tolerate anticoagulation. No noted deficits. Cont aspirin and plavix for secondary prevention of stroke. (8) Gout: cont home allopurinol. (9) DVT prophylaxis: Heparin Full Code as confirmed with the patient on admission Dispo-pending Ortho and ID recs. DO Viki Anderson Hospitalist History of Present Illness Chief Complaint: "I don't know why I'm here. My hip is draining" Primary Care Provider: [facility] This is an 78-year-old female status post right hip hemiarthroplasty on 04/03/2019 after a right displaced subcapital femoral neck fracture with greater trochanter fracture secondary to mechanical fall. Of note she did have a syncopal episode at that time and was found to have evidence of new stroke on MRI and neurologically neurology evaluation. She is in atrial fibrillation patient that has been taken off Coumadin secondary to bleeding in the past she was continued on antiplatelet therapy and discharged to rehab on 04/07. On 05/13 she was readmitted for a post operative seroma. On 05/14 Dr. Gupta performed an evacuation of the seroma of the right hip with irrigation and debridement including skin hip skin, fascia, iliotibial band, vastus lateralis muscle. Wound dehiscence was seen status post right hemiarthroplasty. Her postoperative course was complicated by acute blood loss anemia on post-op day #1. She received 2 units of packed red blood cells on postoperative day 1. Wound cultures were performed on the surgical seroma and was found to be positive for corynebacterium. Infectious disease was consulted and was placed on ertapenem. She was discharged with a plan for 6 weeks of IV ertapenem. A PICC line was planned for 05/18 which the IV team was unable to insert and she instead underwent an ultrasound-guided line that would work for her antibiotics. She was discharged to the residential facility and continues to receive ertapenem. However, staff has reported fever, change in mental status and persistent drainage of the hip wound and is concerned for persistent postoperative infection. Therefore she was transferred back to the ER for evaluation tonight. She report denies any pain in her hip. She denies any fevers or chills or any other symptoms at this time. Her wound is closed without evidence of drainage and bartolo and sutures are intact. There is no erythema around the surgical site. She is alert and appropriate. She reports doing well in rehab and is a partial weight-bear on her right leg. Allergies Allergy/AdvReac Type Severity Reaction Status Date / Time Cipro Allergy Unknown unknown Verified 07/17/17 19:21 ciprofloxacin Allergy Unknown unknown Verified 05/25/19 14:01 clindamycin Allergy Unknown unknown Verified 05/25/19 14:01 lisinopril Allergy Unknown unknown Verified 05/25/19 14:01 Home Medications Home Medications Medication Instructions Recorded Confirmed Type allopurinol 100 mg PO QAM 04/02/19 05/26/19 History amlodipine 5 mg PO QAM 04/02/19 05/26/19 History citalopram 40 mg PO QAM 04/02/19 05/26/19 History clopidogrel [Plavix] 75 mg PO QAM 04/02/19 05/26/19 History cyanocobalamin (vitamin B-12) 1,000 mcg PO QAM 04/02/19 05/26/19 History diclofenac sodium 2 g TOPICAL QID 04/02/19 05/26/19 History ferrous gluconate 324 mg PO QAM 04/02/19 05/26/19 History folic acid 1 mg PO Q2D 04/02/19 05/26/19 History metoprolol succinate 50 mg PO BID 04/02/19 05/26/19 History oxybutynin chloride 5 mg PO BID 04/02/19 05/26/19 History sennosides [senna] 8.6 mg PO HS 04/02/19 05/26/19 History simvastatin 40 mg PO HS 04/22/19 05/26/19 History ascorbic acid (vitamin C) [Vitamin 500 mg PO BID 05/13/19 05/26/19 History C] multivitamin 1 cap PO QAM 05/13/19 05/26/19 History aspirin [Ecotrin Low Strength] 81 mg PO BID 30 Days #60 tab 05/18/19 05/26/19 Rx oxycodone-acetaminophen [Percocet] 1 - 2 tab PO Q6H PRN #30 tab 05/18/19 05/26/19 Rx acetaminophen [Tylenol] 650 mg PO Q6H PRN 05/25/19 05/26/19 History ertapenem 500 mg IM QAM 05/25/19 05/26/19 History Past Med/Surg History Medical History Dementia (Chronic) A-fib (Chronic) CVA (cerebral vascular accident) (Chronic) embolism of right cerebellar artery CKD (chronic kidney disease), stage III (Chronic) Gout (Chronic) HTN (hypertension) (Chronic) Depression (Chronic) Dementia (Chronic) Stenosis of right carotid artery (Chronic) Surgical History History of hemiarthroplasty of left hip (Chronic) History of hysterectomy (Chronic) History of hernia repair (Chronic) S/P HALEY-BSO Family History Mother , childbirth No problems noted. 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 Physical Exam Physical Exam: CONSTITUTIONAL: WNWD, vitals as above, generally well- appearing EYES: PERRL, normal conjunctivae, no scleral icterus ENT: MMM NECK: trachea midline RESPIRATORY: clear to auscultation bilaterally, no crackles, rales or wheezes, normal respiratory effort CARDIOVASCULAR: regular rate and rhythm, S1 and 2 heard without murmurs, gallops or rubs, no JVD, no peripheral edema GASTROINTESTINAL: normal bowel sounds, soft, nontender, nondistended MUSCULOSKELETAL: strength 5/5 throughout, head is normocephalic and atraumatic, moves all extremities equally. SKIN: warm and dry, surgical incision site is closed and without drainage or erythema. Wound is closed with bartolo and sutures. NEUROLOGIC: No facial palsy, no dysarthria. CN 2-12 grossly intact, normal cognition, no gross focal deficits. PSYCHIATRIC: alert cooperative and oriented to person, place and time. Results & Data Vital Signs (Past 12 Hours) Vital Signs Temp Pulse Pulse Resp BP BP Pulse Ox 05/25/19 16:24 73 18 130/77 99 05/25/19 15:47 79 20 128/67 100 05/25/19 14:40 79 27 H 98 05/25/19 14:30 77 21 100 05/25/19 14:20 83 19 97 05/25/19 14:10 78 17 100 05/25/19 14:01 99 05/25/19 14:00 77 20 111/59 L 98 05/25/19 13:58 78 22 111/64 05/25/19 13:50 82 20 05/25/19 13:40 73 17 05/25/19 13:30 79 28 H 05/25/19 13:20 74 19 05/25/19 13:10 78 16 05/25/19 13:00 76 17 109/71 89 L 05/25/19 12:59 75 21 85 L 05/25/19 12:55 75 22 115/64 90 05/25/19 12:32 91 05/25/19 12:06 36.8 C 78 20 96/58 L 95 Laboratory Results Short CBC 05/25/19 05/25/19 Range/Units 13:40 14:30 WBC 9.81 (4.8-10.8) K/uL Hgb 7.6 L (12.0-16.0) g/dL Hct 23.7 L (37-47) % Plt Count 296 (130-400) K/uL BMP 05/25/19 13:40 Sodium 136 Potassium 3.0 L Chloride 102 Carbon Dioxide 26 BUN 27 H Creatinine 1.20 Glucose 81 Calcium 8.0 L Liver Function 05/25/19 Range/Units 13:40 Total Bilirubin 0.4 (0.2-1) mg/dl AST 18 (15-37) U/L ALT 12 (12-78) U/L Alkaline Phosphatase 90 (45-117) U/L Albumin 2.2 L (3.4-5.0) gm/dl Urine 05/25/19 Range/Units 15:00 Urine Color Yellow Urine Appearance Clear (Clear) Urine pH 6.0 (4.5-7.5) Ur Specific [place] 1.015 (1.000-1.030) Urine Protein Trace H (Negative) Urine Glucose (UA) Negative (Negative) Diagnostic Findings XR hip RT 2V w pelvis CLINICAL HISTORY: r hip pain COMPARISON: None. DISCUSSION: Bilateral total hip arthroplasties. Could contact between prosthetic and underlying bone bilaterally. Avulsion of the greater trochanter is noted on the right. Circumferential wires are present. No evidence for acetabular protrusion. There is no evidence for soft tissue swelling. IMPRESSION: Anatomic alignment posttotal bilateral hip arthroplasties. XR chest 1V portable HISTORY: 78 years-old Female Sepsis acute sepsis COMPARISON: Chest radiograph 04/02/2019 TECHNIQUE: Portable AP view of the chest FINDINGS: Cardiac silhouette is enlarged, unchanged. No overt pulmonary edema. Calcified lymph node inferior to the aortic arch. No pneumothorax. Trace pleural effusions with patchy left greater than right bibasilar opacities. Degenerative changes of the shoulders and spine. IMPRESSION: 1. Patchy left greater than right bibasilar opacities suggest atelectasis versus pneumonitis. 2. Trace pleural effusions. 3. Cardiomegaly without overt pulmonary edema. Code Status & VTE Plan Code Status full code (1) Fever Fever type: unspecified Qualified Code(s): R50.9 - Fever, unspecified (2) Anemia Anemia type: unspecified type Qualified Code(s): D64.9 - Anemia, unspecified
--- NOTE | 2019-05-25 17:13 | Emergency Department Note ---
Entered by Shilpa Bennett acting as a scribe for Jesse Lyles DO History of Present Illness General Chief complaint: Fever Stated complaint: FEVER,RIGHT HIP WOUND INFECTION Source: patient History of Present Illness Provider complaint: right hip pain Onset (ago): day(s) 1 Location: hip and right Pain Consistency: + constant Associated symptoms: + denies other symptoms, + fever/chills and + other (confusion) The patient is an 78 y/o female with a past medical history of dementia, dysphagia, CVA, A-fib, and CKD, who presents to the emergency department from [facility] for evaluation of constant right hip swelling that began the past day. EMS notes that the patient has had intermittent fevers of 101 and confusion. [facility] states the patient fell and broke her hip in March, upon review of the chart she had a washout on 05/14 which grew out enterobacter. She was placed on Ertapenem, and has had fevers of 101 since Friday with inc reased confusion and increased green/yellow drainage from the hip. The patient states that she had surgery on her hip this past month following a fall which was found to be infected at the time. She reports that she is not feeling well and is still having intermittent fevers and intermittent pain in the right hip. She denies urinary symptoms, and any other symptoms. She denies any chest pain shortness of breath. Home Medications Home Medications Medication Instructions Recorded Confirmed Type allopurinol 100 mg PO QAM 04/02/19 05/25/19 History amlodipine 5 mg PO QAM 04/02/19 05/25/19 History citalopram 40 mg PO QAM 04/02/19 05/25/19 History clopidogrel [Plavix] 75 mg PO QAM 04/02/19 05/25/19 History cyanocobalamin (vitamin B-12) 1,000 mcg PO QAM 04/02/19 05/25/19 History diclofenac sodium 2 g TOPICAL QID 04/02/19 05/25/19 History ferrous gluconate 324 mg PO QAM 04/02/19 05/25/19 History folic acid 1 mg PO Q2D 04/02/19 05/25/19 History metoprolol succinate 50 mg PO BID 04/02/19 05/25/19 History oxybutynin chloride 5 mg PO BID 04/02/19 05/25/19 History sennosides [senna] 8.6 mg PO HS 04/02/19 05/25/19 History simvastatin 40 mg PO HS 04/22/19 05/25/19 History ascorbic acid (vitamin C) [Vitamin 500 mg PO BID 05/13/19 05/25/19 History C] multivitamin 1 cap PO QAM 05/13/19 05/25/19 History aspirin [Ecotrin Low Strength] 81 mg PO BID 30 Days #60 tab 05/18/19 05/25/19 Rx oxycodone-acetaminophen [Percocet] 1 - 2 tab PO Q6H PRN #30 tab 05/18/19 05/25/19 Rx acetaminophen [Tylenol] 650 mg PO Q6H PRN 05/25/19 05/25/19 History ertapenem 500 mg IM QAM 05/25/19 05/25/19 History Allergies Allergy/AdvReac Type Severity Reaction Status Date / Time Cipro Allergy Unknown unknown Verified 07/17/17 19:21 ciprofloxacin Allergy Unknown unknown Verified 05/25/19 14:01 clindamycin Allergy Unknown unknown Verified 05/25/19 14:01 lisinopril Allergy Unknown unknown Verified 05/25/19 14:01 Past Med/Surg History Medical History Dementia (Chronic) A-fib (Chronic) CVA (cerebral vascular accident) (Chronic) embolism of right cerebellar artery CKD (chronic kidney disease), stage III (Chronic) Gout (Chronic) HTN (hypertension) (Chronic) Depression (Chronic) Dementia (Chronic) Stenosis of right carotid artery (Chronic) Surgical History History of hemiarthroplasty of left hip (Chronic) History of hysterectomy (Chronic) History of hernia repair (Chronic) Family History Mother , childbirth No problems noted. 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 and A total of 10 systems reviewed and were otherwise negative Physical Exam Vital Signs Vital Signs - 24 hr 05/25/19 12:06 05/25/19 12:32 05/25/19 12:55 Temperature 36.8 C Temperature Source Oral Sepsis Recent Fever Within 48 Hours Yes Sepsis New/Unexplained Change in Mental Status No Sepsis Action Taken by Nursing No Action Required Pulse Rate 78 75 Pulse Rate [Left Finger] Pulse Rate from SpO2 Sensor 77 Respiratory Rate 20 22 Blood Pressure 96/58 L 115/64 Blood Pressure [Right Arm] Blood Pressure Mean 70 81 Blood Pressure Mean [Right Arm] Pulse Oximetry 95 91 90 Oxygen Delivery Method Room Air Room Air Oxygen Flow Rate 05/25/19 12:59 05/25/19 13:00 05/25/19 13:10 Temperature Temperature Source Sepsis Recent Fever Within 48 Hours Sepsis New/Unexplained Change in Mental Status Sepsis Action Taken by Nursing Pulse Rate 75 76 78 Pulse Rate [Left Finger] Pulse Rate from SpO2 Sensor 78 77 Respiratory Rate 21 17 16 Blood Pressure 109/71 Blood Pressure [Right Arm] Blood Pressure Mean 83 Blood Pressure Mean [Right Arm] Pulse Oximetry 85 L 89 L Oxygen Delivery Method Oxygen Flow Rate 05/25/19 13:20 05/25/19 13:30 05/25/19 13:40 Temperature Temperature Source Sepsis Recent Fever Within 48 Hours Sepsis New/Unexplained Change in Mental Status Sepsis Action Taken by Nursing Pulse Rate 74 79 73 Pulse Rate [Left Finger] Pulse Rate from SpO2 Sensor Respiratory Rate 19 28 H 17 Blood Pressure Blood Pressure [Right Arm] Blood Pressure Mean Blood Pressure Mean [Right Arm] Pulse Oximetry Oxygen Delivery Method Oxygen Flow Rate 05/25/19 13:50 05/25/19 13:58 05/25/19 14:00 Temperature Temperature Source Sepsis Recent Fever Within 48 Hours Sepsis New/Unexplained Change in Mental Status Sepsis Action Taken by Nursing Pulse Rate 82 78 77 Pulse Rate [Left Finger] Pulse Rate from SpO2 Sensor 75 Respiratory Rate 20 22 20 Blood Pressure 111/64 111/59 L Blood Pressure [Right Arm] Blood Pressure Mean 79 76 Blood Pressure Mean [Right Arm] Pulse Oximetry 98 Oxygen Delivery Method Nasal Cannula Oxygen Flow Rate 2 05/25/19 14:01 05/25/19 14:10 05/25/19 14:20 Temperature Temperature Source Sepsis Recent Fever Within 48 Hours Sepsis New/Unexplained Change in Mental Status Sepsis Action Taken by Nursing Pulse Rate 78 83 Pulse Rate [Left Finger] Pulse Rate from SpO2 Sensor 78 75 Respiratory Rate 17 19 Blood Pressure Blood Pressure [Right Arm] Blood Pressure Mean Blood Pressure Mean [Right Arm] Pulse Oximetry 99 100 97 Oxygen Delivery Method Nasal Cannula Oxygen Flow Rate 2 05/25/19 14:30 05/25/19 14:40 05/25/19 15:47 Temperature Temperature Source Sepsis Recent Fever Within 48 Hours Sepsis New/Unexplained Change in Mental Status Sepsis Action Taken by Nursing Pulse Rate 77 79 Pulse Rate [Left Finger] 79 Pulse Rate from SpO2 Sensor 73 77 Respiratory Rate 21 27 H 20 Blood Pressure Blood Pressure [Right Arm] 128/67 Blood Pressure Mean Blood Pressure Mean [Right Arm] 87 Pulse Oximetry 100 98 100 Oxygen Delivery Method Room Air Oxygen Flow Rate 05/25/19 16:24 Temperature Temperature Source Sepsis Recent Fever Within 48 Hours Sepsis New/Unexplained Change in Mental Status Sepsis Action Taken by Nursing Pulse Rate Pulse Rate [Left Finger] 73 Pulse Rate from SpO2 Sensor Respiratory Rate 18 Blood Pressure Blood Pressure [Right Arm] 130/77 Blood Pressure Mean Blood Pressure Mean [Right Arm] 94 Pulse Oximetry 99 Oxygen Delivery Method Nasal Cannula Oxygen Flow Rate 2 GENERAL: Sitting up in bed, chronically ill appearing, disheveled EYE EXAM: normal conjunctiva. OROPHARYNX: no exudate, no erythema, lips, buccal mucosa, and tongue normal and mucous membranes are moist NECK: supple, no nuchal rigidity, no adenopathy, non-tender LUNGS: Clear to auscultation. Normal chest wall mechanics HEART: no murmurs, S1 normal and S2 normal ABDOMEN: abdomen soft, non-tender, normo-active bowel sounds, no masses, no rebound or guarding. BACK: Back is symmetrical on inspection and there is no deformity, no midline tenderness, no CVA tenderness. HIP: Sutures and bartolo in place, fullness and tenderness to palpation SKIN: no rashes and no bruising UPPER EXTREMITIES: upper extremities are grossly normal. LOWER EXTREMITIES: No pitting edema. NEURO EXAM: Normal sensorium, cranial nerves II-XII grossly intact, normal speech, no gross weakness of arms, no gross weakness of legs. Course ED COURSE: Vital signs were reviewed and showed hypotensive The patients medical record was reviewed The above diagnostic studies were performed and reviewed. ED treatments and interventions as stated above. 1223: The patient was evaluated in room B09. A complete history and physical examination was performed. 1554: Upon reevaluation, the patient is still having hip pain. I discussed my findings with the patient and she understands and agrees with the treatment plan. 1610: I spoke with Rajni Kapoor for Dr. Marta Woo. They will evaluate for further management Based on the patients age, coexisting illnesses, exam and lab findings the decision to treat as an inpatient was made. The patient remained stable while under my care. The patient will be evaluated for further management. Administered Medications Discontinued Medications Sodium Chloride (Nss 1000ml) 2,000 mls @ 999 mls/hr IV .Q2H1M ONE Stop: 05/25/19 14:32 Last Infusion: 05/25/19 17:04 Dose: 0 mls/hr Documented by: [id number] Admin: 05/25/19 12:45 Dose: 999 mls/hr Documented by: [id number] Cefepime HCl 1,000 mg/ Syringe 11.3 mls @ 5.5 mls/min IV NOW STA; Protocol Stop: 05/25/19 16:07 Last Admin: 05/25/19 16:21 Dose: 5.5 mls/min Documented by: [id number] Medical Decision Making Differential Diagnosis Differential diagnosis: Etiologies such as sepsis, UTI, pneumonia, bacteremia, metabolic process, electrolyte abnormalities, cardiac sources, intracerebral event, intra-abdominal process, toxicological process, neurologic process, as well as others were entertained. Medical Records Attestation: I reviewed the patient's medical records. Home Medications Current Medication List: was personally reviewed by me Laboratory Data Attestation: I reviewed the patient's lab results. Result diagrams: 05/25/19 14:30 05/25/19 13:40 Lab Results 05/25/19 05/25/19 05/25/19 Range/Units 13:40 13:40 13:40 WBC (4.8-10.8) K/uL RBC (4.2-5.4) M/uL Hgb (12.0-16.0) g/dL Hct (37-47) % MCV (80-100) fL MCH (25-34) pg MCHC (32-36) g/dL RDW Std Deviation (36.4-46.3) fL RDW Coeff of Marcia (11.5-14.5) % Plt Count (130-400) K/uL MPV (7.4-10.4) fL Immature Gran % (Auto) % Neut % (Auto) % Lymph % (Auto) % [place] % (Auto) % Eos % (Auto) % Baso % (Auto) % Immature Gran # (Auto) (0.00-0.02) K/uL Neut # (Auto) (1.4-6.5) K/uL Lymph # (Auto) (1.2-3.4) K/uL [place] # (Auto) (0.11-0.59) K/uL Eos # (Auto) (0-0.5) K/uL Baso # (Auto) (0-0.2) K/uL Anisocytosis PT Cancelled INR Cancelled APTT Cancelled PTT Ratio Cancelled Sodium 136 (136-145) mmol/L Potassium 3.0 L (3.5-5.1) mmol/L Chloride 102 (98-107) mmol/L Carbon Dioxide 26 (21-32) mmol/L Anion Gap 8.0 (3-11) BUN 27 H (7-18) mg/dl Creatinine 1.20 (0.6-1.2) mg/dl Est Cr Clr Drug Dosing 33.4 ml/min Est GFR ( Amer) 49.4 Est GFR (Non-Af Amer) 42.7 BUN/Creatinine Ratio 22.2 H (10-20) Glucose 81 (70-99) mg/dl Lactate (0.4-2.0) mmol/L Calcium 8.0 L (8.5-10.1) mg/dl Total Bilirubin 0.4 (0.2-1) mg/dl AST 18 (15-37) U/L ALT 12 (12-78) U/L Alkaline Phosphatase 90 (45-117) U/L Total Protein 6.0 L (6.4-8.2) gm/dl Albumin 2.2 L (3.4-5.0) gm/dl Globulin 3.8 (2.5-4.0) gm/dl Albumin/Globulin Ratio 0.6 L (0.9-2) Urine Color Urine Appearance (Clear) Urine pH (4.5-7.5) Ur Specific [place] (1.000-1.030) Urine Protein (Negative) Urine Glucose (UA) (Negative) Urine Ketones (Negative) Urine Blood (Negative) Urine Nitrite (Negative) Urine Bilirubin (Negative) Urine Urobilinogen (Negative) Ur Leukocyte Esterase (Negative) Urine RBC (0-4) /hpf Urine WBC (0-5) /hpf Ur Epithelial Cells (0-5) /lpf Urine Bacteria (Negative) 05/25/19 05/25/19 05/25/19 Range/Units 13:40 14:30 14:30 WBC 9.81 (4.8-10.8) K/uL RBC 2.42 L (4.2-5.4) M/uL Hgb 7.6 L (12.0-16.0) g/dL Hct 23.7 L (37-47) % MCV 97.9 (80-100) fL MCH 31.4 (25-34) pg MCHC 32.1 (32-36) g/dL RDW Std Deviation 58.5 H (36.4-46.3) fL RDW Coeff of Marcia 16.2 H (11.5-14.5) % Plt Count 296 (130-400) K/uL MPV 8.9 (7.4-10.4) fL Immature Gran % (Auto) 0.3 % Neut % (Auto) 73.2 % Lymph % (Auto) 17.8 % [place] % (Auto) 6.3 % Eos % (Auto) 2.3 % Baso % (Auto) 0.1 % Immature Gran # (Auto) 0.03 H (0.00-0.02) K/uL Neut # (Auto) 7.17 H (1.4-6.5) K/uL Lymph # (Auto) 1.75 (1.2-3.4) K/uL [place]rick # (Auto) 0.62 H (0.11-0.59) K/uL Eos # (Auto) 0.23 (0-0.5) K/uL Baso # (Auto) 0.01 (0-0.2) K/uL Anisocytosis Present PT 10.7 INR 1.0 APTT 27.7 PTT Ratio 1.0 Sodium (136-145) mmol/L Potassium (3.5-5.1) mmol/L Chloride (98-107) mmol/L Carbon Dioxide (21-32) mmol/L Anion Gap (3-11) BUN (7-18) mg/dl Creatinine (0.6-1.2) mg/dl Est Cr Clr Drug Dosing ml/min Est GFR ( Amer) Est GFR (Non-Af Amer) BUN/Creatinine Ratio (10-20) Glucose (70-99) mg/dl Lactate 1.0 (0.4-2.0) mmol/L Calcium (8.5-10.1) mg/dl Total Bilirubin (0.2-1) mg/dl AST (15-37) U/L ALT (12-78) U/L Alkaline Phosphatase (45-117) U/L Total Protein (6.4-8.2) gm/dl Albumin (3.4-5.0) gm/dl Globulin (2.5-4.0) gm/dl Albumin/Globulin Ratio (0.9-2) Urine Color Urine Appearance (Clear) Urine pH (4.5-7.5) Ur Specific [place] (1.000-1.030) Urine Protein (Negative) Urine Glucose (UA) (Negative) Urine Ketones (Negative) Urine Blood (Negative) Urine Nitrite (Negative) Urine Bilirubin (Negative) Urine Urobilinogen (Negative) Ur Leukocyte Esterase (Negative) Urine RBC (0-4) /hpf Urine WBC (0-5) /hpf Ur Epithelial Cells (0-5) /lpf Urine Bacteria (Negative) 05/25/19 Range/Units 15:00 WBC (4.8-10.8) K/uL RBC (4.2-5.4) M/uL Hgb (12.0-16.0) g/dL Hct (37-47) % MCV (80-100) fL MCH (25-34) pg MCHC (32-36) g/dL RDW Std Deviation (36.4-46.3) fL RDW Coeff of Marcia (11.5-14.5) % Plt Count (130-400) K/uL MPV (7.4-10.4) fL Immature Gran % (Auto) % Neut % (Auto) % Lymph % (Auto) % [place] % (Auto) % Eos % (Auto) % Baso % (Auto) % Immature Gran # (Auto) (0.00-0.02) K/uL Neut # (Auto) (1.4-6.5) K/uL Lymph # (Auto) (1.2-3.4) K/uL [place] # (Auto) (0.11-0.59) K/uL Eos # (Auto) (0-0.5) K/uL Baso # (Auto) (0-0.2) K/uL Anisocytosis PT INR APTT PTT Ratio Sodium (136-145) mmol/L Potassium (3.5-5.1) mmol/L Chloride (98-107) mmol/L Carbon Dioxide (21-32) mmol/L Anion Gap (3-11) BUN (7-18) mg/dl Creatinine (0.6-1.2) mg/dl Est Cr Clr Drug Dosing ml/min Est GFR ( Amer) Est GFR (Non-Af Amer) BUN/Creatinine Ratio (10-20) Glucose (70-99) mg/dl Lactate (0.4-2.0) mmol/L Calcium (8.5-10.1) mg/dl Total Bilirubin (0.2-1) mg/dl AST (15-37) U/L ALT (12-78) U/L Alkaline Phosphatase (45-117) U/L Total Protein (6.4-8.2) gm/dl Albumin (3.4-5.0) gm/dl Globulin (2.5-4.0) gm/dl Albumin/Globulin Ratio (0.9-2) Urine Color Yellow Urine Appearance Clear (Clear) Urine pH 6.0 (4.5-7.5) Ur Specific [place] 1.015 (1.000-1.030) Urine Protein Trace H (Negative) Urine Glucose (UA) Negative (Negative) Urine Ketones Negative (Negative) Urine Blood Trace H (Negative) Urine Nitrite Negative (Negative) Urine Bilirubin Negative (Negative) Urine Urobilinogen Negative (Negative) Ur Leukocyte Esterase 3+ H (Negative) Urine RBC >30 H (0-4) /hpf Urine WBC >30 H (0-5) /hpf Ur Epithelial Cells >30 H (0-5) /lpf Urine Bacteria 2+ H (Negative) Imaging Data Radiologist's Impression: Radiology results as stated below per my review and the radiologist's interpretation: XR chest 1V portable HISTORY: 78 years-old Female Sepsis acute sepsis COMPARISON: Chest radiograph 04/02/2019 TECHNIQUE: Portable AP view of the chest FINDINGS: Cardiac silhouette is enlarged, unchanged. No overt pulmonary edema. Calcified lymph node inferior to the aortic arch. No pneumothorax. Trace pleural effusions with patchy left greater than right bibasilar opacities. Degenerative changes of the shoulders and spine. IMPRESSION: 1. Patchy left greater than right bibasilar opacities suggest atelectasis versus pneumonitis. 2. Trace pleural effusions. 3. Cardiomegaly without overt pulmonary edema. The above report was generated using voice recognition software. It may contain grammatical, syntax or spelling errors. Electronically signed by: Momo Drummond M.D. 05/25/2019 1:22 PM XR hip RT 2V w pelvis CLINICAL HISTORY: r hip pain COMPARISON: None. DISCUSSION: Bilateral total hip arthroplasties. Could contact between prosthetic and underlying bone bilaterally. Avulsion of the greater trochanter is noted on the right. Circumferential wires are present. No evidence for acetabular protrusion. There is no evidence for soft tissue swelling. IMPRESSION: Anatomic alignment posttotal bilateral hip arthroplasties. The above report was generated using voice recognition software. It may contain grammatical, syntax or spelling errors. Electronically signed by: Juan Jose Cardenas M.D. 05/25/2019 3:39 PM Blood Pressure Blood Pressure Findings: Low blood pressure Blood Pressure Disposition: further management by hospitalist HARSHAL Narrative Patient is an 78-year-old female who presents the ER for possible recurrence of right hip infection/worsening. Patient fell and broke her right hip and had a surgery in early March. Patient had a washout on 05/14 with concern for infection. It grew out Enterobacter. Placed on ertapenem. Patient was discharged back to [facility]. She presents today as they have had fevers of 101 with new and increased green/yellow purulent drainage from the right hip associated with some worsening confusion. IV was established blood work was obtained and showed a hemoglobin of 7.6 consistent with previous around 8. No significant leukocytosis. INR was unremarkable. BMP with mild hypokalemia. LFTs bilirubin was unremarkable. UA was contaminated with multiple epithelial cells. Patient was covered with cefepime which cover the Enterobacter as well as Pseudomonas. There is no MRSA coverage at this time will defer to the hospitalist. Patient was given IV fluids. She is updated bedside. Discussed with longterm. Discussed with the hospitalist. Impression & Plan Fever, Acute pain of right hip, Hip swelling, Anemia Discharge Plan Visit Data Chief Complaint: Fever Stated Complaint: FEVER,RIGHT HIP WOUND INFECTION ED Provider: Jesse Lyles Discharge Problem: Fever, Acute pain of right hip, Hip swelling, Anemia Patient Disposition: Being Evaluated by Hospitalist Forms Stand Alone Forms: [facility] Prescriptions Prescriptions: No Action simvastatin 40 mg Tablet 40 mg PO HS RF: 0 ascorbic acid (vitamin C) [Vitamin C] 500 mg Tablet 500 mg PO BID RF: 0 multivitamin Capsule 1 cap PO QAM RF: 0 aspirin [Ecotrin Low Strength] 81 mg Tablet,Delayed Release (Dr/Ec) 81 mg PO BID 30 Days Qty: 60 RF: 0 oxycodone-acetaminophen [Percocet] 5-325 mg tablet 1 - 2 tab PO Q6H PRN (Reason: pain) Qty: 30 RF: 0 acetaminophen [Tylenol] 325 mg Tablet 650 mg PO Q6H PRN (Reason: Fever) RF: 0 ertapenem 1 gram recon soln 500 mg IM QAM RF: 0 allopurinol 100 mg Tablet 100 mg PO QAM RF: 0 amlodipine 5 mg Tablet 5 mg PO QAM RF: 0 citalopram 40 mg Tablet 40 mg PO QAM RF: 0 clopidogrel [Plavix] 75 mg Tablet 75 mg PO QAM RF: 0 diclofenac sodium 1 % Gel 2 g TOPICAL QID RF: 0 ferrous gluconate 324 mg (38 mg iron) Tablet 324 mg PO QAM RF: 0 folic acid 1 mg Tablet 1 mg PO Q2D RF: 0 metoprolol succinate 50 mg Tablet Extended Release 24 Hr 50 mg PO BID RF: 0 oxybutynin chloride 5 mg Tablet 5 mg PO BID RF: 0 cyanocobalamin (vitamin B-12) 1,000 mcg Tablet 1,000 mcg PO QAM RF: 0 sennosides [senna] 8.6 mg Tablet 8.6 mg PO HS RF: 0 Referrals Referrals: Joanne Loo [Primary Care Provider] - Discharge Problem: Fever Qualifiers: Fever type: unspecified Qualified Code(s): R50.9 - Fever, unspecified Hip swelling Qualifiers: Laterality: right Qualified Code(s): M25.451 - Effusion, right hip Anemia Qualifiers: Anemia type: unspecified type Qualified Code(s): D64.9 - Anemia, unspecified The scribe's documentation has been prepared under my direction and personally reviewed by me in its entirety. I confirm that the note above accurately reflects all work, treatment, procedures, and medical decision making performed by me.
[2019-05-25] MEDS ORDERED: OXYCODONE/ACETAMINOPHEN 5mg/325mg TAB PO PRN (19:45)
[2019-05-25] MEDS ORDERED: ACETAMINOPHEN 325 MG TAB PO PRN (19:45)
[2019-05-25] MEDS ORDERED: POLYETHYLENE (MIRALAX) 17 GM PACK PO PRN (19:45)
[2019-05-25] MEDS: METOPROLOL SUCC 50MG EXT REL TAB PO SCH (20:44)
[2019-05-25] MEDS: SENNA 8.6 MG TAB PO SCH (20:44)
[2019-05-25] MEDS: SIMVASTATIN 20 MG TAB PO SCH (20:44)
[2019-05-25] MEDS: ASPIRIN 81 MG ECTAB PO SCH (20:44)
[2019-05-25] MEDS: POTASSIUM CHLORIDE 20 MEQ TABCR PO SCH (20:44)
[2019-05-25] MEDS: ASCORBIC ACID 500 MG TAB PO SCH (20:44)
[2019-05-26] MEDS: POTASSIUM CHLORIDE 20 MEQ TABCR PO SCH (01:57)
[2019-05-26 06:53] LABS: Basophils # (auto) 0.02 K/uL (0-0.2); Basophils % (auto) 0.2 %; Eosinophils % (auto) 3.2 %; Hematocrit (blood only) 24.5 % (37-47); Hemoglobin 7.8 g/dL (12.0-16.0); Immature Granulocytes # (auto) 0.02 K/uL (0.00-0.02); Immature Granulocytes % (auto) 0.2 %; Lymphocytes # (auto) 1.38 K/uL (1.2-3.4); Lymphocytes % (auto) 14.7 %; Mean Corpuscular Hemoglobin 31.3 pg (25-34); Mean Corpuscular Hgb Conc 31.8 g/dL (32-36); Mean Corpuscular Volume 98.4 fL (80-100); Mean Platelet Volume 9.1 fL (7.4-10.4); Monocytes # (auto) 0.55 K/uL (0.11-0.59); Monocytes % (auto) 5.9 %; Neutrophils # (auto) 7.12 K/uL (1.4-6.5); Neutrophils % (auto) 75.8 %; Platelet Count 296 K/uL (130-400); RDW Coefficient of Variation 16.2 % (11.5-14.5); RDW Standard Deviation 58.2 fL (36.4-46.3); Red Blood Count 2.49 M/uL (4.2-5.4); White Blood Count 9.39 K/uL (4.8-10.8)
[2019-05-26 07:14] LABS: BUN Creatinine Ratio 21.3 (10-20); Calcium 8.3 mg/dl (8.5-10.1); Creatinine Clr Calc Pharmacy 39.8 ml/min; Est GFR (African American) 60.9; Est GFR (Non-African American) 52.5; Potassium 3.5 mmol/L (3.5-5.1)
[2019-05-26] MEDS: AMLODIPINE BESYLATE 5 MG TAB PO SCH (08:41)
[2019-05-26] MEDS: ASPIRIN 81 MG ECTAB PO SCH ×2 (08:41→21:38)
[2019-05-26] MEDS: ASCORBIC ACID 500 MG TAB PO SCH ×2 (08:42→21:39)
[2019-05-26] MEDS: CYANOCOBALAMIN 500 MCG TABLET (VITAMIN B-12) PO SCH (08:42)
[2019-05-26] MEDS: CLOPIDOGREL BISULFATE 75 MG TAB PO SCH (08:42)
[2019-05-26] MEDS: CITALOPRAM 40 MG TAB PO SCH (08:42)
[2019-05-26] MEDS: ALLOPURINOL 100 MG TAB PO SCH (08:42)
[2019-05-26] MEDS: METOPROLOL SUCC 50MG EXT REL TAB PO SCH ×2 (08:42→21:40)
[2019-05-26] MEDS: HEPARIN SOD 5,000 UNIT/0.5 ML VIAL SQ SCH ×2 (08:43→21:38)
[2019-05-26] MEDS ORDERED: PIPERACILLIN/TAZOBACTAM 4.5 GM in DEXTROSE 5% 100 ML IV ONE (09:30)
--- NOTE | 2019-05-26 09:59 | Infectious Disease Consult ---
Date of Consultation May 26, 2019 Assessment & Plan (1) Infected surgical wound: Patient with what appears to be persistent infection at right hip surgical site, previous culture positive for Enterobacter which is only intermediately sensitive to Zosyn. Fever and mental status changes possibly from reaction to ertapenem. Will change patient to IV cefepime for now, await orthopedic surgery consult. May want to consider CT scan of the hip to rule out deeper collection or other abnormalities. Will follow. 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 Subsequently developed evidence of hip infection requiring debridement, with cultures positive for Enterobacter and corynebacterium. She was discharged on IV ertapenem, but reportedly has had persistent drainage from the hip wound, as well as development of fever with some report of confusion. She was readmitted yesterday, and has been started on Zosyn. Currently with minimal pain in her right hip, no fever noted. Blood cultures are pending.X-ray of the hip shows good alignment of the prosthesis. Allergies Allergy/AdvReac Type Severity Reaction Status Date / Time Cipro Allergy Unknown unknown Verified 07/17/17 19:21 ciprofloxacin Allergy Unknown unknown Verified 05/25/19 14:01 clindamycin Allergy Unknown unknown Verified 05/25/19 14:01 lisinopril Allergy Unknown unknown Verified 05/25/19 14:01 Home Medications Home Medications Medication Instructions Recorded Confirmed Type allopurinol 100 mg PO QAM 04/02/19 05/26/19 History amlodipine 5 mg PO QAM 04/02/19 05/26/19 History citalopram 40 mg PO QAM 04/02/19 05/26/19 History clopidogrel [Plavix] 75 mg PO QAM 04/02/19 05/26/19 History cyanocobalamin (vitamin B-12) 1,000 mcg PO QAM 04/02/19 05/26/19 History diclofenac sodium 2 g TOPICAL QID 04/02/19 05/26/19 History ferrous gluconate 324 mg PO QAM 04/02/19 05/26/19 History folic acid 1 mg PO Q2D 04/02/19 05/26/19 History metoprolol succinate 50 mg PO BID 04/02/19 05/26/19 History oxybutynin chloride 5 mg PO BID 04/02/19 05/26/19 History sennosides [senna] 8.6 mg PO HS 04/02/19 05/26/19 History simvastatin 40 mg PO HS 04/22/19 05/26/19 History ascorbic acid (vitamin C) [Vitamin 500 mg PO BID 05/13/19 05/26/19 History C] multivitamin 1 cap PO QAM 05/13/19 05/26/19 History aspirin [Ecotrin Low Strength] 81 mg PO BID 30 Days #60 tab 05/18/19 05/26/19 Rx oxycodone-acetaminophen [Percocet] 1 - 2 tab PO Q6H PRN #30 tab 05/18/19 05/26/19 Rx acetaminophen [Tylenol] 650 mg PO Q6H PRN 05/25/19 05/26/19 History ertapenem 500 mg IM QAM 05/25/19 05/26/19 History Patient History Medical History Dementia (Chronic) A-fib (Chronic) CVA (cerebral vascular accident) (Chronic) embolism of right cerebellar artery CKD (chronic kidney disease), stage III (Chronic) Gout (Chronic) HTN (hypertension) (Chronic) Depression (Chronic) Dementia (Chronic) Stenosis of right carotid artery (Chronic) Surgical History History of hemiarthroplasty of left hip (Chronic) History of hysterectomy (Chronic) History of hernia repair (Chronic) S/P HALEY-BSO Family History Mother , childbirth No problems noted. Social History Preferred Language: [place] Communication Ability: Effective Shoe Parts Molder Required: No Beliefs That Will Affect Care: None marital status: / Current Living Situation: Assisted Current Living Situation Comment: [facility] Other Information That Helps Us Care for You: No Feels Safe at Home: Yes Safety Concerns: Feels Safe At This Time Smoking Status: Never smoker Second Hand Exposure: No ; Hx Alcohol Use: No Hx Substance Use: No Review of Systems Review of Systems: All systems reviewed & are unremarkable except as noted in HPI & below Physical Exam Constitutional: WD/WN, vitals as above comfortable; no acute distress Eyes: PERRL, conjunctivae normal, anicteric sclerae ENMT: external ear and nose normal, oropharynx normal Neck: trachea midline, no thyromegaly neck nontender Respiratory: normal respiratory effort, lungs clear to auscultation normal percussion; does not use accessory muscles Cardiovascular: Rate/Rhythm: + irregularly irregular Heart Sounds: normal S1 and normal S2; no gallop, no murmur and no cardiac rub Vessels: normal peripheral pulses; no JVD Gastrointestinal (Abdomen): normal bowel sounds, soft, nontender, no hepatosplenomegaly Musculoskeletal: no cyanosis or clubbing, extremities motor strength 5/5 Spine: thoracic spine normal to inspection and lumbar spine normal to inspection; no cervical spinal tenderness Skin: no rashes, warm and dry normal turgor and + wound (Surgical wound right hip closed, no active drainage at present, no signific) Neurologic: patellar DTR's 2+ bilat, sensation intact no focal motor deficits Psychiatric: A+Ox3, euthymic affect Orientation: cooperative Lymphatic: no cervical or axillary lymphadenopathy no inguinal lymphadenop athy Results & Data Vital Signs (Past 12 Hours) Vital Signs Temp Pulse Resp BP Pulse Ox 05/26/19 07:55 36.6 C 86 18 133/82 99 05/25/19 23:54 136/89 05/25/19 22:53 36.7 C 78 16 159/90 H 97 Laboratory Results Short CBC 05/25/19 05/25/19 05/26/19 Range/Units 13:40 14:30 06:19 WBC 9.81 9.39 (4.8-10.8) K/uL Hgb 7.6 L 7.8 L (12.0-16.0) g/dL Hct 23.7 L 24.5 L (37-47) % Plt Count 296 296 (130-400) K/uL BMP 05/25/19 05/26/19 13:40 06:19 Sodium 136 138 Potassium 3.0 L 3.5 D Chloride 102 107 Carbon Dioxide 26 28 BUN 27 H 22 H Creatinine 1.20 1.01 Glucose 81 69 L Calcium 8.0 L 8.3 L Liver Function 05/25/19 Range/Units 13:40 Total Bilirubin 0.4 (0.2-1) mg/dl AST 18 (15-37) U/L ALT 12 (12-78) U/L Alkaline Phosphatase 90 (45-117) U/L Albumin 2.2 L (3.4-5.0) gm/dl Urine 05/25/19 Range/Units 15:00 Urine Color Yellow Urine Appearance Clear (Clear) Urine pH 6.0 (4.5-7.5) Ur Specific [place] 1.015 (1.000-1.030) Urine Protein Trace H (Negative) Urine Glucose (UA) Negative (Negative) Diagnostic Findings Name: RACHELLE HOPKINS Acct: [id number] Status: DIS IN : 1940 [facility] Date: 05/14/19 Age: 78 Sex: F Dis Date: 05/18/19 Loc: Medical/Surgical/Ortho [address] [place] [address]/Bed: [facility] Spec: [id number] Collected: 05/14/19-UNK Received: 05/14/19-[address]: Trev GuptaD.O. Source: Hip,Right OV Order: Ordered: Aer/Isa Cult/Sm Comments: Reason for Exam surgical Comment with sensitivity Procedure Result Verified Site Gram Stain Final 05/15/19-947 Gram Stain Result Few WBCs Seen No Organisms Seen Aero/Isa Cult Final 05/19/19-1415 Organism 1 Corynebacterium species Quantity Few Sens No Sensitivities to Follow No Anaerobes Isolated No Anaerobes Isolated +MixWound Plus Low Counts of Probable Skin Evelin Organism 2 Enterobacter cloacae Quantity Rare Sens No Sensitivities to Follow Please see culture number [id number] for sensitivities. Name: RACHELLE HOPKINS : 1940 PAGE 1 Printed: 05/26/19 1001 END OF REPORT XR hip RT 2V w pelvis CLINICAL HISTORY: r hip pain COMPARISON: None. DISCUSSION: Bilateral total hip arthroplasties. Could contact between prosthetic and underlying bone bilaterally. Avulsion of the greater trochanter is noted on the right. Circumferential wires are present. No evidence for acetabular protrusion. There is no evidence for soft tissue swelling. IMPRESSION: Anatomic alignment posttotal bilateral hip arthroplasties. The above report was generated using voice recognition software. It may contain grammatical, syntax or spelling errors. PG Care Time/CCT Total # of Minutes Spent Total Time Spent with Patient: Total time spent is greater than 50% in coordination of care (as documented) at patient's floor/unit and/or counseling patient:
[2019-05-26] MEDS: CEFEPIME 2,000 MG in SYRINGE 7.5 ML IV SCH ×2 (10:17→21:38)
--- NOTE | 2019-05-26 14:35 | Orthopedic Consultation ---
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 Whitlock. Patient currently can be weightbearing as tolerated on the right lower extremity. If drainage does occur with the right hip, plan for culture of the drainage at that time. I discussed the case with Dr. Gupta. Plan for ultrasound of the right lateral thigh and aspiration with cell count and culture of any fluid aspirated. History of Present Illness Reason for Consultation: Status post superficial right hip wound infection Attending Physician: Sarabjit Osborn MD History of Present Illness Patient is an 78-year-old white female known to our practice who is status post irrigation and debridement of her right hip wound infection on 05/14/[address] Gupta. She was then discharged to a skilled facility and has been receiving IV ertapenem since her discharge. The patient began to develop fevers and a mental status changes. The staff there at the skilled facility said her wound was draining. Currently nursing staff states that the wound has not been draining since she is been admitted. There is no family present and taking history from the chart at this time and from the patient. She is currently awake and alert sitting up in bed. She has no complaints. She denies right hip pain. We have been asked to see her for question of further infection in the right hip. Allergies Allergy/AdvReac Type Severity Reaction Status Date / Time Cipro Allergy Unknown unknown Verified 07/17/17 19:21 ciprofloxacin Allergy Unknown unknown Verified 05/25/19 14:01 clindamycin Allergy Unknown unknown Verified 05/25/19 14:01 lisinopril Allergy Unknown unknown Verified 05/25/19 14:01 Home Medications Home Medications Medication Instructions Recorded Confirmed Type allopurinol 100 mg PO QAM 04/02/19 05/26/19 History amlodipine 5 mg PO QAM 04/02/19 05/26/19 History citalopram 40 mg PO QAM 04/02/19 05/26/19 History clopidogrel [Plavix] 75 mg PO QAM 04/02/19 05/26/19 History cyanocobalamin (vitamin B-12) 1,000 mcg PO QAM 04/02/19 05/26/19 History diclofenac sodium 2 g TOPICAL QID 04/02/19 05/26/19 History ferrous gluconate 324 mg PO QAM 04/02/19 05/26/19 History folic acid 1 mg PO Q2D 04/02/19 05/26/19 History metoprolol succinate 50 mg PO BID 04/02/19 05/26/19 History oxybutynin chloride 5 mg PO BID 04/02/19 05/26/19 History sennosides [senna] 8.6 mg PO HS 04/02/19 05/26/19 History simvastatin 40 mg PO HS 04/22/19 05/26/19 History ascorbic acid (vitamin C) [Vitamin 500 mg PO BID 05/13/19 05/26/19 History C] multivitamin 1 cap PO QAM 05/13/19 05/26/19 History aspirin [Ecotrin Low Strength] 81 mg PO BID 30 Days #60 tab 05/18/19 05/26/19 Rx oxycodone-acetaminophen [Percocet] 1 - 2 tab PO Q6H PRN #30 tab 05/18/19 05/26/19 Rx acetaminophen [Tylenol] 650 mg PO Q6H PRN 05/25/19 05/26/19 History ertapenem 500 mg IM QAM 05/25/19 05/26/19 History Patient History Medical History Dementia (Chronic) A-fib (Chronic) CVA (cerebral vascular accident) (Chronic) embolism of right cerebellar artery CKD (chronic kidney disease), stage III (Chronic) Gout (Chronic) HTN (hypertension) (Chronic) Depression (Chronic) Dementia (Chronic) Stenosis of right carotid artery (Chronic) Surgical History History of hemiarthroplasty of left hip (Chronic) History of hysterectomy (Chronic) History of hernia repair (Chronic) S/P HALEY-BSO Family History Mother , childbirth No problems noted. Social History Preferred Language: Maori Communication Ability: Effective Cooler Servicer Required: No Beliefs That Will Affect Care: None marital status: / Current Living Situation: Longterm Current Living Situation Comment: [facility] Other Information That Helps Us Care for You: No Feels Safe at Home: Yes Safety Concerns: Feels Safe At This Time Smoking Status: Never smoker Second Hand Exposure: No ; Hx Alcohol Use: No Hx Substance Use: No Physical Exam Physical Exam: Currently the patient is sitting up in bed. She is awake and alert. She currently denies any pain in the right hip. On examination of the right hip, sutures and bartolo are intact. No area of dehiscence. No drainage that I can appreciate at this time. She has mild erythema around the wound itself. On palpation, she is nontender. He has some induration around the incision itself and it feels like she may have re-collected some fluid in the lateral hip. Continues to remain nontender on palpation. He has no pain on range of motion of the right hip. Flection and extension do not cause discomfort. Internal and external rotation does not bother her as well. He has good range of motion of her ankle and toes. Leg lengths appear equal. Results & Data Vital Signs (Past 12 Hours) Vital Signs Temp Pulse Resp BP Pulse Ox 05/26/19 07:55 36.6 C 86 18 133/82 99
--- NOTE | 2019-05-26 16:33 | Ultrasound Report ---
US extremity nonvascular CLINICAL HISTORY: Right lateral thigh/ s/p incision and drainage right hip wound COMPARISON STUDY: Right femur CT 04/22/2019. FINDINGS: There is a slightly complex subcutaneous fluid collection within the right lateral hip gume uring approximately 20 cm in length and up to 5 cm in thickness. This is similar to the prior study. This contains multiple thin septations. IMPRESSION: A 20 x 5 cm slightly complex subcutaneous fluid collection within the right lateral hip containing multiple thin septations. This could represent a postoperative seroma, hematoma, or absces s in the appropriate clinical setting. Electronically signed by: Cal Griggs M.D. 05/26/2019 4:31 PM
[2019-05-26] MEDS: SENNA 8.6 MG TAB PO SCH (21:39)
[2019-05-26] MEDS: SIMVASTATIN 20 MG TAB PO SCH (21:41)
--- NOTE | 2019-05-26 23:13 | Hospitalist Progress Note ---
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 Cultures grew Enterobacter cloacae and Corynebacterium sp. Most recently treated with ertapenem, but noted to be febrile at [facility]. ID and Ortho consulted. Currently receiving IV cefepime. (2) Abnormal urinalysis: UA showed + leukocyte esterase, negative nitrites, many RBC's, many WBC's, many epithelial cells. Urine culture negative so far. (3) Atrial fibrillation: Rate controlled on metoprolol. Not anticoagulated because deemed to be high risk. (4) Cerebrovascular disease: History of ischemic stroke. Not anticoagulated because deemed to be high risk. Continue aspirin and clopidogrel. (5) HTN (hypertension): Continue metoprolol. (6) CKD (chronic kidney disease), stage III: Serum creatinine at time of admission 1.20. Creatinine today = 1.01. (7) Hypokalemia: Serum K at time of admission 3.0. Received replacement. K today = 3.5. (8) Anemia: Postop anemia. Required transfusions after surgery about 2 weeks ago. Hgb at time of admission 7.6. Hgb today = 7.8. Follow H/H. Fe 17. Start FeSO4. (9) Dementia: Monitor for delirium. (10) DVT prophylaxis: Receiving SQ heparin. Ambulate. (11) Discharge planning issues: Anticipated return to [facility] for skilled care. May eventually return to [facility] for personal care. Subjective Recheck for multiple problems. Patient seen in their room around 1200. Doing fairly well. Tired. Has some right hip discomfort. No fever or chills. Review of Systems: Constitutional- no fever. Cardiac- no chest pain. Pulmonary- no cough or SOB. GI- no nausea, vomiting, diarrhea, melena, hematochezia. - no urinary symptoms. Otherwise, as noted above. Physical Exam Constitutional: no acute distress Respiratory: no respiratory distress Auscultation: lungs clear to auscultation bilaterally Cardiovascular: Rate/Rhythm: regular rate and regular rhythm Heart Sounds: no gallop, no murmur and no cardiac rub Vessels: no JVD Extremities: no calf tenderness and no edema Gastrointestinal (Abdomen): normal bowel sounds, soft, nontender, no hepatosplenomegaly Musculoskeletal: Extremities: + extremities abnormal to inspection (right hip incision with bartolo and sutures; swelling of proximal thigh) Skin: no rashes, warm and dry Psychiatric: Orientation: alert; + not oriented x 3 (oriented to person, hospital, day of week, not year, president) Results & Data Vital Signs (Past 12 Hours) Vital Signs Temp Pulse Pulse Resp BP Pulse Ox 05/26/19 21:35 96 H 136/87 05/26/19 15:12 36.9 C 86 18 109/72 100 Laboratory Results 05/26/19 06:19 05/26/19 06:19 (1) Anemia Anemia type: unspecified type Qualified Code(s): D64.9 - Anemia, unspecified
[2019-05-27 06:01] LABS: BUN Creatinine Ratio 19.9 (10-20); Calcium 8.2 mg/dl (8.5-10.1); Creatinine Clr Calc Pharmacy 36.2 ml/min; Est GFR (African American) 54.3; Est GFR (Non-African American) 46.9; Potassium 3.6 mmol/L (3.5-5.1)
--- NOTE | 2019-05-27 09:12 | Infectious Disease Progress Nt ---
Date of Service May 27, 2019 Assessment & Plan (1) Infected surgical wound: Patient with what appears to be persistent infection at right hip surgical site, previous culture positive for Enterobacter . Would continue on cefepime, recommend either aspiration or surgical drainage of collection, await orthopedic follow-up. Will follow. 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 Offering no new specific complaints today. Remains afebrile, pain controlled. Ultrasound shows large collection. Orthopedic follow-up noted. Blood cultures remain negative. Review of Systems Review of Systems: All systems reviewed & are unremarkable except as noted in HPI & below Physical Exam Constitutional: WD/WN, vitals as above comfortable; no acute distress Eyes: PERRL, conjunctivae normal, anicteric sclerae ENMT: external ear and nose normal, oropharynx normal Neck: trachea midline, no thyromegaly neck nontender Respiratory: normal respiratory effort, lungs clear to auscultation normal percussion; does not use accessory muscles Cardiovascular: Rate/Rhythm: + irregularly irregular Heart Sounds: normal S1 and normal S2; no gallop, no murmur and no cardiac rub Vessels: normal peripheral pulses; no JVD Gastrointestinal (Abdomen): normal bowel sounds, soft, nontender, no hepatosplenomegaly Musculoskeletal: no cyanosis or clubbing, extremities motor strength 5/5 Spine: thoracic spine normal to inspection and lumbar spine normal to inspection; no cervical spinal tenderness Skin: no rashes, warm and dry normal turgor and + wound (Surgical wound right hip closed, no active drainage at present, no signific) Neurologic: patellar DTR's 2+ bilat, sensation intact no focal motor deficits Psychiatric: A+Ox3, euthymic affect Orientation: cooperative Lymphatic: no cervical or axillary lymphadenopathy no inguinal lymphadenopathy Results & Data Vital Signs (Past 12 Hours) Vital Signs Temp Pulse Pulse Resp BP Pulse Ox 05/27/19 07:34 36.4 C L 78 16 152/90 H 99 05/26/19 23:43 37.1 C 88 17 131/80 96 05/26/19 21:35 96 H 136/87 Laboratory Results [facility] 05/27/19 05:22 Sodium 138 Potassium 3.6 Chloride 107 Carbon Dioxide 25 BUN 22 H Creatinine 1.11 Glucose 82 Calcium 8.2 L Diagnostic Findings Microbiology 05/25/19 12:50 Blood Aerobic Blood Culture - Preliminary No growth in Aerobic bottle after 24 hours. 05/25/19 12:50 Blood Anaerobic Blood Culture - Final 05/25/19 13:40 Blood Aerobic Blood Culture - Preliminary No growth in Aerobic bottle after 24 hours. 05/25/19 13:40 Blood Anaerobic Blood Culture - Preliminary No growth in Anaerobic bottle after 24 hours. 05/25/19 15:00 Urine,Clean Catch Urine Culture - Preliminary No growth - Less than 1,000 colonies/mL, Final report to follow. PG Care Time/CCT Total # of Minutes Spent Total Time Spent with Patient: Total time spent is greater than 50% in coordination of care (as documented) at patient's floor/unit and/or counseling patient:
--- NOTE | 2019-05-27 10:22 | Ultrasound Report ---
ULTRASOUND-GUIDED DRAINAGE OF A RIGHT HIP SUBCUTANEOUS FLUID COLLECTION CLINICAL HISTORY: Right lateral thigh fluid/ send for culture COMPARISON STUDY: Right hip ultrasound 05/26/2019. PROCEDURE: Written informed consent was obtained. Preliminary imaging of the right lateral hip was pe rformed to determine a safe needle a site. The right lateral hip was prepped and draped in the usual sterile fashion. 1% lidocaine was used for local anesthesia. An 18-gauge x 9 cm spinal needle was ins erted into the subcutaneous complex fluid collection within the right lateral hip. A total of 250 cc of blood products was removed. 120 cc was sent to the laboratory for further analysis at the request of the referring physician. There is near complete resolution of the complex fluid collection. The pa tient tolerated the procedure well. There were no immediate complications. IMPRESSION: Ultrasound-guided drainage of a subcutaneous right hip fluid collection with removal of 250 cc of blood products. A sample was sent to the laboratory for further evaluation. Electronically signed by: Cal Griggs M.D. 05/27/2019 10:20 AM
[2019-05-27] MEDS: CYANOCOBALAMIN 500 MCG TABLET (VITAMIN B-12) PO SCH (11:05)
[2019-05-27] MEDS: ASCORBIC ACID 500 MG TAB PO SCH ×2 (11:06→20:09)
[2019-05-27] MEDS: METOPROLOL SUCC 50MG EXT REL TAB PO SCH ×2 (11:06→20:09)
[2019-05-27] MEDS: CITALOPRAM 40 MG TAB PO SCH (11:06)
[2019-05-27] MEDS: ASPIRIN 81 MG ECTAB PO SCH ×2 (11:06→20:09)
[2019-05-27] MEDS: AMLODIPINE BESYLATE 5 MG TAB PO SCH (11:06)
[2019-05-27] MEDS: CLOPIDOGREL BISULFATE 75 MG TAB PO SCH (11:06)
[2019-05-27] MEDS: ALLOPURINOL 100 MG TAB PO SCH (11:06)
[2019-05-27] MEDS: HEPARIN SOD 5,000 UNIT/0.5 ML VIAL SQ SCH ×2 (11:07→20:10)
[2019-05-27] MEDS: CEFEPIME 2,000 MG in SYRINGE 7.5 ML IV SCH ×2 (11:07→20:09)
[2019-05-27 11:15] LABS: Appearance Synovial Fluid BLOODY; Color Synovial Fluid RED; RBC Synovial Fluid (A) 440000 /uL; Source Synovial Fluid HIP; WBC Synovial Fluid (A) 40600 /uL (0-200)
--- NOTE | 2019-05-27 16:28 | Orthopedic Progress Note ---
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 Sent for cell count which was [id number]. Gram stain neg for organisms and NGTD although on antibiotics currently. Continue IV antibiotics as per recommendation of Dr. Whitlock. Patient currently can be weightbearing as tolerated on the right lower extremity. If drainage does occur with the right hip, plan for culture of the drainage at that time. Will make her NPO after midnight for possible 2nd I/D if Dr Gupta feels necessary. Subjective Pt resting comfortably. No complaints this afternoon. States they took a fair amount of fluid from the lateral hip. No pain currently. Physical Exam Physical Exam: Hip with less swelling around the incision. Appears to have a bit less erythema. Nontender on palpation. Leg lengths equal. Continues to be nontender with ROM. No drainage from wound that I can appreciate. Results & Data Vital Signs (Past 12 Hours) Vital Signs Temp Pulse Pulse Resp BP Pulse Ox 05/27/19 15:17 36.5 C 82 20 94/61 L 98 05/27/19 07:34 36.4 C L 78 16 152/90 H 99
[2019-05-27] MEDS: SENNA 8.6 MG TAB PO SCH (20:09)
[2019-05-27] MEDS: SIMVASTATIN 20 MG TAB PO SCH (20:09)
--- NOTE | 2019-05-27 21:19 | Hospitalist Progress Note ---
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 Cultures grew Enterobacter cloacae and Corynebacterium sp. Most recently treated with ertapenem, but noted to be febrile at [facility]. ID and Ortho consulted. Currently receiving IV cefepime. (2) Abnormal urinalysis: UA showed + leukocyte esterase, negative nitrites, many RBC's, many WBC's, many epithelial cells. Urine culture growing 50,000 yeast. Suspect contaminated specimen. (3) Atrial fibrillation: Rate controlled on metoprolol. Not anticoagulated because deemed to be high risk. (4) Cerebrovascular disease: History of ischemic stroke. Not anticoagulated because deemed to be high risk. Continue aspirin and clopidogrel. (5) HTN (hypertension): Continue metoprolol. (6) CKD (chronic kidney disease), stage III: Serum creatinine at time of admission 1.20. Creatinine today = 1.11. (7) Hypokalemia: Serum K at time of admission 3.0. Received replacement. K today = 3.6. (8) Anemia: Postop anemia. Required transfusions after surgery about 2 weeks ago. Hgb at time of admission 7.6. Hgb 10/30 = 7.8. Follow H/H. Fe 17. Started FeSO4. (9) Dementia: Monitor for delirium. (10) DVT prophylaxis: Receiving SQ heparin. Ambulate. (11) Discharge planning issues: Anticipated return to [facility] for skilled care. May eventually return to [facility] for personal care. Subjective Recheck for multiple problems. Patient seen in their room around 1350. No new problems / complaints. Has some right hip discomfort. Aspiration of right thigh done by Radiology under US guidance. No fever or chills. Nursing reports 1 moderate loose stool this morning. Review of Systems: Constitutional- no fever. Cardiac- no chest pain. Pulmonary- no cough or SOB. GI- no nausea, vomiting. - no urinary symptoms. Otherwise, as noted above. Physical Exam Constitutional: no acute distress Respiratory: no respiratory distress Auscultation: lungs clear to auscu ltation bilaterally Cardiovascular: Rate/Rhythm: + irregularly irregular Heart Sounds: no gallop, no murmur and no cardiac rub Vessels: no JVD Extremities: no calf tenderness and no edema Gastrointestinal (Abdomen): normal bowel sounds, soft, nontender, no hepatosplenomegaly Musculoskeletal: Extremities: + extremities abnormal to inspection (right hip incision with bartolo and sutures; swelling of proximal thigh) Skin: no rashes, warm and dry Psychiatric: Orientation: alert; + not oriented x 3 (oriented to person, hospital, president, but not year) Results & Data Vital Signs (Past 12 Hours) Vital Signs Temp Pulse Pulse Resp BP BP Pulse Ox 05/27/19 20:08 87 111/76 05/27/19 15:17 36.5 C 82 20 94/61 L 98 Laboratory Results 05/26/19 06:19 05/27/19 05:22 (1) Anemia Anemia type: unspecified type Qualified Code(s): D64.9 - Anemia, unspecified
[2019-05-28 06:24] LABS: Hematocrit (blood only) 26.4 % (37-47); Hemoglobin 8.3 g/dL (12.0-16.0); Mean Corpuscular Hemoglobin 31.1 pg (25-34); Mean Corpuscular Hgb Conc 31.4 g/dL (32-36); Mean Corpuscular Volume 98.9 fL (80-100); Mean Platelet Volume 8.9 fL (7.4-10.4); Platelet Count 319 K/uL (130-400); RDW Coefficient of Variation 16.3 % (11.5-14.5); RDW Standard Deviation 58.2 fL (36.4-46.3); Red Blood Count 2.67 M/uL (4.2-5.4); White Blood Count 6.62 K/uL (4.8-10.8)
[2019-05-28 06:52] LABS: BUN Creatinine Ratio 19.4 (10-20); Calcium 8.4 mg/dl (8.5-10.1); Creatinine Clr Calc Pharmacy 34.9 ml/min; Est GFR (Non-African American) 44.9; Potassium 3.5 mmol/L (3.5-5.1)
[2019-05-28] MEDS: AMLODIPINE BESYLATE 5 MG TAB PO SCH (09:21)
[2019-05-28] MEDS: CEFEPIME 2,000 MG in SYRINGE 7.5 ML IV SCH (09:22)
[2019-05-28] MEDS: METOPROLOL SUCC 50MG EXT REL TAB PO SCH (09:22)
[2019-05-28] MEDS ORDERED: SODIUM CHLORIDE 0.9% 250 ML IV PRN ×2 (13:00→21:43)
[2019-05-28] MEDS ORDERED: fentaNYL citrate 100 MCG/2 ML VIAL ONE ×2 (13:00→15:47)
--- NOTE | 2019-05-28 13:00 | Anesthesiology Consultation ---
Date of Service May 28, 2019 Assessment & Plan (1) Encounter for pre-operative examination: Chart Review Chart Review: Acceptable Risk for Surgery Consults Requested none ASA ASA3 Proposed Anesthesia Anesthesia Type: General Risk / Benefits Reviewed With: PT / POA / Parent / Guardian, Accepts Plan and Informed Consent Obtained History Surgery Operation Date: 05/28/19 07:00 Proposed Procedures p Right Hip Wound Incision and Drainage, Possible Right Bipolar Hemiarthroplasty Head and Liner Exchange - Trev Gupta DO Height/Weight Height: 5 ft 1 in Weight: 70.1 kg Allergies Allergy/AdvReac Type Severity Reaction Status Date / Time Cipro Allergy Unknown unknown Verified 07/17/17 19:21 ciprofloxacin Allergy Unknown unknown Verified 05/25/19 14:01 clindamycin Allergy Unknown unknown Verified 05/25/19 14:01 lisinopril Allergy Unknown unknown Verified 05/25/19 14:01 Medications Home Medications Medication Instructions Recorded Confirmed Last Taken allopurinol 100 mg PO QAM 04/02/19 05/26/19 05/25/19 08:30 amlodipine 5 mg PO QAM 04/02/19 05/26/19 05/25/19 08:30 citalopram 40 mg PO QAM 04/02/19 05/26/19 05/25/19 08:30 clopidogrel [Plavix] 75 mg PO QAM 04/02/19 05/26/19 05/25/19 08:30 cyanocobalamin (vitamin B-12) 1,000 mcg PO QAM 04/02/19 05/26/19 05/25/19 08:30 diclofenac sodium 2 g TOPICAL QID 04/02/19 05/26/19 05/25/19 08:30 ferrous gluconate 324 mg PO QAM 04/02/19 05/26/19 05/25/19 08:30 folic acid 1 mg PO Q2D 04/02/19 05/26/19 05/25/19 08:30 metoprolol succinate 50 mg PO BID 04/02/19 05/26/19 05/25/19 08:30 oxybutynin chloride 5 mg PO BID 04/02/19 05/26/19 05/25/19 08:30 sennosides [senna] 8.6 mg PO HS 04/02/19 05/26/19 05/24/19 20:30 simvastatin 40 mg PO HS 04/22/19 05/26/19 05/24/19 20:30 ascorbic acid (vitamin C) [Vitamin 500 mg PO BID 05/13/19 05/26/19 05/25/19 08:30 C] multivitamin 1 cap PO QAM 05/13/19 05/26/19 05/25/19 08:30 aspirin [Ecotrin Low Strength] 81 mg PO BID 30 Days #60 tab 05/18/19 05/26/19 05/25/19 08:30 oxycodone-acetaminophen [Percocet] 1 - 2 tab PO Q6H PRN #30 tab 05/18/19 05/26/19 Unknown acetaminophen [Tylenol] 650 mg PO Q6H PRN 05/25/19 05/26/19 05/24/19 17:49 ertapenem 500 mg IM QAM 05/25/19 05/26/19 05/25/19 02:00 Active Medications Generic Name Dose Route Start Last Admin Trade Name Freq PRN Reason Stop Dose Admin Allopurinol 100 mg 05/26/19 09:00 05/27/19 11:06 Zyloprim PO 06/25/19 08:59 100 mg QAM TIMMY Administration Amlodipine Besylate 5 mg 05/26/19 09:00 05/28/19 09:21 Norvasc PO 06/25/19 08:59 5 mg QAM TIMMY Administration Ascorbic Acid 500 mg 05/25/19 21:00 05/27/19 20:09 Vitamin C PO 06/24/19 20:59 500 mg BID TIMMY Administration Aspirin 81 mg 05/25/19 21:00 05/27/19 20:09 Ecotrin Ectab PO 06/24/19 20:59 81 mg BID TIMMY Administration Citalopram Hydrobromide 40 mg 05/26/19 09:00 05/27/19 11:06 Celexa PO 06/25/19 08:59 40 mg QAM TIMMY Administration Clopidogrel Bisulfate 75 mg 05/26/19 09:00 05/27/19 11:06 Plavix PO 06/25/19 08:59 75 mg QAM TIMMY Administration Cyanocobalamin 1,000 mcg 05/26/19 09:00 05/27/19 11:05 Vitamin B-12 PO 06/25/19 08:59 1,000 mcg QAM TIMMY Administration Heparin Sodium (Porcine) 5,000 units 05/26/19 09:00 05/27/19 20:10 Heparin Sodium (Porcine) SQ 06/25/19 08:59 5,000 units Q12 TIMMY Administration Cefepime HCl 2,000 mg/ Syringe 20 mls @ 5.5 mls/min 05/26/19 09:45 05/28/19 09:22 IV 06/05/19 09:44 5.5 mls/min Q12 TIMMY Administration Protocol Metoprolol Succinate 50 mg 05/25/19 21:00 05/28/19 09:22 Toprol Xl PO 06/24/19 20:59 50 mg BID TIMMY Administration Sennosides 8.6 mg 05/25/19 21:00 05/27/19 20:09 Senokot PO 06/24/19 20:59 8.6 mg HS TIMMY Administration Simvastatin 20 mg 05/25/19 21:00 05/27/19 20:09 Zocor PO 06/24/19 20:59 20 mg HS TIMMY Administration NPO Date Last Intake of Fluids: 05/28/19 Time Last Intake of Fluids: 00:00 Date Last Intake of Solids: 05/28/19 Time Last Intake of Solids: 00:00 Past Medical History Medical History Dementia (Chronic) A-fib (Chronic) CVA (cerebral vascular accident) (Chronic) embolism of right cerebellar artery CKD (chronic kidney disease), stage III (Chronic) Gout (Chronic) HTN (hypertension) (Chronic) Depression (Chronic) Dementia (Chronic) Stenosis of right carotid artery (Chronic) Exercise / Class Metabolic Activity III < 4 Walking/Shop/Light housework Past Family History Family History Mother , childbirth No problems noted. Past Surgical History Surgical History History of hemiarthroplasty of left hip (Chronic) History of hysterectomy (Chronic) History of hernia repair (Chronic) S/P HALEY-BSO Past Anesthesia History No Hx of Anesthesia Complications and No Family Hx of Anesthesia Complications History of PONV No Hx of PONV and No Hx of Motion Sickness Social History Smoking Status: Never smoker Hx Alcohol Use: No Alcohol type: beer and wine alcohol intake frequency: 3 or more drinks per day Hx Substance Use: No substance use type: does not use Physical Exam Vital Signs Last Vital Signs Temp 97.5 F L 05/28/19 07:18 Pulse 74 05/28/19 07:18 Resp 18 05/28/19 07:18 BP 152/88 H 05/28/19 07:18 Pulse Ox 98 05/28/19 07:18 ENMT Mouth: no dentition abnormality Thyromental Distance: > or= 3.5 Finger Breadths Mallampati Class: II Neck normal visual inspection Respiratory normal respiratory effort Auscultation: lungs clear to auscultation bilaterally Cardiovascular Rate/Rhythm: + abnormal rate and + abnormal rhythm Vessels: no carotid bruit Testing Laboratory Results 05/28/19 05:58 05/28/19 05:58 PT 10.7 Seconds (9.0-12.0) 05/25/19 14:30 INR 1.0 (0.9-1.1) 05/25/19 14:30 APTT 27.7 Seconds (21.0-31.0) 05/25/19 14:30 Urine Color Yellow 05/25/19 15:00 Urine Appearance Clear (Clear) 05/25/19 15:00 Urine pH 6.0 (4.5-7.5) 05/25/19 15:00 Ur Specific [place] 1.015 (1.000-1.030) 05/25/19 15:00 Urine Protein Trace (Negative) H 05/25/19 15:00 Urine Glucose (UA) Negative (Negative) 05/25/19 15:00 Urine Ketones Negative (Negative) 05/25/19 15:00 Urine Nitrite Negative (Negative) 05/25/19 15:00 Ur Leukocyte Esterase 3+ (Negative) H 05/25/19 15:00 Urine RBC >30 /hpf (0-4) H 05/25/19 15:00 Urine WBC >30 /hpf (0-5) H 05/25/19 15:00 Ur Epithelial Cells >30 /lpf (0-5) H 05/25/19 15:00 05/25/19 15:00 Urine Culture - Final Urine,Clean Catch Yeast not [place] albicans 05/27/19 Unknown Gram Stain - Final Hip,Right Aerobic and Anaerobic Culture - Preliminary Gram negative bacilli 05/25/19 13:40 Aerobic Blood Culture - Preliminary Blood No growth in Aerobic bottle after 48 hours. Anaerobic Blood Culture - Preliminary No growth in Anaerobic bottle after 48 hours. 05/25/19 12:50 Aerobic Blood Culture - Preliminary Blood No growth in Aerobic bottle after 48 hours. Anaerobic Blood Culture - Final Electrocardiogram Date: 04/03/19 Atrial fibrillation, rate 81 bpm Low voltage QRS Nonspecific ST and T wave abnormality Abnormal ECG When compared with ECG of 02-APR-2019 08:47, No significant change Confirmed by Abelardo Florian ([id number]) on 04/04/2019 1:02:04 PM Chest X-Ray Date: 05/25/19 IMPRESSION: 1. Patchy left greater than right bibasilar opacities suggest atelectasis versus pneumonitis. 2. Trace pleural effusions. 3. Cardiomegaly without overt pulmonary edema. Echocardiogram Date: 04/05/19 EF: 55-60% grade 3 diastolic dysfunction severely reduced RV systolic function AV sclerosis moderate, without significant aortic valvular stenosis severe tricuspid regurgitation pulmonary hypertension is present with PASP of 57 mmHg Other Testing carotid doppler 04/04/19 IMPRESSION: 1. Atherosclerotic plaque with evidence of 50-69% stenosis of the proximal right internal carotid artery by velocity criteria. 2. There is no sonographic evidence of hemodynamically significant stenosis in the left carotid arterial system. 2. Antegrade flow is shown in the vertebral arteries.
[2019-05-28] MEDS ORDERED: ePHEDrine sulfate 50 MG/ML AMP IV PRN (13:43)
[2019-05-28] MEDS ORDERED: ONDANSETRON INJ 2 MG/ML 2 ML VIAL IV PRN ×2 (13:43→19:53)
[2019-05-28] MEDS ORDERED: ATROPINE SULFATE 0.1 MG/ML 10ML SYR IV PRN (13:43)
[2019-05-28] MEDS ORDERED: fentaNYL citrate 100 MCG/2 ML VIAL IV PRN (13:43)
[2019-05-28] MEDS ORDERED: ALBUMIN HUMAN 5% 12.5 GM/250 ML VIAL IV ONE (13:48)
[2019-05-28] MEDS ORDERED: BACITRACIN INJ 50,000 UNIT VIAL ONE ×2 (14:03→15:59)
--- NOTE | 2019-05-28 14:51 | Infectious Disease Progress Nt ---
Date of Service May 28, 2019 Assessment & Plan (1) Infected surgical wound: Patient with surgical site infection following hip surgery, with large collection growing gram-negative bacilli, suspect this will be Enterobacter previously identified. Given persistence of positive culture, would think that operative I&D indicated. Await follow-up with orthopedic surgery. We will continue to follow. Continue cefepime for now. 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 Large amount of fluid aspirated, growing gram-negative bacilli. Patient appears comfortable, offers no new complaints. Remains afebrile. Review of Systems Review of Systems: All systems reviewed & are unremarkable except as noted in HPI & below Physical Exam Constitutional: WD/WN, vitals as above comfortable; no acute distress Eyes: PERRL, conjunctivae normal, anicteric sclerae ENMT: external ear and nose normal, oropharynx normal Neck: trachea midline, no thyromegaly neck nontender Respiratory: normal respiratory effort, lungs clear to auscultation normal percussion; does not use accessory muscles Cardiovascular: Rate/Rhythm: + irregularly irregular Heart Sounds: normal S1 and normal S2; no gallop, no murmur and no cardiac rub Vessels: normal peripheral pulses; no JVD Gastrointestinal (Abdomen): normal bowel sounds, soft, nontender, no hepatosplenomegaly Musculoskeletal: no cyanosis or clubbing, extremities motor strength 5/5 Spine: thoracic spine normal to inspection and lumbar spine normal to inspection; no cervical spinal tenderness Skin: no rashes, warm and dry normal turgor and + wound (Surgical wound right hip closed, no active drainage at present, no signific) Neurologic: patellar DTR's 2+ bilat, sensation intact no focal motor deficits Psychiatric: A+Ox3, euthymic affect Orientation: cooperative Lymphatic: no cervical or axillary lymphadenopathy no inguinal lymphadenopathy Results & Data Vital Signs (Past 12 Hours) Vital Signs Temp Pulse Resp BP Pulse Ox 05/28/19 13:22 36.5 C 75 16 140/78 100 05/28/19 07:18 36.4 C L 74 18 152/88 H 98 Laboratory Results Short CBC 05/28/19 Range/Units 05:58 WBC 6.62 (4.8-10.8) K/uL Hgb 8.3 L (12.0-16.0) g/dL Hct 26.4 L (37-47) % Plt Count 319 (130-400) K/uL BMP 05/28/19 05:58 Sodium 139 Potassium 3.5 Chloride 108 H Carbon Dioxide 26 BUN 22 H Creatinine 1.15 Glucose 79 Calcium 8.4 L Diagnostic Findings Microbiology 05/25/19 15:00 Urine,Clean Catch Urine Culture - Final Yeast not [place] albicans 05/27/19 Unknown Hip,Right Gram Stain - Final 05/27/19 Unknown Hip,Right Aerobic and Anaerobic Culture - Preliminary Gram negative bacilli 05/25/19 13:40 Blood Aerobic Blood Culture - Preliminary No growth in Aerobic bottle after 48 hours. 05/25/19 13:40 Blood Anaerobic Blood Culture - Preliminary No growth in Anaerobic bottle after 48 hours. 05/25/19 12:50 Blood Aerobic Blood Culture - Preliminary No growth in Aerobic bottle after 48 hours. 05/25/19 12:50 Blood Anaerobic Blood Culture - Final cc: ~ US extremity nonvascular CLINICAL HISTORY: Right lateral thigh/ s/p incision and drainage right hip wound COMPARISON STUDY: Right femur CT 04/22/2019. FINDINGS: There is a slightly complex subcutaneous fluid collection within the right lateral hip measuring approximately 20 cm in length and up to 5 cm in thickness. This is similar to the prior study. This contains multiple thin septations. IMPRESSION: A 20 x 5 cm slightly complex subcutaneous fluid collection within the right lateral hip containing multiple thin septations. This could represent a postoperative seroma, hematoma, or abscess in the appropriate clinical setting. Electronically signed by: Cal Griggs M.D. 05/26/2019 4:31 PM Dictated: 05/26/19 1629 Transcribed: 05/26/19 1629 PG Care Time/CCT Total # of Minutes Spent Total Time Spent with Patient: Total time spent is greater than 50% in coordination of care (as documented) at patient's floor/unit and/or counseling patient:
--- NOTE | 2019-05-28 14:52 | History & Physical Bridge Note ---
Date of Service May 28, 2019 History & Physical Bridge Note I have examined the patient, reviewed the History & Physical and in the interval since the performance of the History & Physical I have noted the following changes of clinical significance: Will require evacuation hematoma right hip, irrigation and debridement with possible femoral head and polyethylene liner exchange.
[2019-05-28] MEDS ORDERED: PROPOFOL IV EMULSION 10 MG/ML 20 ML VIAL IV ONE (15:47)
[2019-05-28] MEDS ORDERED: LIDOCAINE HCL 2% 2 ML VIAL/AMP(20MG/ML) INFIL ONE (15:47)
[2019-05-28] MEDS ORDERED: ONDANSETRON INJ 2 MG/ML 2 ML VIAL ONE (15:47)
[2019-05-28] MEDS ORDERED: ROCURONIUM BROMIDE 10 MG/ML 5 ML VIAL ONE (15:47)
[2019-05-28] MEDS: ASPIRIN 81 MG ECTAB PO SCH ×2 (17:13→22:43)
[2019-05-28] MEDS: CITALOPRAM 40 MG TAB PO SCH (17:13)
[2019-05-28] MEDS: ALLOPURINOL 100 MG TAB PO SCH (17:14)
[2019-05-28] MEDS: HEPARIN SOD 5,000 UNIT/0.5 ML VIAL SQ SCH (17:14)
[2019-05-28] MEDS: CYANOCOBALAMIN 500 MCG TABLET (VITAMIN B-12) PO SCH (17:14)
[2019-05-28] MEDS: ASCORBIC ACID 500 MG TAB PO SCH ×2 (17:14→22:43)
[2019-05-28] MEDS: CLOPIDOGREL BISULFATE 75 MG TAB PO SCH (17:14)
[2019-05-28] MEDS ORDERED: SUGAMMADEX SODIUM 200 MG/2 ML VIAL IV ONE (17:41)
[2019-05-28] MEDS ORDERED: NOREPINEPHRINE BITARTRATE 1 MG/ML 4 ML VIAL IV ONE (17:43)
[2019-05-28] MEDS ORDERED: VASOPRESSIN 20 UNIT/ML VIAL ONE (18:10)
[2019-05-28 18:14] LABS: iSTAT Hemoglobin 7.8 g/dl (12.0-16.0); iSTAT Ionized Calcium 1.16 mmol/l (1.12-1.32); iSTAT Potassium 3.6 mEq/L (3.3-5.0)
[2019-05-28 18:14] LABS: iSTAT Hemoglobin 6.5 g/dl (12.0-16.0); iSTAT Ionized Calcium 1.16 mmol/l (1.12-1.32); iSTAT Potassium 3.8 mEq/L (3.3-5.0)
--- NOTE | 2019-05-28 18:55 | Post Operative Brief Note ---
Immediate Post Op Note v1 Date of Surgery May 28, 2019 Pre & Post Diagnosis Operation Date: 05/28/19 07:00 Pre-Op Diagnosis: Recurrent septic hematoma right hip, retained cerclage cables x2, avulsion fracture greater trochanter Post-Op Diagnosis: Recurrent septic hematoma right hip, retained cerclage cables x2, nonunion avulsion fracture greater trochanter, infected hemiarthroplasty right hip I identified the patient and participated in the time-out.: Yes Procedure Operation Date: 05/28/19 07:00 Actual Procedures p Right Hip Wound Incision and Drainage recurrent infected hematoma, Irrigation and Debridement right hip infected hemiarthroplasty, Right Bipolar Hemiarthroplasty Head and Liner Exchange, removal cables x2, excision nonunion avulsion fracture greater trochanter- Trev Gupta DO Surgeon Trev Gupta DO Vegetable Scullion Weston Felix PA-C Estimated Blood Loss 400 Findings Consistent with Post-Op Diagnosis Fluids Packed red cells x2 units, albumin, crystalloid Specimens Femoral head and polyethylene liner right hip; aerobic anaerobic Gram stain superficial hematoma right hip; Aerobic anaerobic Gram stain deep joint capsule right hip; Synovial tissue for frozen section right hip deep Drains Hemovac Drain (10 Vincentian X2 superficial; 10 Vincentian x2 deep; large Bella drain superficial) Anesthesia Type General Complications none Disposition Accompanied Patient To Recovery: Yes Disposition: Recovery Room
[2019-05-28 19:22] LABS: Hematocrit (blood only) 24.3 % (37-47); Hemoglobin 8.2 g/dL (12.0-16.0)
--- NOTE | 2019-05-28 19:26 | XRay Report ---
XR hip 1V RT w pelvis CLINICAL HISTORY: Postoperative evaluation. COMPARISON: Right hip radiographs May 25, 2019. FINDINGS: Alignment of the right hip arthroplasty is anatomic. Skin bartolo are present. Cerclage wi res are noted longer visualized. The fracture fragment involving the greater trochanter shown on prio r exams is no longer visualized. Left hip arthroplasty is noted. Drains are in place. IMPRESSION: Postoperative findings, as described above. Electronically signed by: Harjeet Myers M.D. 05/28/2019 7:24 PM
[2019-05-28] MEDS ORDERED: MIDAZOLAM HCL 1 MG/ML 2ML VIAL ONE (19:42)
[2019-05-28] MEDS ORDERED: MIDAZOLAM HCL 5 MG/ML 1 ML VIAL IV STA (19:47)
[2019-05-28] MEDS ORDERED: BISACODYL 10 MG SUPP PR PRN (19:53)
[2019-05-28] MEDS ORDERED: NALOXONE HCL 0.4 MG/1 ML VIAL/CARP IV PRN (19:53)
[2019-05-28] MEDS ORDERED: MAGNESIUM HYDROXIDE SUSP 30 ML UDC PO PRN (19:53)
[2019-05-28] MEDS ORDERED: HYDROmorphone INJ 0.5 MG/0.5 ML SYR IV PRN (19:53)
[2019-05-28] MEDS ORDERED: NOREPINEPHRINE BIT INJ 8 MG in DEXTROSE 5% 500 ML IV SCH (20:15)
--- NOTE | 2019-05-28 20:30 | Procedure Note ---
Procedure Note Date of Service May 28, 2019 Note Central Line Note Date and time of procedure: Consent: Informed consent obtained from the patient or designated proxy. The inherent risks, expected benefits, treatment alternatives, as well as the technical aspects of the procedure were discussed with the patient and a full explanation was given. Patient was given the opportunity to ask questions, which were answered to their satisfaction. Time Out: A time-out was performed verifying correct patient with two identifiers, procedure, site, positioning, and special equipment (if needed). Monitors Attached: EKG BP Pulse Oximetry CO2 Pre-Medication: [1] mg Midazolam [] mcg Fentanyl [] mg Propofol [] mg Hydromorphone [] mg Morphine [] mg Ketamine Side: X Right Location: Internal Jugular Prep: Chloraprep sterile drape sterile procedures used Local: [] ml 1% lidocaine [1]ml 2% lidocaine Ultrasound Guidance: X Yes RONALDO altman placed in PACU for pressors/fluids/blood product administration. Sterile seldinger technique used. IJ placement confirmed with US and transduction. Blood return and flushed all 3 ports. Patient tolerated the procedure well, 1cc EBL. Sterile dressing with biopatch placed. CXR ordered. Coding
--- NOTE | 2019-05-28 20:32 | Anesthesiology Progress Note ---
Date of Service May 28, 2019 Anesthesia Post Procedure Vital Signs Vital Signs: Temp Pulse Pulse Resp BP BP Pulse Ox 05/28/19 20:20 105 H 18 90/66 L 99 05/28/19 20:10 111 H 19 92/58 L 99 05/28/19 20:00 103 H 20 73/63 L 100 05/28/19 19:50 101 H 20 59/49 L 96 05/28/19 19:40 36.6 C 98 H 24 73/56 L 96 05/28/19 19:30 100 H 22 81/56 L 99 05/28/19 19:20 86 17 85/66 L 05/28/19 19:10 87 19 90/63 L 05/28/19 19:00 85 20 84/61 L 05/28/19 18:50 36.1 C L 86 19 71/55 L 05/28/19 13:22 36.5 C 75 16 140/78 100 05/28/19 07:18 36.4 C L 74 18 152/88 H 98 05/27/19 23:59 36.8 C 88 16 145/84 H 99 Transfer of Care Handoff Completed per policy Notes Mental Status: alert / awake / arousable Patient Amnestic to Procedure: Yes Nausea / Vomiting: adequately controlled Pain: adequately controlled Airway Patency, RR, SpO2: stable & adequate BP & HR: see Notes below Hydration State: stable & adequate Anesthetic Complications: no major complications apparent Notes: Patient still volume depleted. Receiving low dose norepinephrine and IV fluids. May need more blood clinically, although current hemoglobin is adequate. I have spoken with the drawing supervisor who will consult on the patient tonight in the ICU. Continued care by critical care and orthopedic surgery.
--- NOTE | 2019-05-28 20:33 | XRay Report ---
XR chest 1V portable CLINICAL HISTORY: right IJ central line placement COMPARISON STUDY: Chest radiograph May 25, 2019. FINDINGS: There is no pneumothorax following placement of a right internal jugular central line. Cath eter tip projects over the distal SVC. A small left pleural effusion is noted. Left basilar opacity h as increased. There are old left rib fractures. There is no evidence for pulmonary edema. Cardiomegal y is unchanged. 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 Calcif ied AP window lymph node is noted. IMPRESSION: 1. No pneumothorax following placement of a right internal jugular central line. 2. Small left pleural effusion with increasing left basilar opacity which may reflect pneumonia or at electasis. Electronically signed by: Harjeet Myers M.D. 05/28/2019 8:31 PM
--- NOTE | 2019-05-28 20:51 | Hospitalist Progress Note ---
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 Cultures grew Enterobacter cloacae and Corynebacterium sp. Most recently treated with ertapenem, but noted to be febrile at [facility]. ID and Ortho consulted. Aspirate from right thigh growing gram-negative bacilli. Continue cefepime. Further management per Orthopedics. (2) Abnormal urinalysis: UA showed + leukocyte esterase, negative nitrites, many RBC's, many WBC's, many epithelial cells. Urine culture growing 50,000 yeast. Suspect contaminated specimen. (3) Atrial fibrillation: Rate controlled on metoprolol. Not anticoagulated because deemed to be high risk. (4) Cerebrovascular disease: History of ischemic stroke. Not anticoagulated because deemed to be high risk. Continue aspirin and clopidogrel. (5) HTN (hypertension): Continue metoprolol. (6) CKD (chronic kidney disease), stage III: Serum creatinine at time of admission 1.20. Creatinine today = 1.15. (7) Hypokalemia: Serum K at time of admission 3.0. Received replacement. K today = 3.6. (8) Anemia: Postop anemia. Required transfusions after surgery about 2 weeks ago. Hgb at time of admission 7.6. Hgb 05/26 = 7.8. Follow H/H. Fe 17. Started FeSO4. Hemoglobin today = 8.3. (9) Dementia: Monitor for delirium. (10) DVT prophylaxis: Receiving SQ heparin. Ambulate. (11) Discharge planning issues: Anticipated return to [facility] for skilled care. Addendum (2019): Patient taken to operating room this afternoon for evacuation of right hip hematoma. Estimated blood loss was around 400 mL. Became hypotensive during the procedure. Received 2 units packed RBCs, crystalloid resuscitation, and norepinephrine. Transferred to ICU postoperatively. Exam: General-somnolent, no acute distress Neck-right IJ central venous catheter Lungs-few bibasilar rales Heart irregularly irregular, no gallop appreciated Abdomen-soft, nontender Extremities-right thigh bandaged; no pretibial edema or calf tenderness Neuro-mild confusion Labs: Hemoglobin drawn at 1916 = 8.2. POC BMP at 1731: Sodium 139, potassium 3.8, chloride 103, CO2 25, BUN 19, creatinine 1.0, glucose 94. A/P: Intraoperative hypotension. Blood loss may be contributing factor, but patient remained hypotensive after receiving packed RBCs and IV fluids. Consider sepsis. Recent cultures from right hip grew Enterobacter cloacae. Cultures from yesterday growing gram-negative bacilli, ID and sensitivities pending. Has been receiving cefepime. May require broader coverage. Case discussed with Critical Care Medicine and they will be managing patient in the ICU. Patient has had several loose stools. Check stools for C. difficile. Subjective Recheck for multiple problems. Patient seen in their room around 1100. No new problems / complaints. No fever or chills. Denied diarrhea, but nursing reports loose stools. Review of Systems: Constitutional- no fever. Cardiac- no chest pain. Pulmonary- no cough or SOB. GI- no nausea, vomiting. - no urinary symptoms. Otherwise, as noted above. Physical Exam Constitutional: no acute distress Respiratory: no respiratory distress Auscultation: lungs clear to auscultation bilaterally Cardiovascular: Rate/Rhythm: + irregularly irregular Heart Sounds: no gallop, no murmur and no cardiac rub Vessels: no JVD Extremities: no calf tenderness and no edema Gastrointestinal (Abdomen): normal bowel sounds, soft, nontender, no hepatosplenomegaly Musculoskeletal: Extremities: + extremities abnormal to inspection (right hip incision with bartolo and sutures; swelling of proximal thigh) Skin: no rashes, warm and dry Psychiatric: Orientation: alert; + not oriented x 3 (oriented to person, hospital, president, but not year) Results & Data Vital Signs (Past 12 Hours) Vital signs at 0718: Temperature 36.4, pulse 74, respirations 18, BP 152/88. Laboratory Results Hemoglobin 8.3, white count 6620, platelet count 319,000. Sodium 139, potassium 3.5, chloride 108, CO2 26, BUN 22, creatinine 1.15, glucose 79. Wound culture from aspirate right thigh 05/27 growing gram-negative bacilli. (1) Anemia Anemia type: unspecified type Qualified Code(s): D64.9 - Anemia, unspecified
[2019-05-28] MEDS ORDERED: VASOPRESSIN 20 UNITS in 0.9 % SODIUM CHLORIDE 100 ML IV SCH (20:53)
[2019-05-28] MEDS ORDERED: SENNA 8.6 MG TAB PO SCH (21:00)
[2019-05-28] MEDS ORDERED: DOCUSATE SODIUM 100 MG CAP PO SCH (21:00)
[2019-05-28] MEDS ORDERED: VANCOMYCIN CONSULT ACTIVE PRN (21:09)
[2019-05-28] MEDS ORDERED: VANCOMYCIN HCL 1,500 MG in SODIUM CHLORIDE 0.9% 500 ML IV ONE (21:09)
[2019-05-28] MEDS ORDERED: GLUCAGON IV STA (21:11)
--- NOTE | 2019-05-28 21:16 | Critical Care Consultation ---
Date of Consultation May 28, 2019 Assessment & Plan (1) Shock circulatory: -- Shock Likely hypovolemic/hemorrhagic given that the extremities are cold. Although patient did come in with sepsis. Patient came out of the OR on Levophed 0.2 unit mics per KG per minute. Patient is cold extremities, ejection fraction was 65% as per previous echo done not available. As per signout from anesthesia there was approximately 500 mL of blood loss in the OR, patient was given 2 units of PRBC with the last hemoglobin that we have is 8.2. Patient looks very pale examination. We will repeat H&H stat Patient IVC collapsible, hyperdynamic left ventricle, give at least a liter of fluid and reassess. Continue Levophed and add vasopressin to titrate map of 65. Do septic work-up blood culture, ESR, CRP, procalcitonin, follow-up lactate. Will give 1 dose of vancomycin, patient on cefepime already. Follow-up cortisol level. Repeat stat BMP. We will try to put an arterial line and so that we have continuous blood pressure monitoring. Try to call Jaqueline Cardozo at [phone] but he went to the answering service. --Acute on chronic blood loss anemia Monitor H&H Use as needed for hemoglobin less than 7 Hold all antiplatelets and anticoagulants for the time being. --Infected right hip with hematoma Status post revision 05/28/[address], orthopedics in behavioral health case manager for signs of any bleeding --History of A. fib Hold anticoagulation --Prognosis guarded (2) Acute blood loss anemia: (3) Atrial fibrillation: (4) Cerebrovascular disease: (5) Subcapital fracture of hip: (6) Infected surgical wound: History of Present Illness Reason for Consultation: Shock Attending Physician: Sarabjit Osborn MD History of Present Illness 78-year-old female with past medical history of A. fib, recent CVA, mild dementia, history of mechanical fall status for which she needed right hip replacement which got infected patient was initially discharged on ertapenem but she had to come back because of recurrent wound on the right hip and hematoma on that side. Patient went to the OR today for the revision of the wound, hip and the hematoma that the patient had. As per the anesthesiologist in the OR patient had blood loss of approximately 500 mL. Patient was given 2 units of PRBC. Patient was started on Levophed in the OR to the peripheral line. No fever appreciated in the OR. Patient's general anesthesia was induced by propofol. It was confirmed that she did not get any etomidate. At the time of examination in the ICU. Patient is still somnolent on 0.2 mics per KG per minute of Levophed with map in the low 50s. Patient saturating 96% on 15 L facial mask. Patient does reply to simple questions. She knows her name she knows her date of . Denies any chest pain, no shortness of breath, no headache, no nausea, no vomiting. Does complain of pain in the right leg. Bedside ultrasound: Hyperdynamic left heart, no pericardial effusion, RVOT normal in size, IVC less than 1 cm and collapsible. No B-lines appreciated bilaterally anteriorly and posteriorly. No effusion on the right side. Poor study on the left costophrenic angle. Allergies Allergy/AdvReac Type Severity Reaction Status Date / Time Cipro Allergy Unknown unknown Verified 07/17/17 19:21 ciprofloxacin Allergy Unknown unknown Verified 05/25/19 14:01 clindamycin Allergy Unknown unknown Verified 05/25/19 14:01 lisinopril Allergy Unknown unknown Verified 05/25/19 14:01 Home Medications Home Medications Medication Instructions Recorded Confirmed Type allopurinol 100 mg PO QAM 04/02/19 05/26/19 History amlodipine 5 mg PO QAM 04/02/19 05/26/19 History citalopram 40 mg PO QAM 04/02/19 05/26/19 History clopidogrel [Plavix] 75 mg PO QAM 04/02/19 05/26/19 History cyanocobalamin (vitamin B-12) 1,000 mcg PO QAM 04/02/19 05/26/19 History diclofenac sodium 2 g TOPICAL QID 04/02/19 05/26/19 History ferrous gluconate 324 mg PO QAM 04/02/19 05/26/19 History folic acid 1 mg PO Q2D 04/02/19 05/26/19 History metoprolol succinate 50 mg PO BID 04/02/19 05/26/19 History oxybutynin chloride 5 mg PO BID 04/02/19 05/26/19 History sennosides [senna] 8.6 mg PO HS 04/02/19 05/26/19 History simvastatin 40 mg PO HS 04/22/19 05/26/19 History ascorbic acid (vitamin C) [Vitamin 500 mg PO BID 05/13/19 05/26/19 History C] multivitamin 1 cap PO QAM 05/13/19 05/26/19 History aspirin [Ecotrin Low Strength] 81 mg PO BID 30 Days #60 tab 05/18/19 05/26/19 Rx oxycodone-acetaminophen [Percocet] 1 - 2 tab PO Q6H PRN #30 tab 05/18/19 05/26/19 Rx acetaminophen [Tylenol] 650 mg PO Q6H PRN 05/25/19 05/26/19 History ertapenem 500 mg IM QAM 05/25/19 05/26/19 History Patient History Medical History Dementia (Chronic) A-fib (Chronic) CVA (cerebral vascular accident) (Chronic) embolism of right cerebellar artery CKD (chronic kidney disease), stage III (Chronic) Gout (Chronic) HTN (hypertension) (Chronic) Depression (Chronic) Dementia (Chronic) Stenosis of right carotid artery (Chronic) Surgical History History of hemiarthroplasty of left hip (Chronic) History of hysterectomy (Chronic) History of hernia repair (Chronic) S/P HALEY-BSO Family History Mother , childbirth No problems noted. 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 Required: No Beliefs That Will Affect Care: None marital status: / Current Living Situation: Senior Care Current Living Situation Comment: [facility] Other Information That Helps Us Care for You: No Feels Safe at Home: Yes Safety Concerns: Feels Safe At This Time Smoking Status: Never smoker Second Hand Exposure: No ; Hx Alcohol Use: No Hx Substance Use: No Review of Systems Review of Systems: All systems reviewed & are unremarkable except as noted in HPI & below Physical Exam Physical Exam: Constitutional: Somnolent HEENT: PERRLA, arcus senilis bilaterally, pale conjunctiva Respiratory system: Decreased air entry bilaterally, no wheeze, no rhonchi, no crackles CVS: S1-S2 positive, no murmurs or gallops, tachycardia Abdomen: Soft, nontender, nondistended, positive bowel sounds x4 Extremities: +2 pulses bilaterally radialis/ dorsalis pedis, no edema, no cyanosis Neuro: Somnolent but arousable, knows her name and date of . Patient still under effect of anesthesia Psych: Flat mood and affect G/U: Positive Chiu Skin: + turgor decreased Lymphatic: no cervical or axillary lymphadenopathy Results & Data Vital Signs (Past 12 Hours) Vital Signs Temp Pulse Pulse Resp BP BP Pulse Ox 05/28/19 20:20 105 H 18 90/66 L 99 05/28/19 20:10 111 H 19 92/58 L 99 05/28/19 20:00 103 H 20 73/63 L 100 05/28/19 19:50 101 H 20 59/49 L 96 05/28/19 19:40 36.6 C 98 H 24 73/56 L 96 05/28/19 19:30 100 H 22 81/56 L 99 05/28/19 19:20 86 17 85/66 L 05/28/19 19:10 87 19 90/63 L 05/28/19 19:00 85 20 84/61 L 05/28/19 18:50 36.1 C L 86 19 71/55 L 05/28/19 13:22 36.5 C 75 16 140/78 100 [facility] Procedure Codes (Charges) Pulmonary/Thoracic Procedure 1: Pulmonary and Thoracic: 21903 US, Chest, real time with imaging documentation Coding Level of Care Code New Pt Critical Care 1st 30-74 mins Patient Type New Diagnoses Shock circulatory R57.9 Acute blood loss anemia D62 Atrial fibrillation I48.91 Cerebrovascular disease I67.9 Subcapital fracture of hip S72.011A Encounter type: initial encounter Fracture type: closed Laterality: right Infected surgical wound T81.49XA CPT Codes Pulmonary/Thoracic - Pulmonary and Thoracic: 43336 US, Chest, real time with imaging documentation ([id number]) Time Spent (min) 65 Comment Greater than 50% of the time was spent with the patient to manage life- threatening/critical illness. This excludes any procedures performed. (1) Subcapital fracture of hip Encounter type: initial encounter Fracture type: closed Laterality: right Qualified Code(s): S72.011A - Unspecified intracapsular fracture of right femur, initial encounter for closed fracture
[2019-05-28] MEDS ORDERED: metroNIDAZOLE 500 MG/100 ML BAG IV SCH (21:30)
[2019-05-28 21:35] LABS: Hematocrit (blood only) 20.3 % (37-47); Hemoglobin 6.8 g/dL (12.0-16.0); Mean Corpuscular Hemoglobin 31.8 pg (25-34); Mean Corpuscular Hgb Conc 33.5 g/dL (32-36); Mean Corpuscular Volume 94.9 fL (80-100); Mean Platelet Volume 8.7 fL (7.4-10.4); Platelet Count 195 K/uL (130-400); RDW Coefficient of Variation 16.3 % (11.5-14.5); RDW Standard Deviation 55.8 fL (36.4-46.3); Red Blood Count 2.14 M/uL (4.2-5.4); White Blood Count 18.97 K/uL (4.8-10.8)
[2019-05-28 21:43] LABS: Albumin Globulin Ratio 0.8 (0.9-2); Albumin Level 1.9 gm/dl (3.4-5.0); BUN Creatinine Ratio 14.8 (10-20); Bilirubin,Total 1.4 mg/dl (0.2-1); C Reactive Protein 3.39 mg/dl (0-0.29); Creatinine Clr Calc Pharmacy 32.4 ml/min; Est GFR (African American) 47.5; Globulin 2.3 gm/dl (2.5-4.0); Total Protein 4.2 gm/dl (6.4-8.2)
--- NOTE | 2019-05-28 22:13 | Procedure Note ---
Procedure Note Date of Service May 28, 2019 ARTERIAL LINE PROCEDURE NOTE: Procedure: Arterial Line Placement Attending: Dr. Dany Ruby MD Indication: Monitoring on Pressors Anesthesia: None Emergency consent was done as family could not be reached and patient is on 2 pressors. A time-out was completed verifying correct patient, procedure, site, positioning, and implant(s) or special equipment if applicable. Allens test was performed to ensure adequate perfusion. Patients left wrist was prepped and draped in the usual sterile fashion. Ultrasound guidance was used to aid needle placement. A 20g Arrow arterial line was introduced into the left radial artery. Catheter was threaded, and the needle was removed with appropriate pulsatile blood return. Good waveform was observed on the monitor. The patient tolerated the procedure well. Blood Loss: Minimal Complications: None Coding CPT Codes Tubes, Drains, and Vasc Access - Tubes, Drains, and Vasc Access: Place Catheter In Artery ([id number]) Tubes, Drains, and Vasc Access - Tubes, Drains, and Vasc Access: Ultrasound Guidance For Vascular ([id number])
[2019-05-28] MEDS: SIMVASTATIN 20 MG TAB PO SCH (22:43)
--- NOTE | 2019-05-28 23:00 | Operative Report ---
DATE OF OPERATION: 05/28/2019 PREOPERATIVE DIAGNOSES: 1. Right recurrent septic hematoma, right hip. 2. Retained cerclage cables x2, proximal femur. 3. Avulsion fracture, greater trochanter. POSTOPERATIVE DIAGNOSES: 1. Right recurrent septic hematoma, right hip. 2. Retained cerclage cables x2, proximal femur. 3. Nonunion avulsion fracture, greater trochanter. 4. Infected hemiarthroplasty, right hip. PROCEDURES: 1. Right hip incision and drainage, recurrent infected hematoma. 2. Irrigation and debridement, extensive right hip infected hemiarthroplasty. 3. Right bipolar hemiarthroplasty, head and liner exchange. 4. Removal of hardware cables x2, deep bone implants. 5. Excision, nonunion avulsion fracture of greater trochanter. SURGEON: Trev Gupta DO PUBLISHING SYSTEMS ANALYST: LEONILA Lyles, who was present for patient positioning, sterile prep and drape, management of retractors and instruments. He was present through the critical portions of the case including wound closure, application of sterile dressing and transport of the patient to recovery. ANESTHESIA: General endotracheal tube. SPECIMENS: 1. Femoral head and polyethylene liner, right hip. 2. Aerobic, anaerobic, Gram stain, superficial hematoma, right hip. 3. Aerobic, anaerobic, Gram stain, deep joint capsule, right hip. 4. Synovial tissue for frozen section, deep right hip. DRAINS: 10-Pakistani Hemovac drains x2, superficial, and 10-Pakistani Hemovac drains x2, deep, with a large Prevena drain, superficial tissue. COMPLICATIONS: None. BLOOD LOSS: 400 mL. PERTINENT HISTORY: This is an 78-year-old female who initially sustained a traumatic fall with fracture of her right hip. She underwent hemiarthroplasty and was making progress with her usual recovery course and developed some drainage in the right hip. She was treated conservatively initially. She continued to have drainage from the right hip, was seen in clinic, referred back to [facility] and placed on IV antibiotics. Had wound culture, noted to have a hematoma. She underwent irrigation and debridement of the hematoma and had a sealed incision for several weeks with no persistent drainage. She presented to the [facility] with fevers and recurrent hematoma. Ultrasound demonstrated a large hematoma superficially. No evidence of deep fluid. The patient had approximately 250 mL of the fluid aspirated; however, grew over 40,000 white cells within the specimen and decision was made for incision and drainage of the recurrent hematoma with possibility of head and liner exchange. The patient was then scheduled for surgery as indicated. All potential risks, benefits, complications, alternatives, rehab, potential for incomplete relief of symptoms, need for further surgery, DVT, PE, , persistent pain, swelling, scarring, weakness, neurovascular injury, wound complications, hardware failure, nonunion, malunion, and bone fracture were discussed with the patient. The patient decided to proceed with the procedure as indicated. DESCRIPTION OF PROCEDURE: The patient was taken to the operative suite and placed supine on the operating room table. After review of the consent and identification of the proper operative site, the patient was anesthetized and endotracheal tube was placed. Next, the patient was rolled to her left lateral decubitus position with the affected side up. A Stulberg positioner was used to stabilize and position the patient's pelvis. All bony prominences were properly padded and protected. After a surgical timeout was performed and sterile prep and drape was performed of the right hip, a 10-blade scalpel was used to make an incision over the lateral aspect of the right hip at the site of prior incision. Previously placed sutures were identified and removed with a hemostat. The capsule of the hematoma was punctured with a 10-blade scalpel and noted to have bloody discharge. It appeared to have some degree of thickness to it consistent with infected hematoma. This was cultured for aerobic, anaerobic, Gram stain. Next, this was irrigated with pulsatile lavage. There was noted to be again no obvious puncture or seepage from deep tissues into the area of infected hematoma. The tissue; however, had the appearance that it was a worsening infection with soft tissue degradation and glycocalyx formation. Based upon the recurrent nature, the patient's continued fevers, and elevated white counts, decision was made to open the deep tissues. Once the iliotibial band was opened, sutures were encountered, sutures were removed with hemostats. There was noted to be a separation at the greater trochanter with communication deep. Sutures were intact. The previously placed cerclage wires were intact distally and proximally. The greater trochanter had migrated superiorly and at this interface, there was communication to the deep joint. Next, the aerobic, anaerobic, Gram stain specimen was harvested from the deep joint capsule. This was passed off as specimen. The synovium was then harvested and sent for frozen section. Appearance of the tissue was that of some degree of film not obviously infected with no evidence of gross purulence. It was a film throughout the deep soft tissues adjacent to the joint capsule and cables and joint implants. Again, no gross abscess or purulence noted. Next, the dissection was then performed anterior aspect of the hips to proceed along the previously made tissue planes, which were adherent to the proximal femur. The electrocautery was used to dissect down to the anterior aspect of the femur the vastus lateralis. Yuliya retractors were placed anteriorly. The abductor split was localized and then incised with a 10-blade scalpel and continued dissection with electrocautery. Next, careful dissection was performed around the hip joint capsule and the hemiarthroplasty head with electrocautery and 10-blade scalpel. The hip was then gently dislocated. The head was then removed from the femoral trunnion and the proximal femoral component was then assessed by screwing the stunt performer into the proximal femur and then several sharp taps were placed on the femoral component, there was no evidence of loosening. There was no purulence and no fluid pockets around the femoral component. Next, a curved curette was then used to curettage around the proximal femur and the cerclage wires that were previously placed were then removed. The decision was made to maintain position of the proximal femoral component and first a rongeur and a large curette was then used to curette all surfaces from deep capsule extending superficially through all tissue planes to the level of the skin. Once this was completed, the filmy material had been loosened and then pulsatile lavage approximately 6 liters with bacitracin was then used to lavage all surfaces within the hip. Next, the Versajet with approximately 2 liters was then used to treat all surfaces from deep extending superficially to the level of the skin. Also note that the femoral component specifically and the acetabulum were carefully treated with the Versajet and then extending through all soft tissues extending superficially to the skin. Once this was completed, the YODIL electrocautery device was used to carefully cauterize any bleeding tissue. Next top gloves, top sheet, and instruments were changed. I used a [place] V40 femoral head, 26 mm x negative 3 mm neck length and a 46 mm UHR universal head bipolar component with a 26 mm inner diameter was implanted. This was then reduced into the hip joint capsule, stable reduction, and the pulsatile lavage with another 3 liters with bacitracin was then used to cleanse all surfaces. As this was suctioned dry, the greater trochanter avulsion fracture was then sharply excised with a 10-blade scalpel. The 2 mm drill bit was used to drill drill holes in the proximal aspect of the femur, the passing #5 FiberWire suture for deep enhanced capsular closure. Prior to tying the sutures, 10-Pakistani Hemovac drains x2 were placed in the deep capsule exiting anterolateral aspect of the hip. Next the sutures were tied and cut and then deep closure was continued with closure of the abductor split and the vastus lateralis with #1 Vicryl sutures. Next, 10-Pakistani Hemovac drains x2 were placed in the superficial layer just outside the iliotibial band after the iliotibial band was closed with interrupted #1 Vicryl sutures. There was no evidence of any abscess or any fluid collection. Next, the dermis was closed using buried interrupted 2-0 Vicryl and the skin was closed using skin bartolo. A sterile compressive Prevena suction drain was applied to the tissue. The patient was then awakened, rolled supine, taken to recovery in stable condition. Of note, her leg lengths were equal and moving all 4 extremities independently. I attest to the content of the Intraoperative Record and any orders documented therein. Any exception s are noted below.
[2019-05-28] MEDS: SODIUM CHLORIDE 0.9% 1000ML 1,000 ML IV SCH (23:53)
[2019-05-29] MEDS: CEFEPIME 2,000 MG in SYRINGE 7.5 ML IV SCH (00:03)
[2019-05-29] MEDS: SODIUM CHLORIDE 0.9% 1000ML 1,000 ML IV SCH (00:25)
[2019-05-29] MEDS: SENNA 8.6 MG TAB PO SCH (00:26)
[2019-05-29] MEDS ORDERED: HYDROCORTISONE SOD SUCCINATE 100 MG/2 ML VIAL IV STA (02:56)
[2019-05-29 03:09] LABS: BUN Creatinine Ratio 13.5 (10-20); Calcium 6.3 mg/dl (8.5-10.1); Creatinine Clr Calc Pharmacy 32.1 ml/min; Est GFR (African American) 47.6; Est GFR (Non-African American) 41.1; Potassium 5.6 mmol/L (3.5-5.1)
[2019-05-29 03:25] LABS: Hematocrit (blood only) 19.9 % (37-47); Hemoglobin 6.3 g/dL (12.0-16.0)
--- NOTE | 2019-05-29 04:33 | Death Summary ---
Date of Service May 29, 2019 Pronouncement Note Date and Time of Date of : 05/29/19 Time of : 04:09 Contributing Factors (1) Shock circulatory: (2) Acute blood loss anemia: (3) Atrial fibrillation: (4) Cerebrovascular disease: (5) Subcapital fracture of hip: (6) Infected surgical wound: Summary Additional details: Patient was made DNR as her blood pressure was not responding to two pressors after critical care talked to the daughter.Received total of 4units of prbc. Also received fluid bolus and hydrocortisone.Later patient developed agonal breathing and at 4:09 am today May 29 2019. Daughter was notified by nursing staff. Additional Data Confirmation of : no pulse, no respirations, no heart sounds and pupils fixed and dilated Family: contacted Attending physician: Sarabjit Osborn MD
[2019-05-29] MEDS ORDERED: FERROUS GLUCONATE 324 MG TAB PO SCH (08:00)
[2019-05-29] MEDS ORDERED: MULTIVITAMIN TAB PO SCH (09:00)
--- NOTE | 2019-05-29 10:06 | Communication Note ---
Date of Service: May 29, 2019 Patient early this morning. Case referred to Cryptologic Support Specialist by Clinical Coordinator Cryptologic Support Specialist directed that hospital providers should complete certificate. Tried to reach daughter by phone around 10:00 to offer condolences and answer any questions that she might have (Jaqueline Ng [phone]). There was no answer. Message left for her to call my cell # at her convenience.
--- NOTE | 2019-05-29 10:42 | Communication Note ---
Date of Service: May 29, 2019 Daughter Jaqueline returned my call. Condolences offered. Circumstances of her mother's illness discussed and questions answered. Wound culture from thigh aspirate 05/27 growing Enterobacter cloacae sensitive to cefepime. Wound cultures from OR yesterday growing gram negative bacilli- ID and sensitivities pending. Blood cultures from last evening pending. Perioperative hemorrhage and sepsis were both considered as possible causes of perioperative hypotension. Lactic acid was elevated, but procalcitonin was normal. Therefore, seems most likely that shock was secondary to hemorrhagic shock and not septic shock. Jaqueline expressed concern about delayed communication last evening when patient was in ICU postoperatively. Her contact info was not accurate / up-to-date. Home phone number (which Dr. Ruby and I tried) is no longer being used. Work number listed was actually her cell phone number (and not tried initially because of time of day). Will discuss with appropriate departments.
--- NOTE | 2019-05-29 13:03 | Communication Note ---
Date of Service: May 29, 2019 Critical CARE addendum: Was called by the nurse around 2:30 AM on May 29, 2019 stating the patient's blood pressure map is in the low 50s with max out on 2 pressors. Patient was still having bloody drainage in the wound VAC. Patient was given a total of 5 L since coming out of the OR which includes PRBCs. I was able to get in touch with daughter Jaqueline has been able to find the correct number for her at [phone]. Current condition of the patient and the prognosis was explained to the daughter. She understood the prognosis and relayed that she did not want to escalate care for her mother. She would like her mother's CODE STATUS to be again DNR. All questions were answered appropriately and intact. Hospitalist Dr. Garcia was informed about the conversation and patient was made DNR. Patient at 4:09 AM on May 29, 2019.
--- NOTE | 2019-05-29 19:52 | Discharge Summary ---
Date of Service May 29, 2019 Admission HPI Per Admitting Provider This is an 78-year-old female status post right hip hemiarthroplasty on 04/03/2019 after a right displaced subcapital femoral neck fracture with greater trochanter fracture secondary to mechanical fall. Of note she did have a syncopal episode at that time and was found to have evidence of new stroke on MRI and neurologically neurology evaluation. She is in atrial fibrillation patient that has been taken off Coumadin secondary to bleeding in the past she was continued on antiplatelet therapy and discharged to rehab on 04/07. On 05/13 she was readmitted for a post operative seroma. On 05/14 Dr. Gupta performed an evacuation of the seroma of the right hip with irrigation and debridement including skin hip skin, fascia, iliotibial band, vastus lateralis muscle. Wound dehiscence was seen status post right hemiarthroplasty. Her postoperative course was complicated by acute blood loss anemia on post-op day #1. She received 2 units of packed red blood cells on postoperative day 1. Wound cultures were performed on the surgical seroma and was found to be positive for corynebacterium. Infectious disease was consulted and was placed on ertapenem. She was discharged with a plan for 6 weeks of IV ertapenem. A PICC line was planned for 05/18 which the IV team was unable to insert and she instead underwent an ultrasound-guided line that would work for her antibiotics. [facility] and continues to receive ertapenem. However, staff has reported fever, change in mental status and persistent drainage of the hip wound and is concerned for persistent postoperati ve infection. Therefore she was transferred back to the ER for evaluation tonight. She report denies any pain in her hip. She denies any fevers or chills or any other symptoms at this time. Her wound is closed without evidence of drainage and bartolo and sutures are intact. There is no erythema around the surgical site. She is alert and appropriate. She reports doing well in rehab and is a partial weight-bear on her right leg. Principal Diagnosis wound infection right hip- Enterobacter cloacae OTHER ACUTE DIAGNOSES: postoperative hemorrhage with hemorrhagic shock Discharge Data Allergies Allergy/AdvReac Type Severity Reaction Status Date / Time Cipro Allergy Unknown unknown Verified 07/17/17 19:21 ciprofloxacin Allergy Unknown unknown Verified 05/25/19 14:01 clindamycin Allergy Unknown unknown Verified 05/25/19 14:01 lisinopril Allergy Unknown unknown Verified 05/25/19 14:01 Consultations 05/25/19 16:01 ED Decision to Admit Stat 05/25/19 19:45 Consult Case Management - Discharge Planning Routine Consult Infectious Diseases Routine Consult Orthopedic Surgery Routine Procedures Performed Operation Date: 05/28/19 07:00 Actual Procedures p Right Hip Wound Incision and Drainage, Irrigation and Debridement, Right Bipolar Hemiarthroplasty Head and Liner Exchange - Trev Gupta DO Ordered Studies 05/26/19 14:59 US extremity nonvascular Routine 05/27/19 07:00 US asp mjr jnt sh,hip,kn RT Routine 05/27/19 10:13 US guide needle placement Routine 05/28/19 20:36 US point of care ultrasound Urgent Hospital Course (1) Infection caused by Enterobacter cloacae: ORIF right hip performed on 04/03/19. Transferred to [facility] for skilled care. Readmitted 05/13/19 for evacuation of postop seroma. Cultures from right hip from OR 05/14 grew Enterobacter cloacae. ID consulted. Treated with IV ertapenem per sensitivities. Returned to [facility] for skilled care and continuation of ertapenem. Developed fever and readmitted to [facility] 05/25. Ortho and ID consulted. Antibiotic therapy changed to cefepime. Blood cultures from 05/25/19 obtained and remained negative. US guided aspirate right hip 05/27/19 grew gram negative bacilli (Enterobacter cloacae sensitive to cefepime). Taken to OR 05/28/19 where the following procedures were performed: 1. Right hip incision and drainage, recurrent infected hematoma. 2. Irrigation and debridement, extensive right hip infected hemiarthroplasty. 3. Right bipolar hemiarthroplasty, head and liner exchange. 4. Removal of hardware cables x2, deep bone implants. 5. Excision, nonunion avulsion fracture of greater trochanter. EBL 400 ml. Developed intraoperative hypotension. Received 2 units pRBC's, IV fluids, pressors in OR. Right IJ catheter was placed. Admitted to ICU postoperatively. Critical Care Medicine consulted and assumed ICU management. Differential diagnosis for hypotension included hemorrhagic shock and septic shock. Received broad spectrum antibiotics. Serum lactate was elevated, but procalcitonin was normal (making sepsis unlikely). Received 2 more units pRBC, additional IV fluids, and pressors. Hemodynamics improved with the above measures. During the night, patient developed recurrent hypotension associated with increasing bleeding from surgical drains. Plant Technician/Control Room Operator discussed situation with patient's daughter by phone; she indicated that resuscitation status should be DNR. She wanted her mother to pass away peacefully and did not wish additional aggressive measures. The patient ceased to breathe 05/29/19 at 4:09 a.m. (2) Acute blood loss anemia: As noted above. (3) Shock circulatory: As noted above. (4) Atrial fibrillation: Chronic AF. Rate controlled. Not anticoagulated because it was determined that risks outweighed the benefits. (5) Cerebrovascular disease: History of recent acute embolic strokes Mar 2019. Underlying chronic AF. Managed with aspirin and clopidogrel. Not anticoagulated because it was determined that risks outweighed the benefits. (6) Anemia: Recent anemia with baseline Hgb around 8. Anemia probably multifactorial, including inflammation from recent infection. (7) DVT prophylaxis: Received SQ heparin which was held the morning of surgery. Total Time Total Time Spent Total Time Spent (In Minutes): 0 Discharge Plan Discharge Items Patient Disposition: Discharge Diagnosis: wound infection right hip, Enterobacter cloacae acute blood loss anemia hemorrhagic shock Addtl Attending Provider Instructions: . Admission Data Admit Date/Time: 05/25/19 17:18 Other DC Date/Time DO NOT enter until pt leaves facility: 05/29/19 06:14
== END 2019-05-29 06:14 | disposition expired | DRG 467 ==
LOC: ED 12:03 → SUATTDRO 17:18 → 3N 17:18 → 1E 05-28 18:48
PROC: M.IDHIP (2019-05-28 07:00)